=== PATIENT | female | born 1945 | race Caucasian/White ===

== ENCOUNTER → 2016-08-01 | Day surgery (SDC) | payer MEDICARE, OTHER ==
[~2016-08-01] MED LIST: ASPI325T4 PO; ATORVASTATIN CA80 MG PO; CARV12.5 PO; FURO20TA3 PO; GLIP5TAB10 PO; IV RINGERS,LACTATED 1000ML 1,000 ML IV SCH; LISI40TA PO; METF10002 PO; OMEP40CA5 PO; PROPOFOL 60 ML IV ONE; SPIR25TA3 PO
[2016-08-01 10:30] VITALS: BP 139/64
--- NOTE | 2016-08-02 18:05 | PATHOLOGY ---
PATHOLOGY REPORT * * * * * * * * FINAL DIAGNOSIS: A. Duodenal biopsy, duodenal nodule: - Lymphangiectasia. B. Small bowel biopsy: - Prominent submucosal Yenni's glands. C. Gastric biopsy, gastric nodule: - Hyperplastic polyp showing mild acute and chronic inflammation with eosinophils. D. Esophageal biopsy, distal esophagus: - Segments of gastric mucosa showing mild chronic inflammation. E. Colon biopsies, transverse colon polyp: - Tubular adenoma. F. Colon biopsies, cecal polyp: - Tubular adenoma. G. Terminal ileum biopsy: - No significant pathologic abnormalities. H. Random colon biopsy: - No significant pathologic abnormalities. I. Colon biopsy, ascending colon polyp: - Tubular adenoma. J. Colorectal biopsies, rectal polyps: - Hyperplastic polyps (2). - Tubular adenoma (1). COMMENT: Sections of the duodenal nodule biopsy reveal dilated lacteals expanding the mucosal villi and forming a polypoid mass, consistent with lymphangiectasia. Sections of the small bowel biopsy reveal segments of duodenal mucosa showing prominent submucosal Yenni's glands. There are no sprue-like changes. Sections of the gastric nodule biopsy show foveolar hyperplasia and mild acute and chronic inflammation with admixed eosinophils. An immunoperoxidase stain for Helicobacter reveals no Helicobacter organisms. The findings are consistent with a hyperplastic polyp. There are no adenomatous changes or evidence of malignancy. Sections of the distal esophageal biopsy reveal segments of gastric mucosa showing mild chronic inflammation. There is no squamous esophageal mucosa. There is no evidence of Blunt's change, dysplasia, or malignancy. Sections of the transverse colon and cecal biopsies reveal tubular adenomas showing no high-grade dysplasia or evidence of malignancy. Sections of the terminal ileum biopsy reveal small intestine mucosa. There are no sprue-like changes or significant inflammatory changes. Sections of the random colon biopsy reveal segments of colonic mucosa. There is no evidence of a chronic destructive colitis, lymphocytic colitis, or collagenous colitis. Sections of the ascending colon biopsy reveal a tubular adenoma showing no high-grade dysplasia or evidence of malignancy. Sections of the rectal biopsies reveal two hyperplastic polyps and a single tubular adenoma. There is no high-grade dysplasia or evidence of malignancy. (LENM:; d/t: 08/02/16) Special Stain Performed: Immunoperoxidase stain for Helicobacter (C1) REPORT ELECTRONICALLY SIGNED BY: Dereck Narayan M.D. DATE/TIME: 08/02/2016 17:34 * * * * * * * * GROSS PATHOLOGY: A. Received in formalin labeled "Jeffrey, Rina and duodenal nodule," is a segment of nicole soft tissue measuring 0.3 cm in maximum dimension. The specimen is submitted entirely in cassette A1. B. Received in formalin labeled "Jeffrey, Rina and small bowel," are 2 segments of nicole soft tissue measuring 0.8 x 0.2 x 0.2 cm in aggregate dimensions and measuring 0.3 and 0.5 cm in maximum dimension. The specimen is submitted entirely in cassette B1. C. Received in formalin labeled "Jeffrey, Rina and gastric nodule," is a segment of nicole soft tissue measuring 0.3 cm in maximum dimension. The specimen is submitted entirely in cassette C1. D. Received in formalin labeled "Jeffrey, Rina and distal esophagus," is a segment of nicole soft tissue measuring 0.5 cm in maximum dimension. The specimen is submitted entirely in cassette D1. E. Received in formalin labeled "Jeffrey, Rina and transverse colon polyp," are 6 segments of nicole soft tissue measuring 1.8 x 0.3 x 0.2 cm in aggregate dimensions and ranging from 0.2 to 0.5 cm in maximum dimension. The specimen is submitted entirely in cassette E1. F. Received in formalin labeled "Jeffrey, Rina and cecal polyp," are 4 segments of nicole soft tissue measuring 1.5 x 0.3 x 0.2 cm in aggregate dimensions and ranging from 0.3 to 0.5 cm in maximum dimension. The specimen is submitted entirely in cassette F1. G. Received in formalin labeled "Jeffrey, Rina and terminal ileum," are 3 segments of nicole soft tissue measuring 0.9 x 0.3 x 0.2 cm in aggregate dimensions and ranging from 0.1 to 0.6 cm in maximum dimension. The specimen is submitted entirely in cassette G1. H. Received in formalin labeled "Jeffrey, Rina and random colon bx," are 4 segments of nicole soft tissue measuring 1.7 x 0.3 x 0.2 cm in aggregate dimensions and ranging from 0.3 to 0.5 cm in maximum dimension. The specimen is submitted entirely in cassette H1. I. Received in formalin labeled "Jeffrey, Rina and ascending polyp," are 2 segments of nicole soft tissue measuring 0.3 x 0.2 x 0.1 cm in aggregate dimensions and measuring 0.1 and 0.2 cm in maximum dimension. The specimen is submitted entirely in cassette I1. J. Received in formalin labeled "Rina Murphy and rectal polyps," are 3 segments of nicole soft tissue measuring 1.0 x 0.2 x 0.2 cm in aggregate dimensions and ranging from 0.3 to 0.4 cm in maximum dimension. The specimen is submitted entirely in cassette J1. (TTL; 08/01/2016) INITIAL CPT CODE(S): A; 46448 B; 09671 C; 56727, 18388 D; 47736 E; 29133 F; 35773 G; 55366 H; 03267 I; 92154 J; 36736 Professional services performed [place] [facility] [place] [address] Technical services performed by [facility] at [address] [place] [address]. SPECIMEN(S) RECEIVED: A.Duodenal nodule B.Small bowel biopsy C.Gastric nodule D.Distal esophagus E.Transverse polyp F.Cecal polyp G.Terminal ileum biopsy H.Random colon biopsies I.Ascending colon polyp J.Rectal polyps CLINICAL HISTORY: GERD, diarrhea PATIENT: RINA MURPHY /AGE: 2 1945 (Age: 71) PATIENT #: [id number] ALT CASE #: SPECIMEN COLLECTION DATE: 08/01/2016 SPECIMEN RECEIVED DATE: 08/01/2016 [facility] - [address] [place] [address] - PHONE: [phone] * * * END OF REPORT * * *
== END | disposition home or self-care (01) ==
LOC: ENDOS 08:20
PROVIDERS: ATTEND Internal Medicine Gastroenterology
DX: K57.30 Diverticulosis of large intestine without perforation or abscess without bleeding (principal); K62.1 Rectal polyp; K64.0 First degree hemorrhoids; D12.0 Benign neoplasm of cecum; D12.3 Benign neoplasm of transverse colon; D12.2 Benign neoplasm of ascending colon; K31.9 Disease of stomach and duodenum, unspecified; K21.0 Gastro-esophageal reflux disease with esophagitis; E78.00 Pure hypercholesterolemia, unspecified; I10 Essential (primary) hypertension; E11.9 Type 2 diabetes mellitus without complications; Z90.49 Acquired absence of other specified parts of digestive tract
CPT/HCPCS: 43239; 45380; 88305; 88342; 99153; G0500; J2704; G0641

== ENCOUNTER 2017-01-17 23:18 | Inpatient (IN) | payer MEDICARE, OTHER ==
[~2017-01-17] VITALS: Ht 165.1 cm; Wt 85.7 kg
[~2017-01-17 23:18] MED LIST changes: -ASPI325T4 PO; +ASPI325T8 PO; -IV RINGERS,LACTATED 1000ML 1,000 ML IV SCH; +METF-620 PO; -METF10002 PO; -PROPOFOL 60 ML IV ONE
[2017-01-18] VITALS (15 sets, daily range): BP systolic 100–149; BP diastolic 64–93
[2017-01-18 00:05] LABS: BASO # 0.1 x10^3/uL (0.0-0.2); BASO % 1 % (0-3); EOS % 1 % (0-3); HEMATOCRIT 38.4 % (36.0-47.0); HEMOGLOBIN 12.3 g/dL (12.0-15.5); LYMPH # 1.3 x10^3/uL (1.0-4.8); LYMPH % 10 % (24-48); MEAN CORPUSCULAR HEMOGLOBIN 28 pg (25-35); MEAN CORPUSCULAR HGB CONC 32 g/dL (31-37); MEAN CORPUSCULAR VOLUME 88 fL (79-100); MONO % 5 % (0-9); NEUT % 84 % (31-73); PLATELET COUNT 197 x10^3/uL (140-400); RED BLOOD COUNT 4.36 x10^6/uL (3.50-5.40); RED CELL DISTRIBUTION WIDTH 13.6 % (11.5-14.5); WHITE BLOOD COUNT 14.2 x10^3/uL (4.0-11.0)
[2017-01-18] MEDS ORDERED: CONTRAST GIVEN MC PRN (00:15)
[2017-01-18 00:16] LABS: CALCIUM 8.8 mg/dL (8.5-10.1); CREATININE 1.2 mg/dL (0.6-1.0); GFR 44.5; POTASSIUM 4.1 mmol/L (3.5-5.1)
[2017-01-18 00:22] LABS: ALBUMIN 3.6 g/dL (3.4-5.0); ALBUMIN/GLOBULIN RATIO 1.2 (1.0-1.7); TOTAL BILIRUBIN 0.8 mg/dL (0.2-1.0); TOTAL PROTEIN 6.7 g/dL (6.4-8.2)
[2017-01-18] MEDS ORDERED: IOHEXOL 300 MG/ML 75 ML VIAL IV ONE (00:30)
[2017-01-18] MEDS ORDERED: IV NORMAL SALINE 1000ML BAG 1,000 ML IV ONE (00:30)
--- NOTE | 2017-01-18 00:36 | PHYS DOC ---
Past Medical History Past Medical History: Diabetes-Type II, DVT, Hypertension, PA Past Surgical History: Cholecystectomy, Other Additional Past Surgical Histo: CATARACT, Alcohol Use: None Drug Use: None Adult General Chief Complaint Chief Complaint: CHEST PAIN HPI HPI Patient is a 71 year old F who presents with chest pain shortness of breath for the past day. Patient states she's developed left-sided chest pain or shortness of breath that feels like her previous PA. Patient denies any stent or bypass surgery. Patient states she is a history of PEs however does not want adequate medication at this time. Patient has a history of hypertension and hypercholesterol. Patient denies any nausea/vomiting/diarrhea. Patient denies any fevers. Patient rates her pain in the emergency room 09/28 with radiation to her back. Patient has no other complaints. Review of Systems Review of Systems GEN: Denies fevers, chills, sweats HEENT: Denies blurred vision, sore throat CV: Chest pain RESP: Short of breath GI: Denies n/v/d NEURO: Denies confusion, dizziness MSK: Denies weakness, joint pain/swelling Current Medications Current Medications Current Medications Medications (Trade) Dose Ordered Sig/Radha Start Time Stop Time Status Last Admin Dose Admin Aspirin (Children'S Aspirin) 324 mg 1X ONCE 01/18/17 01:00 01/18/17 01:01 DC 01/18/17 00:36 324 MG Heparin Sodium (Porcine) (Heparin Sodium) 2,150 unit PRN Q6HRS PRN 01/18/17 01:15 Heparin Sodium/ Dextrose 500 ml @ 0 mls/hr CONT PRN 01/18/17 01:15 01/18/17 01:37 20 MLS/HR Info (Do NOT chart on this entry -- for MONITORING) 1 each PRN DAILY PRN 01/18/17 00:15 01/20/17 00:14 Iohexol (Omnipaque 300 Mg/ml) 75 ml 1X ONCE 01/18/17 00:30 01/18/17 00:31 DC 01/18/17 00:41 60 ML Sodium Chloride 1,000 ml @ 1,000 mls/hr 1X ONCE 01/18/17 00:30 01/18/17 01:29 DC 01/18/17 00:15 1,000 MLS/HR Allergies Allergies Allergies Coded Allergies Type Severity Reaction Last Updated Verified No Known Drug Allergies 4/13/17 No Physical Exam Physical Exam GEN.: No apparent distress. Alert and oriented. HEENT: Head is normocephalic, atraumatic NECK: Supple. LUNGS: CTAB. HEART: RRR, S1, S2 present. Peripheral pulses intact ABDOMEN: Soft, nontender. Positive bowel sounds. EXTREMITIES: Without any cyanosis. NEUROLOGIC: Normal speech, normal tone PSYCHIATRIC: Normal affect, normal mood. SKIN: No ulcerations Current Patient Data Vital Signs Vital Signs Date Time Temp Pulse Resp B/P (MAP) Pulse Ox O2 Delivery O2 Flow Rate FiO2 01/18/17 00:22 78 14 107/69 (82) 92 Room Air 01/17/17 23:25 97.5 97.5 Lab Values Laboratory Tests Test 01/17/17 23:24 White Blood Count 14.2 x10^3/uL (4.0-11.0) H Red Blood Count 4.36 x10^6/uL (3.50-5.40) Hemoglobin 12.3 g/dL (12.0-15.5) Hematocrit 38.4 % (36.0-47.0) Mean Corpuscular Volume 88 fL (79-100) Mean Corpuscular Hemoglobin 28 pg (25-35) Mean Corpuscular Hemoglobin Concent 32 g/dL (31-37) Red Cell Distribution Width 13.6 % (11.5-14.5) Platelet Count 197 x10^3/uL (140-400) Neutrophils (%) (Auto) 84 % (31-73) H Lymphocytes (%) (Auto) 10 % (24-48) L Monocytes (%) (Auto) 5 % (0-9) Eosinophils (%) (Auto) 1 % (0-3) Basophils (%) (Auto) 1 % (0-3) Neutrophils # (Auto) 11.9 x10^3uL (1.8-7.7) H Lymphocytes # (Auto) 1.3 x10^3/uL (1.0-4.8) Monocytes # (Auto) 0.7 x10^3/uL (0.0-1.1) Eosinophils # (Auto) 0.2 x10^3/uL (0.0-0.7) Basophils # (Auto) 0.1 x10^3/uL (0.0-0.2) Sodium Level 137 mmol/L (136-145) Potassium Level 4.1 mmol/L (3.5-5.1) Chloride Level 101 mmol/L (98-107) Carbon Dioxide Level 25 mmol/L (21-32) Anion Gap 11 (6-14) Blood Urea Nitrogen 18 mg/dL (7-20) Creatinine 1.2 mg/dL (0.6-1.0) H Estimated GFR (Cockcroft-Gault) 44.5 BUN/Creatinine Ratio 15 (6-20) Glucose Level 180 mg/dL (70-99) H Calcium Level 8.8 mg/dL (8.5-10.1) Total Bilirubin 0.8 mg/dL (0.2-1.0) Aspartate Amino Transferase (AST) 20 U/L (15-37) Alanine Aminotransferase (ALT) 23 U/L (14-59) Alkaline Phosphatase 118 U/L (46-116) H Troponin I Quantitative 1.304 ng/mL (0.000-0.055) Total Protein 6.7 g/dL (6.4-8.2) Albumin 3.6 g/dL (3.4-5.0) Albumin/Globulin Ratio 1.2 (1.0-1.7) Laboratory Tests 01/17/17 23:24 Laboratory Tests 01/17/17 23:24 EKG EKG 2327: EKG shows normal sinus rhythm rate of 83 no STEMI 0023: Repeat EKG shows normal sinus rhythm rate of 81 no STEMI and no overall change from previous EKG[] Radiology/Procedures Radiology/Procedures Chest x-ray CM[] CTA of the chest IMPRESSION: 1. No central pulmonary embolus. Limited peripherally secondary to motion. There is one region of low-attenuation within a subsegmental pulmonary artery in the right lower lung that this is in a region of motion therefore this could all be from motion artifact but a tiny nonobstructive pulmonary embolus to this region is not excluded. Please note that contrast is seen distal to this region therefore even if there is a filling defect in the area it does not appear obstructive. 2. Small pleural effusions with interstitial thickening bilaterally as well as groundglass opacities. Could be from pulmonary edema although regions of airway inflammation is not excluded given the groundglass component. Course & Med Decision Making Course & Med Decision Making Pertinent Labs and Imaging studies reviewed. (See chart for details) ED course: Patient was seen and examined emergency room cardiac workup was ordered on the patient along with a CT angios the chest to rule out PE 0015: Lab called for an elevated troponin of 1.30 4 repeat EKG was ordered at this time 0128: Discussed CC/HP/PMH with Dr. Soriano and recommends admit to the ICU on a heparin drip and a nitro drip 0136: Discussed CC/HP/PMH with Dr. Jacobs and recommends admit to the ICU MDM: After reviewing the chart, CC/HPI/PMH, physical exam, [lab results], [ radiological results], I do not believe the patient's having a STEMI after 2 EK[address] do not show ST elevations consistent with a STEMI however the patient has elevated troponin with concerning signs for unstable angina and NSTEMI. Patient will be admitted to the cardiac ICU on a heparin drip and a nitro drip to medicine with cardiology on consult. Critical care time was 35 minutes exclusive of procedures.[] Dragon Disclaimer Dragon Disclaimer This electronic medical record was generated, in whole or in part, using a voice recognition dictation system. Departure Departure Impression: Primary Impression: NSTEMI (non-ST elevated myocardial infarction) Disposition: ADMITTED INPATIENT Admitting Physician: Pita Mathur Condition: STABLE Referrals: ELIZABETH NELSON MD (PCP) MANAV MERCEDES DO Jan 18, 2017 00:36
[2017-01-18] MEDS ORDERED: ASPIRIN CHEWABLE 81 MG TABLET. PO ONE (01:00)
[2017-01-18] MEDS ORDERED: HEPARIN for IV BOLUS 10,000 UNIT/10 ML VIAL. IV PRN (01:15)
[2017-01-18] MEDS ORDERED: NITROGLYCERIN SUBLINGUAL 0.4 MG BOTTLE OF 25. SL PRN (01:30)
[2017-01-18] MEDS ORDERED: ONDANSETRON PF 4 MG/2 ML VIAL. IV PRN (01:30)
[2017-01-18] MEDS ORDERED: ACETAMINOPHEN 325 MG TABLET. PO PRN (01:30)
[2017-01-18] MEDS ORDERED: MORPHINE SULFATE 4 MG/ML DISP.SYRIN. IV PRN (01:30)
[2017-01-18] MEDS: HEPARIN 25,000UTS/500ML PREMIX 500 ML IV PRN ×2 (01:37→23:18)
--- NOTE | 2017-01-18 01:56 | RAD ---
INDICATION: chest pain and shortness of breath, hx of DVT COMPARISON: September 24, 2004 TECHNIQUE: Axial CT images obtained through the chest. Intravenous contrast utilized. Angiogram 3D images processed per protocol. One or more of the following individualized dose reduction techniques were utilized for this examination: 1. Automated exposure control; 2. Adjustment of the mA and/or kV according to patient size; 3. Use of iterative reconstruction technique. FINDINGS: Mild interstitial opacities bilaterally. There is some mild groundglass opacities bilaterally. Small pleural effusions. No evidence of pneumothorax. There is very little contrast within the thoracic aorta therefore is not well evaluated on this exam. No definite aneurysm. Calcific atherosclerosis is seen. Nodular thickening of left adrenal gland, is low-attenuation therefore favor adenoma. Coronary artery calcific atherosclerosis. Degenerative changes spine. No embolus in the central pulmonary arteries. Limited peripherally secondary to motion IMPRESSION: 1. No central pulmonary embolus. Limited peripherally secondary to motion. There is one region of low-attenuation within a subsegmental pulmonary artery in the right lower lung that this is in a region of motion therefore this could all be from motion artifact but a tiny nonobstructive pulmonary embolus to this region is not excluded. Please note that contrast is seen distal to this region therefore even if there is a filling defect in the area it does not appear obstructive. 2. Small pleural effusions with interstitial thickening bilaterally as well as groundglass opacities. Could be from pulmonary edema although regions of airway inflammation is not excluded given the groundglass component. Electronically signed by: Jonathon Bowles MD (01/18/2017 1:52 AM) [facility]
[2017-01-18] MEDS ORDERED: HEPARIN for IV BOLUS 10,000 UNIT/10 ML VIAL. IV ONE (02:00)
[2017-01-18] MEDS ORDERED: NITROGLYCERIN PREMIX 250 ML IV ONE (02:00)
[2017-01-18] MEDS ORDERED: GLIP5TAB10 PO (03:11)
[2017-01-18] MEDS ORDERED: FURO40TA4 PO (03:11)
[2017-01-18] MEDS ORDERED: CARV25TA2 PO (03:11)
[2017-01-18] MEDS: ANTI-COAG MONITOR BY PHARMACY. MC PRN ×2 (04:00→11:05)
--- NOTE | 2017-01-18 08:09 | RAD ---
Portable AP chest. History: Short of breath, chest pain AP view was taken of the chest. Patient's taken a poor inspiration. There is mild pulmonary vascular congestion. There are no confluent areas of infiltrate. There is no effusion. Impression: 1. Mild pulmonary vascular congestion or mild interstitial infiltrates.
--- NOTE | 2017-01-18 08:27 | CONS ---
DATE OF CONSULTATION: 01/18/2017 REASON FOR CONSULTATION: Non-ST elevation DE. HISTORY OF PRESENT ILLNESS: The patient is a pleasant 71-year-old woman who presented to the ER with chest pressure and discomfort yesterday evening while at a baseball game with her family. She reported that this was a similar, but not exactly in nature to her previous hospitalization several years ago for what appears to be a myocardial infarction without any intervention. The patient reports at baseline that she is functional and denies any exertional chest pain, orthopnea, PND or lower extremity edema. She follows regularly with Dr. Dias at [facility] and was due to follow up with him in the next several days. She denies any syncope or palpitations. Reports compliance with her medications. Upon arrival in the ER, she was noted to have chest discomfort which resolved with nitroglycerin and due to the elevated troponin, was started on a heparin drip and admitted to the ICU for further evaluation and treatment. Overnight, the patient reports that her chest pain is diminished, but has not completely abated. PAST MEDICAL HISTORY: 1. Hypertension. 2. Diabetes. SOCIAL HISTORY: The patient denies any alcohol, tobacco or illicit drug use. ALLERGIES: No known drug allergies. FAMILY HISTORY: Noncontributory. REVIEW OF SYSTEMS: Negative for 10 out of 14 systems reviewed, unless otherwise mentioned above in HPI. CURRENT CARDIOVASCULAR MEDICATIONS: Heparin drip. PHYSICAL EXAMINATION: VITAL SIGNS: Afebrile, 82, 20, 128/72, 96% on room air. GENERAL: She is alert and oriented, in no acute distress. HEAD AND NECK: Unremarkable. CARDIAC: Regular rate and rhythm without any murmurs, rubs or gallops. LUNGS: Clear to auscultation bilaterally. ABDOMEN: Soft, nontender, nondistended. EXTREMITIES: No clubbing, cyanosis or edema. NEUROLOGIC: No focal deficits. MUSCULOSKELETAL: No trauma. DIAGNOSTIC STUDIES: Hemoglobin 12.3, platelets 197. Creatinine 1.2. Troponin 1.3. Normal liver function panel. CTA of the chest is unremarkable for any acute pulmonary emboli. There are small bilateral pleural effusions. EKG is sinus rhythm without any acute ST or T-wave changes. IMPRESSION: 1. Unstable acute coronary syndrome with elevated troponin consistent with a non-ST elevation myocardial infarction. 2. Hypertension, controlled. 3. Diabetes. RECOMMENDATIONS: 1. Given that the patient has multiple risk factors with classic symptoms of acute coronary syndrome with elevated biomarkers, we will plan for a cardiac catheterization in the next 48 hours. If her enzymes or symptoms necessitate, we will pursue a cardiac catheterization sooner. 2. We will start the patient on aspirin 81 mg daily, continue the heparin drip as well as initiate her on metoprolol 25 mg b.i.d. in addition to atorvastatin 40 mg daily. Thank you for this consultation. IOANA QUIROS MD DR: KENNETH/dereck JOB#: [id number] / [id number]
[2017-01-18] MEDS: ASPIRIN CHEWABLE 81 MG TABLET. PO SCH (08:38)
[2017-01-18] MEDS: METOPROLOL TART IMMED RELEASE 25 MG TABLET. PO SCH ×2 (08:38→21:19)
[2017-01-18] MEDS ORDERED: FLU VACC QS2017-18 (36MOS+)/PF 0.5 ML SYRINGE. VAX IM ONE (09:00)
[2017-01-18] MEDS ORDERED: PNEUMOC CONJ VACC 23-VALENT 0.5 ML VIAL. VAX IM ONE (09:00)
[2017-01-18] MEDS ORDERED: FUROSEMIDE 40 MG/4 ML VIAL. IVP ONE (09:30)
[2017-01-18] MEDS ORDERED: DEXTROSE 50% 25 GM / 50ML DISP.SYRIN. IV PRN (10:30)
[2017-01-18] MEDS: SPIRONOLACTONE 25 MG TABLET PO SCH (11:01)
[2017-01-18] MEDS: PANTOPRAZOLE 40 MG TABLET.DR. PO SCH (11:01)
[2017-01-18] MEDS: FUROSEMIDE 40 MG TABLET. PO SCH (11:01)
[2017-01-18] MEDS: INSULIN ASPART 300 UNITS/3 ML INSULN.PEN SQ SCH ×2 (11:50→17:11)
[2017-01-18] MEDS ORDERED: PNEUMOCOCCAL VAX SCREEN BY RX. MC ONE (12:00)
[2017-01-18] MEDS ORDERED: INFLUENZA VAX SCREEN BY RX. MC ONE (12:00)
--- NOTE | 2017-01-18 12:51 | EKG ---
[facility] [address] [place] [address] Test Date: 2017-01-17 Test Time: 23:23:55 Pat Name: RINA SIN Department: Room: 114 1 Gender: F [employer]: : 1945 Requested By: MANAV MERCEDES Order Number: [id number] Reading MD: Bulmaro Gibson Measurements Intervals [place] Rate: 83 P: 31 MD: 148 QRS: 1 QRSD: 78 T: 60 QT: 354 QTc: 416 Interpretive Statements SINUS RHYTHM NONSPECIFIC ST-T WAVE CHANGES. RI6.01 Unconfirmed report No previous ECG available for comparison Electronically Signed On 02-05-2017 10:44:02 CDT by Bulmaro Gibson
--- NOTE | 2017-01-18 12:52 | EKG ---
[facility] [address] [place] [address] Test Date: 2017-01-18 Test Time: 00:29:15 Pat Name: RINA SIN Department: Room: 114 1 Gender: F Automatic [employer]: : 1945 Requested By: MANAV MERCEDES Order Number: [id number] Reading MD: Bulmaro Gibson Measurements Intervals [place] Rate: 81 P: 62 IA: 146 QRS: 17 QRSD: 86 T: 28 QT: 406 QTc: 472 Interpretive Statements SINUS RHYTHM PROLONGED QT RI6.01 Unconfirmed report No previous ECG available for comparison Electronically Signed On 02-05-2017 10:44:16 CDT by Bulmaro Gibson
--- NOTE | 2017-01-18 13:01 | PDOC1 ---
History and Physical Date of Admission Date of Admission 01/18/17 Identification/Chief Complaint Chief Complaint SOB,CP Problems: Source Source: Chart review, Patient History of Present Illness History of Present Illness Patient is a 71 year old F who presents with chest pain shortness of breath for the past day. Patient states she was at [employer] game felt [place] and nausea , on the way to car was very short winded and thought might not make it to the car, on the way developed left-sided chest pain that feels like her previous AR. Patient denies any stent or bypass surgery but had AR without intervention in past . Patient states she is a history of PE . Patient has a history of hypertension and hypercholesterolemia . Patient denies any vomiting/diarrhea. Patient denies any fevers. Patient rated her pain in the emergency room /10 with radiation to her back. Patient has no other complaints. Past Medical History Cardiovascular: CAD, CHF, HTN, AR, Hyperlipidemia Pulmonary: Bronchitis, Pulmonary embolus, Other (DVT) CENTRAL NERVOUS SYSTEM: Periperal neuropathy GI: GERD Hepatobiliary: Other (cholecystectomy) Psych: Anxiety Rheumatologic: Other (arthritis) Infectious disease: No pertinent hx Renal/: UTI Endocrine: Diabetes Dermatology: No pertinent hx Past Surgical History Past Surgical History: Cholecystectomy Family History Family History: Diabetes, Hypertension Social History Smoke: Quit ALCOHOL: rare Drugs: None Current Problem List Problem List Problems Medical Problems: (1) NSTEMI (non-ST elevated myocardial infarction) Status: Acute Current Medications Current Medications Current Medications Medications (Trade) Dose Ordered Sig/Radha Start Time Stop Time Status Last Admin Dose Admin Acetaminophen (Tylenol) 650 mg PRN Q4HRS PRN 01/18/17 01:30 01/19/17 01:29 Aspirin (Children'S Aspirin) 81 mg DAILYWBKFT 01/18/17 08:00 01/18/17 08:38 81 MG Atorvastatin Calcium (Lipitor) 80 mg QHS 01/18/17 21:00 Carvedilol (Coreg) 12.5 mg HS 01/18/17 21:00 UNV Dextrose (Dextrose 50%-Water Syringe) 12.5 gm PRN Q15MIN PRN 01/18/17 10:30 Furosemide (Lasix) 40 mg DAILY 01/18/17 11:00 01/18/17 11:01 40 MG Heparin Sodium (Porcine) (Heparin Sodium) 4,000 unit 1X ONCE 01/18/17 02:00 01/18/17 02:01 DC 01/18/17 01:31 4,000 UNIT Heparin Sodium/ Dextrose 500 ml @ 0 mls/hr CONT PRN 01/18/17 01:15 01/18/17 01:37 20 MLS/HR Influenza Virus Vaccine Quadrival (Fluarix Quad [id number] Syringe) 0.5 ml ONCE ONCE 01/18/17 09:00 01/18/17 09:01 DC 01/18/17 08:40 0.5 ML Info (Anti-Coagulation Monitoring By Pharmacy) 1 each PRN DAILY PRN 01/18/17 01:30 01/18/17 11:05 1 EACH Info (Do NOT chart on this entry -- for MONITORING) 1 each PRN DAILY PRN 01/18/17 00:15 01/20/17 00:14 Info (Do NOT chart on this placeholder) 1 each 1X ONCE 01/18/17 12:00 01/18/17 12:01 UNV Insulin Aspart (NovoLOG) 0-7 UNITS TIDWMEALS 01/18/17 12:00 01/18/17 11:50 4 UNITS Insulin Detemir (Levemir) 5 units QHS 01/18/17 21:00 Iohexol (Omnipaque 300 Mg/ml) 75 ml 1X ONCE 01/18/17 00:30 01/18/17 00:31 DC 01/18/17 00:41 60 ML Metoprolol Tartrate (Lopressor) 25 mg BID 01/18/17 09:00 01/18/17 08:38 25 MG Morphine Sulfate 4 mg PRN Q2HR PRN 01/18/17 01:30 01/19/17 01:29 Nitroglycerin (Nitrostat) 0.4 mg PRN Q5MIN PRN 01/18/17 01:30 01/19/17 01:29 Nitroglycerin/ Dextrose 250 ml @ 0 mls/hr 1X ONCE 01/18/17 02:00 01/18/17 02:01 DC 01/18/17 01:41 1.5 MLS/HR Non-Formulary Medication 1 tab DAILY 01/19/17 09:00 UNV Ondansetron HCl (Zofran) 4 mg PRN Q8HRS PRN 01/18/17 01:30 01/19/17 01:29 Pantoprazole Sodium (Protonix) 40 mg DAILYAC 01/18/17 11:00 01/18/17 11:01 40 MG Pneumococcal Polyvalent Vaccine (Do NOT chart on this placeholder) 1 each 1X ONCE 01/18/17 12:00 01/18/17 12:01 UNV Pneumococcal Polyvalent Vaccine (Pneumovax 23) 0.5 ml ONCE ONCE 01/18/17 09:00 01/18/17 09:01 DC 01/18/17 08:39 0.5 ML Sodium Chloride 1,000 ml @ 1,000 mls/hr 1X ONCE 01/18/17 00:30 01/18/17 01:29 DC 01/18/17 00:15 1,000 MLS/HR Spironolactone (Aldactone) 25 mg DAILY 01/18/17 11:00 01/18/17 11:01 25 MG Allergies Allergies Allergies Coded Allergies Type Severity Reaction Last Updated Verified No Known Drug Allergies 08/01/16 No ROS Review of System CONSTITUTIONAL: No fever or chills EYES: No recent changes SKIN: No rash or itching CARDIOVASCULAR: see HPI,No palpitations RESPIRATORY: + SOB no cough GASTROINTESTINAL: + nausea, No vomiting or abdominal pain NEUROLOGICAL: +headaches and mild weakness ENDOCRINE: No cold or heat intolerance GENITOURINARY: No urgency or frequency of urination MUSCULOSKELETAL: No back pain or joint pain LYMPHATICS: No enlarged lymph nodes Physical Exam Physical Exam GEN.: No apparent distress. Alert and oriented. HEENT: Head is normocephalic, atraumatic NECK: Supple. LUNGS: basilar rales HEART: RRR, S1, S2 present. Peripheral pulses intact ABDOMEN: Soft, nontender. Positive bowel sounds. EXTREMITIES: Without any cyanosis. NEUROLOGIC: Normal speech, normal tone PSYCHIATRIC: Normal affect, normal mood. SKIN: No ulcerations Vitals Vitals Vital Signs Date Time Temp Pulse Resp B/P (MAP) Pulse Ox O2 Delivery O2 Flow Rate FiO2 01/18/17 12:00 97.5 64 27 109/77 (88) 98 Room Air 97.5 Labs Labs Laboratory Tests Test 01/17/17 23:24 01/18/17 07:59 01/18/17 11:48 White Blood Count 14.2 x10^3/uL (4.0-11.0) Red Blood Count 4.36 x10^6/uL (3.50-5.40) Hemoglobin 12.3 g/dL (12.0-15.5) Hematocrit 38.4 % (36.0-47.0) Mean Corpuscular Volume 88 fL (79-100) Mean Corpuscular Hemoglobin 28 pg (25-35) Mean Corpuscular Hemoglobin Concent 32 g/dL (31-37) Red Cell Distribution Width 13.6 % (11.5-14.5) Platelet Count 197 x10^3/uL (140-400) Neutrophils (%) (Auto) 84 % (31-73) Lymphocytes (%) (Auto) 10 % (24-48) Monocytes (%) (Auto) 5 % (0-9) Eosinophils (%) (Auto) 1 % (0-3) Basophils (%) (Auto) 1 % (0-3) Neutrophils # (Auto) 11.9 x10^3uL (1.8-7.7) Lymphocytes # (Auto) 1.3 x10^3/uL (1.0-4.8) Monocytes # (Auto) 0.7 x10^3/uL (0.0-1.1) Eosinophils # (Auto) 0.2 x10^3/uL (0.0-0.7) Basophils # (Auto) 0.1 x10^3/uL (0.0-0.2) Sodium Level 137 mmol/L (136-145) Potassium Level 4.1 mmol/L (3.5-5.1) Chloride Level 101 mmol/L (98-107) Carbon Dioxide Level 25 mmol/L (21-32) Anion Gap 11 (6-14) Blood Urea Nitrogen 18 mg/dL (7-20) Creatinine 1.2 mg/dL (0.6-1.0) Estimated GFR (Cockcroft-Gault) 44.5 BUN/Creatinine Ratio 15 (6-20) Glucose Level 180 mg/dL (70-99) Calcium Level 8.8 mg/dL (8.5-10.1) Total Bilirubin 0.8 mg/dL (0.2-1.0) Aspartate Amino Transf (AST/SGOT) 20 U/L (15-37) Alanine Aminotransferase (ALT/SGPT) 23 U/L (14-59) Alkaline Phosphatase 118 U/L (46-116) Troponin I Quantitative 1.304 ng/mL (0.000-0.055) 1.384 ng/mL (0.000-0.055) Total Protein 6.7 g/dL (6.4-8.2) Albumin 3.6 g/dL (3.4-5.0) Albumin/Globulin Ratio 1.2 (1.0-1.7) PY-Pjg-J-Type Natriuretic Peptide 3605 pg/mL (0-124) Glucose (Fingerstick) 222 mg/dL (70-99) Laboratory Tests Test 01/17/17 23:24 01/18/17 07:59 01/18/17 11:48 White Blood Count 14.2 x10^3/uL (4.0-11.0) Red Blood Count 4.36 x10^6/uL (3.50-5.40) Hemoglobin 12.3 g/dL (12.0-15.5) Hematocrit 38.4 % (36.0-47.0) Mean Corpuscular Volume 88 fL (79-100) Mean Corpuscular Hemoglobin 28 pg (25-35) Mean Corpuscular Hemoglobin Concent 32 g/dL (31-37) Red Cell Distribution Width 13.6 % (11.5-14.5) Platelet Count 197 x10^3/uL (140-400) Neutrophils (%) (Auto) 84 % (31-73) Lymphocytes (%) (Auto) 10 % (24-48) Monocytes (%) (Auto) 5 % (0-9) Eosinophils (%) (Auto) 1 % (0-3) Basophils (%) (Auto) 1 % (0-3) Neutrophils # (Auto) 11.9 x10^3uL (1.8-7.7) Lymphocytes # (Auto) 1.3 x10^3/uL (1.0-4.8) Monocytes # (Auto) 0.7 x10^3/uL (0.0-1.1) Eosinophils # (Auto) 0.2 x10^3/uL (0.0-0.7) Basophils # (Auto) 0.1 x10^3/uL (0.0-0.2) Sodium Level 137 mmol/L (136-145) Potassium Level 4.1 mmol/L (3.5-5.1) Chloride Level 101 mmol/L (98-107) Carbon Dioxide Level 25 mmol/L (21-32) Anion Gap 11 (6-14) Blood Urea Nitrogen 18 mg/dL (7-20) Creatinine 1.2 mg/dL (0.6-1.0) Estimated GFR (Cockcroft-Gault) 44.5 BUN/Creatinine Ratio 15 (6-20) Glucose Level 180 mg/dL (70-99) Calcium Level 8.8 mg/dL (8.5-10.1) Total Bilirubin 0.8 mg/dL (0.2-1.0) Aspartate Amino Transf (AST/SGOT) 20 U/L (15-37) Alanine Aminotransferase (ALT/SGPT) 23 U/L (14-59) Alkaline Phosphatase 118 U/L (46-116) Troponin I Quantitative 1.304 ng/mL (0.000-0.055) 1.384 ng/mL (0.000-0.055) Total Protein 6.7 g/dL (6.4-8.2) Albumin 3.6 g/dL (3.4-5.0) Albumin/Globulin Ratio 1.2 (1.0-1.7) AM-Hqc-M-Type Natriuretic Peptide 3605 pg/mL (0-124) Glucose (Fingerstick) 222 mg/dL (70-99) VTE Prophylaxis Ordered VTE Prophylaxis Devices: Yes VTE Pharmacological Prophylaxi: Yes Assessment/Plan Assessment/Plan 1-NSTEMI 2-acute CHF 3-DM II 4-HTN 5-HLD pt on anticoagulation, NTG, lasix and close monitoring, plan for cath Friday noted , control pain , hold metformin and monitor BS , appreciate C.V KLEVER Sharma MD Jan 18, 2017 13:01
[2017-01-18] MEDS ORDERED: ATORVASTATIN CALCIUM 40 MG TABLET. PO SCH (21:00)
[2017-01-18] MEDS ORDERED: CARVEDILOL 12.5 MG TABLET. PO SCH (21:00)
[2017-01-18] MEDS: ATORVASTATIN CALCIUM 40 MG TABLET. PO SCH (21:19)
[2017-01-18] MEDS: INSULIN DETEMIR 300 UNITS/3 ML INSULN.PEN. SQ SCH (21:21)
[2017-01-19] VITALS: BP 117/70
[2017-01-19 03:31] LABS: BASO # 0.1 x10^3/uL (0.0-0.2); BASO % 1 % (0-3); EOS % 2 % (0-3); HEMOGLOBIN 11.9 g/dL (12.0-15.5); LYMPH # 1.7 x10^3/uL (1.0-4.8); LYMPH % 18 % (24-48); MEAN CORPUSCULAR HEMOGLOBIN 29 pg (25-35); MEAN CORPUSCULAR HGB CONC 33 g/dL (31-37); MEAN CORPUSCULAR VOLUME 88 fL (79-100); MONO % 7 % (0-9); NEUT % 73 % (31-73); PLATELET COUNT 164 x10^3/uL (140-400); RED BLOOD COUNT 4.09 x10^6/uL (3.50-5.40); RED CELL DISTRIBUTION WIDTH 13.8 % (11.5-14.5); WHITE BLOOD COUNT 9.4 x10^3/uL (4.0-11.0)
[2017-01-19 03:47] LABS: CALCIUM 8.7 mg/dL (8.5-10.1); CREATININE 1.5 mg/dL (0.6-1.0); GFR 34.4; POTASSIUM 4.1 mmol/L (3.5-5.1)
[2017-01-19 04:00] VITALS: BP 113/90
[2017-01-19] MEDS: ASPIRIN CHEWABLE 81 MG TABLET. PO SCH (07:46)
[2017-01-19] MEDS: PANTOPRAZOLE 40 MG TABLET.DR. PO SCH (07:46)
[2017-01-19] MEDS: INSULIN ASPART 300 UNITS/3 ML INSULN.PEN SQ SCH ×3 (07:46→17:00)
[2017-01-19] MEDS: FUROSEMIDE 40 MG TABLET. PO SCH (07:54)
[2017-01-19] MEDS: SPIRONOLACTONE 25 MG TABLET PO SCH (07:54)
--- NOTE | 2017-01-19 07:55 | PDOC ---
CARDIOLOGY PROGRESS NOTE SUBJECTIVE: New onset atrial fibrillation overnight. Denies any new pain/symptoms at this time. OBJECTIVE: Vital SIgns: Vital Signs Date Time Temp Pulse Resp B/P (MAP) Pulse Ox O2 Delivery O2 Flow Rate FiO2 01/19/17 04:00 98.5 122 17 113/90 (98) 97 Room Air 98.5 Objective: GEN.: No apparent distress. Alert and oriented. HEENT: Head is normocephalic, atraumatic NECK: Supple. LUNGS: Clear to auscultation. HEART: RRR, S1, S2 present. Peripheral pulses intact ABDOMEN: Soft, nontender. Positive bowel sounds. EXTREMITIES: Without any cyanosis. NEUROLOGIC: Normal speech, normal tone PSYCHIATRIC: Normal affect, normal mood. SKIN: No ulcerations CURRENT MEDICATIONS: Atorvastatin 80mg qhs Spironolactone 25mg daily Lasix 40mg daily Metop 25mg bid Hep gtt ASA 81mg daily DIAGNOSTIC TESTING: Cr 1.2 to 1.5 ASSESSMENT: 1. NSTEMI 2. HTN 3. DLP 4. RACHELLE on mild CKD 5. PAF Problems: PLAN: 1. Hold lasix, spironolactone 2. Give 500ml NS bolus 3. Repeat BMP tonight. 4. Plan for cardiac cath tomorrow unless worsening cr. 5. Strict I/O's. Discussed with family and RN. Thanks. Will follow. IOANA QUIROS MD Jan 19, 2017 07:55
[2017-01-19 08:00] VITALS: BP 154/76
[2017-01-19] MEDS ORDERED: IV NORMAL SALINE 500ML BAG 500 ML IV ONE (08:00)
[2017-01-19] MEDS: METOPROLOL TART IMMED RELEASE 25 MG TABLET. PO SCH ×2 (09:00→20:32)
[2017-01-19] MEDS ORDERED: NON FORMULARY ITEM (Carvedilol 1 TAB) PO SCH (09:00)
[2017-01-19] MEDS: ANTI-COAG MONITOR BY PHARMACY. MC PRN (10:27)
[2017-01-19 12:00] VITALS: BP 108/63
--- NOTE | 2017-01-19 12:30 | PDOC ---
SUBJECTIVE Subjective had A Fib between 3-6 AM back in sinus now, no further CP, OBJECTIVE Vital Signs Vital Signs Date Time Temp Pulse Resp B/P (MAP) Pulse Ox O2 Delivery O2 Flow Rate FiO2 01/19/17 09:00 61 154/76 01/19/17 08:00 Room Air 01/19/17 08:00 97.5 64 26 154/76 (102) 98 Room Air 97.5 01/19/17 04:00 98.5 122 17 113/90 (98) 97 Room Air 98.5 01/19/17 00:00 98.5 74 20 117/70 (86) 97 Room Air 98.5 01/18/17 21:19 75 102/65 01/18/17 20:00 98.1 86 21 141/93 (109) 100 Room Air 98.1 01/18/17 20:00 Room Air 01/18/17 16:00 97.9 69 21 102/65 (77) 98 Room Air 97.9 PHYSICAL EXAM Physical Exam lungs clear heart RRR abd soft ext no edema ASSESSMENT/PLAN Assessment/Plan 1-NSTEMI on heparin for cath in AM 2-acute CHF 3-DM II 4-HTN 5-HLD 6- paroxysmal A Fib converted to sinus spontaneously 7-acute on chronic renal failue agree with holding lasix and spironolactone recheck lab in AM Problems: COMMENT Lab Laboratory Tests Test 01/18/17 17:07 01/18/17 20:35 01/18/17 21:18 01/19/17 02:35 Glucose (Fingerstick) 178 mg/dL (70-99) 170 mg/dL (70-99) Heparin Anti-Xa Act, Unfractionated 0.43 IU/mL (0.30-0.70) 0.43 IU/mL (0.30-0.70) White Blood Count 9.4 x10^3/uL (4.0-11.0) Red Blood Count 4.09 x10^6/uL (3.50-5.40) Hemoglobin 11.9 g/dL (12.0-15.5) Hematocrit 36.0 % (36.0-47.0) Mean Corpuscular Volume 88 fL (79-100) Mean Corpuscular Hemoglobin 29 pg (25-35) Mean Corpuscular Hemoglobin Concent 33 g/dL (31-37) Red Cell Distribution Width 13.8 % (11.5-14.5) Platelet Count 164 x10^3/uL (140-400) Neutrophils (%) (Auto) 73 % (31-73) Lymphocytes (%) (Auto) 18 % (24-48) Monocytes (%) (Auto) 7 % (0-9) Eosinophils (%) (Auto) 2 % (0-3) Basophils (%) (Auto) 1 % (0-3) Neutrophils # (Auto) 6.8 x10^3uL (1.8-7.7) Lymphocytes # (Auto) 1.7 x10^3/uL (1.0-4.8) Monocytes # (Auto) 0.7 x10^3/uL (0.0-1.1) Eosinophils # (Auto) 0.1 x10^3/uL (0.0-0.7) Basophils # (Auto) 0.1 x10^3/uL (0.0-0.2) Sodium Level 141 mmol/L (136-145) Potassium Level 4.1 mmol/L (3.5-5.1) Chloride Level 103 mmol/L (98-107) Carbon Dioxide Level 28 mmol/L (21-32) Anion Gap 10 (6-14) Blood Urea Nitrogen 23 mg/dL (7-20) Creatinine 1.5 mg/dL (0.6-1.0) Estimated GFR (Cockcroft-Gault) 34.4 Glucose Level 150 mg/dL (70-99) Calcium Level 8.7 mg/dL (8.5-10.1) Test 01/19/17 07:45 01/19/17 11:36 Glucose (Fingerstick) 149 mg/dL (70-99) 176 mg/dL (70-99) KLEVER OGDEN MD Jan 19, 2017 12:30
[2017-01-19 16:00] VITALS: BP 125/65
[2017-01-19 18:35] LABS: CALCIUM 8.5 mg/dL (8.5-10.1); CREATININE 1.8 mg/dL (0.6-1.0); GFR 27.9; POTASSIUM 3.8 mmol/L (3.5-5.1)
[2017-01-19 20:00] VITALS: BP 151/70
[2017-01-19] MEDS: ATORVASTATIN CALCIUM 40 MG TABLET. PO SCH (20:31)
[2017-01-19] MEDS: INSULIN DETEMIR 300 UNITS/3 ML INSULN.PEN. SQ SCH (20:32)
[2017-01-19] MEDS: HEPARIN 25,000UTS/500ML PREMIX 500 ML IV PRN (23:55)
[2017-01-20] VITALS (12 sets, daily range): BP systolic 123–157; BP diastolic 53–98
[2017-01-20 06:01] LABS: HEMOGLOBIN 10.3 g/dL (12.0-15.5); RED BLOOD COUNT 3.52 x10^6/uL (3.50-5.40); WHITE BLOOD COUNT 5.3 x10^3/uL (4.0-11.0)
[2017-01-20 06:12] LABS: ALBUMIN 2.9 g/dL (3.4-5.0); ALBUMIN/GLOBULIN RATIO 0.9 (1.0-1.7); CALCIUM 8.7 mg/dL (8.5-10.1); CREATININE 1.3 mg/dL (0.6-1.0); GFR 40.6; TOTAL BILIRUBIN 0.4 mg/dL (0.2-1.0); TOTAL PROTEIN 6.1 g/dL (6.4-8.2)
[2017-01-20] MEDS ORDERED: LIDOCAINE 2% 20 ML VIAL. ONE (07:13)
[2017-01-20] MEDS ORDERED: HEPARIN for ARTERIAL LINE 1,500 ML ONE (07:13)
[2017-01-20] MEDS ORDERED: IODIXANOL 320 MG/ML 100 ML VIAL. ONE ×2 (07:13→08:04)
[2017-01-20] MEDS: INSULIN ASPART 300 UNITS/3 ML INSULN.PEN SQ SCH ×3 (08:00→17:32)
[2017-01-20] MEDS ORDERED: MIDAZOLAM HCL/PF 2 MG/2 ML VIAL. ONE (08:03)
[2017-01-20] MEDS ORDERED: NITROGLYCERIN 200 MCG/2 ML SYRINGE FOR CATH/VASC LAB. ONE (08:03)
[2017-01-20] MEDS ORDERED: VERAPAMIL 5 MG/2 ML VIAL. ONE (08:03)
[2017-01-20] MEDS ORDERED: fentaNYL PF VIAL 100 MCG/2 ML VIAL ONE (08:03)
--- NOTE | 2017-01-20 08:12 | PDOC ---
MODERATE SEDATION ASSESSMENT RISKS/ALTERNATIVES Risks/Alternatives Risks and alternatives of this type of sedation and procedure discussed with: RISK/ALTERNATIVES: Patient H & P ON CHART H & P H & P on chart and reviewed for co-morbid conditions and appropriate labs. H&P ON CHART: Yes STATUS PREG STATUS ASSESSED: N/A MEDS/ALLERGIES REVIEWED Meds/Allergies Reviewed Medications and Allergies including time and route of recently administered narcotics and sedatives. MEDS/ALLERGIES REVIEWED: Yes ASA RATING ASA RATING: II AIRWAY ASSESSMENT Airway Assessment Airway patency, oral function limitations, presence of caps, crowns, dentures, partials, and ability to extend neck assessed. AIRWAY ASSESSMENT: Yes MALLAMPATI SCORE MALLAMPATI SCORE: II PRE-SEDATION ASSESSMENT PRE-SEDATION ASSESSMENT: Yes IOANA QUIROS MD Jan 20, 2017 08:12
[2017-01-20] MEDS: ANTI-COAG MONITOR BY PHARMACY. MC PRN (08:21)
[2017-01-20] MEDS ORDERED: MIDAZOLAM HCL/PF 2 MG/2 ML VIAL. IV ONE (08:30)
[2017-01-20] MEDS ORDERED: fentaNYL PF VIAL 100 MCG/2 ML VIAL IV ONE (08:30)
[2017-01-20] MEDS ORDERED: IODIXANOL 320 MG/ML 100 ML VIAL. IART ONE (08:30)
[2017-01-20] MEDS ORDERED: NITROGLYCERIN 200 MCG/2 ML SYRINGE FOR CATH/VASC LAB. IART ONE (08:30)
[2017-01-20] MEDS ORDERED: HEPARIN for IV BOLUS 10,000 UNIT/10 ML VIAL. IART ONE (08:30)
[2017-01-20] MEDS ORDERED: VERAPAMIL 5 MG/2 ML VIAL. IART ONE (08:30)
[2017-01-20] MEDS ORDERED: CONTRAST GIVEN MC PRN (08:30)
[2017-01-20] MEDS: METOPROLOL TART IMMED RELEASE 25 MG TABLET. PO SCH (09:00)
--- NOTE | 2017-01-20 09:00 | CARD ---
APPROVED REPORT EXAM: Two-dimensional and M-mode echocardiogram with Doppler and color Doppler. Other Information Quality : GoodHR: 67bpm Rhythm : NSR INDICATION Non STEMI 2D DIMENSIONS Left Atrium(2D)4.5 (1.6-4.0cm)IVSd1.0 (0.7-1.1cm) Aortic Root(2D)2.2 (2.0-3.7cm)LVDd4.4 (3.9-5.9cm) LVOT Diameter2.2 (1.8-2.4cm)PWd1.0 (0.7-1.1cm) LA Gourjm30 (18-58mL)LVDs3.2 (2.5-4.0cm) FS (%) 27.0 %SV47.7 ml LVEF(%)53.0 (>50%)CO3.2 L/min M-Mode DIMENSIONS Aortic Cusp Exc1.60 (1.5-2.0cm) Aortic Valve AoV Peak Arthur.110.4cm/sAoV VTI20.2cm AO Peak GR.4.9mmHgLVOT VTI 19.07cm AO Mean GR.2mmHg Mitral Valve MV E Fhgbawqs36.9cm/sMV DECEL [id number] MV A Loicvcws76.7cm/sE/A Ratio2.6 MV A [id number] TDI Lateral E' P. V8.13cm/sMedial E' P. V7.81cm/s E/Lateral E'10.9E/Medial E'11.4 Pulmonary Valve PV Peak Adbiiyrv484.0cm/sPV Peak Grad.4mmHg Tricuspid Valve TR P. Fmlryiqu381fb/sRAP VGWWAYLN1ziKp TR Peak Gr.29moGpABTL99nrIo Pulmonary Vein S1 Xtevopaa16.3cm/sS2 Xswmjicv45.21cm/s D2 Aqefodjy56.2cm/s LEFT VENTRICLE The left ventricle is normal size. There is normal left ventricular wall thickness. The left ventricu lar systolic function is normal and the ejection fraction is within normal range. EF 65%. There is mcintyre btle basal infero-septal hypokinesis. otherwise, grossly normal wall motion. The left ventricular roberto stolic function and filling is normal for age. No left ventricle thrombus noted on this study. There is no ventricular septal defect visualized. There is no left ventricular aneurysm. There is no mass n oted in the left ventricle. RIGHT VENTRICLE The right ventricle is normal size. There is normal right ventricular wall thickness. The right ventr icular systolic function is normal. ATRIA The left atrium is mildly dilated. The right atrium size is normal. The interatrial septum is intact with no evidence for an atrial septal defect or patent foramen ovale as noted on 2-D or Doppler imagi ng. AORTIC VALVE The aortic valve is grossly normal in structure and function. Doppler and Color Flow revealed no sign ificant aortic regurgitation. There is no significant aortic valvular stenosis. There is no aortic va lvular vegetation. MITRAL VALVE The mitral valve is normal in structure and function. There is no evidence of mitral valve prolapse. There is no mitral valve stenosis. Doppler and Color-flow revealed trace mitral regurgitation. TRICUSPID VALVE The tricuspid valve is normal in structure and function. Doppler and Color Flow revealed trace to mil d tricuspid regurgitation. There is no tricuspid valve prolapse or vegetation. There is no tricuspid valve stenosis. PULMONIC VALVE Doppler and Color Flow revealed trace pulmonic valvular regurgitation. There is no pulmonic valvular stenosis. GREAT VESSELS The aortic root is normal in size. The ascending aorta is normal in size. The IVC is normal in size a nd collapses >50% with inspiration. PERICARDIAL EFFUSION There is no pleural effusion. There is no evidence of significant pericardial effusion. Critical Notification Critical Value: No <Conclusion> The left ventricular systolic function is normal and the ejection fraction is within normal range. EF 65%. There is subtle basal infero-septal hypokinesis. otherwise, grossly normal wall motion.
[2017-01-20] MEDS: ASPIRIN CHEWABLE 81 MG TABLET. PO SCH (09:40)
[2017-01-20] MEDS: PANTOPRAZOLE 40 MG TABLET.DR. PO SCH (09:41)
--- NOTE | 2017-01-20 10:12 | PDOC ---
SUBJECTIVE Subjective no chest pain OBJECTIVE Vital Signs Vital Signs Date Time Temp Pulse Resp B/P (MAP) Pulse Ox O2 Delivery O2 Flow Rate FiO2 01/20/17 09:00 59 01/20/17 08:31 22 95 Nasal Cannula 2.0 01/20/17 08:30 61 131/68 01/20/17 08:23 58 14 95 Nasal Cannula 2.0 01/20/17 04:00 96.4 51 15 125/60 (81) 96 Room Air 96.4 01/20/17 00:00 98.2 55 18 137/76 (96) 99 Room Air 98.2 01/19/17 20:32 66 151/70 01/19/17 20:00 98.2 66 25 151/70 (97) 98 Room Air 98.2 01/19/17 20:00 Room Air 01/19/17 16:00 98.4 59 25 125/65 (85) 99 Room Air 98.4 01/19/17 12:00 97.5 54 22 108/63 (78) 98 Room Air 97.5 PHYSICAL EXAM Physical Exam groin ok lungs clear heart RRR abd softand none tender ASSESSMENT/PLAN Assessment/Plan she is on heparin and coumadin for paroxysmal A Fib, home when therapeutic on INR , cath noted continue medical Tx Problems: COMMENT Lab Laboratory Tests Test 01/19/17 11:36 01/19/17 16:59 01/19/17 18:05 01/19/17 20:29 Glucose (Fingerstick) 176 mg/dL (70-99) 135 mg/dL (70-99) 210 mg/dL (70-99) Sodium Level 140 mmol/L (136-145) Potassium Level 3.8 mmol/L (3.5-5.1) Chloride Level 105 mmol/L (98-107) Carbon Dioxide Level 27 mmol/L (21-32) Anion Gap 8 (6-14) Blood Urea Nitrogen 24 mg/dL (7-20) Creatinine 1.8 mg/dL (0.6-1.0) Estimated GFR (Cockcroft-Gault) 27.9 Glucose Level 132 mg/dL (70-99) Calcium Level 8.5 mg/dL (8.5-10.1) Test 01/20/17 05:30 White Blood Count 5.3 x10^3/uL (4.0-11.0) Red Blood Count 3.52 x10^6/uL (3.50-5.40) Hemoglobin 10.3 g/dL (12.0-15.5) Hematocrit 31.0 % (36.0-47.0) Mean Corpuscular Volume 88 fL (79-100) Mean Corpuscular Hemoglobin 29 pg (25-35) Mean Corpuscular Hemoglobin Concent 33 g/dL (31-37) Red Cell Distribution Width 14.0 % (11.5-14.5) Platelet Count 124 x10^3/uL (140-400) Heparin Anti-Xa Act, Unfractionated 0.40 IU/mL (0.30-0.70) Sodium Level 143 mmol/L (136-145) Potassium Level 4.0 mmol/L (3.5-5.1) Chloride Level 107 mmol/L (98-107) Carbon Dioxide Level 27 mmol/L (21-32) Anion Gap 9 (6-14) Blood Urea Nitrogen 23 mg/dL (7-20) Creatinine 1.3 mg/dL (0.6-1.0) Estimated GFR (Cockcroft-Gault) 40.6 BUN/Creatinine Ratio 18 (6-20) Glucose Level 144 mg/dL (70-99) Calcium Level 8.7 mg/dL (8.5-10.1) Total Bilirubin 0.4 mg/dL (0.2-1.0) Aspartate Amino Transf (AST/SGOT) 13 U/L (15-37) Alanine Aminotransferase (ALT/SGPT) 16 U/L (14-59) Alkaline Phosphatase 88 U/L (46-116) Total Protein 6.1 g/dL (6.4-8.2) Albumin 2.9 g/dL (3.4-5.0) Albumin/Globulin Ratio 0.9 (1.0-1.7) KLEVER OGDEN MD Jan 20, 2017 10:12
--- NOTE | 2017-01-20 10:57 | CARD ---
APPROVED REPORT Procedure(s) performed: MODERATE SEDATION: 24 MIN HISTORY The patient is a 71 year-old female with a history of : hypertension, dyslipidemia. INDICATION The indication(s) include : non-STEMI . PROCEDURE NARRATIVE The patient was brought electively to the cardiac catheterization lab. A timeout was performed confi rming the patient's name, date of , procedure, and site of procedure. All necessary personnel w ere wearing the appropriate protective equipment and radiation monitor devices. After explaining the risks and benefits of the procedure and alternatives, informed consent was obtained. (See nursing no esa for medications administered). The right wrist was sterilely prepped and draped in the usual fas hion. The right wrist was infiltrated with 1 mL of 2% lidocaine for subcutaneous anesthesia. A 6 Fr ench Terumo glide sheath was inserted into the right radial artery without difficulty. Right and lef t coronary angiography was performed using a 6Fr TIG 4.0 catheter. Left ventricular end diastolic pr essure was obtained with a TIG catheter and pullback was performed. All catheter exchanges and advan cements were performed over a guidewire. At case completion the right radial sheath was removed and a Terumo radial band was applied with 13 ml of air. The patient tolerated the procedure well and the re were no immediate complications. HEMODYNAMICS: LVEDP 15 mm Hg No gradient on LV to aortic pullback. LEFT VENTRICULOGRAM: Deferred due to renal insufficiency. CORONARY ANGIOGRAPHY: LM is a large caliber vessel with normal angiographic appearance. LAD is a large caliber vessel with mild luminal irregularities. Ramus is a moderate caliber vessel with normal angiographic apeparance. LCx is a moderate to large caliber dominant vessel with normal angiographic appearance. Multiple small to moderate obtuse marginal vessels have mild luminal irregularities. LPDA is a moderate caliber vessel with mild luminal irregularities. RCA is a small caliber non-dominant vessel with an ostial 70% stenosis and dampening of pressure with engagement. Conclusion 1. One vessel coronary artery disease involving a small non-dominant RCA of approximately 2 mm size, not easily amenable to PCI. Recommendations 1. Medical management for now to include ASA, Plavix and Statin therapy. 2. If recurrent pain despite adequate BP control on anti-anginal therapy, will then plan for PCI of t he RCA.
[2017-01-20] MEDS ORDERED: LISINOPRIL 10 MG TABLET PO SCH (11:00)
[2017-01-20] MEDS ORDERED: CLOPIDOGREL BISULFATE 75 MG TABLET PO SCH (12:00)
[2017-01-20] MEDS: SPIRONOLACTONE 25 MG TABLET PO SCH (15:02)
[2017-01-20] MEDS ORDERED: CARVEDILOL 6.25 MG TABLET. PO SCH (17:00)
[2017-01-20] MEDS ORDERED: CLOP75TA PO (17:22)
[2017-01-20] MEDS ORDERED: LEVA (17:52)
[2017-01-20] MEDS ORDERED: INSU100V13 SQ (17:54)
[2017-01-20] MEDS ORDERED: INSU100C4 SQ (17:57)
[2017-01-20] MEDS ORDERED: INSU100I17 SQ (17:57)
[2017-01-20] MEDS ORDERED: INSULIN DETEMIR 300 UNITS/3 ML INSULN.PEN. SQ SCH (21:00)
--- NOTE | 2017-01-21 09:01 | PDOC3 ---
Discharge Summary* Date of Admission: Jan 18, 2017 Date of Discharge: Jan 20, 2017 Admitting Diagnosis Problems Medical Problems: (1) NSTEMI (non-ST elevated myocardial infarction) Status: Acute Problems: Final Diagnosis 1-NSTEMI 2-acute CHF diastolic 3-DM II 4-HTN 5-HLD 6- paroxysmal A Fib converted to sinus spontaneously 7-acute on chronic renal failue improved continue f/u out pt no Metformin for now Problems Medical Problems: (1) NSTEMI (non-ST elevated myocardial infarction) Status: Acute CONSULTS cardiology Procedures CXR, CT chest w contrast, cardiac cath Brief Hospital Course Ms. Murphy is a 71 old [sex] who presented with [ ] Disposition/Orders: D/C to Home CONDITION AT DISCHARGE: Improved Diet: Cardiac, Consistent Carbohydrate Scheduled Aspirin (Aspirin), 1 TAB PO DAILY, (Reported) Atorvastatin Calcium (Atorvastatin Calcium), 1 TAB PO HS, (Reported) Carvedilol (Coreg), 1 TAB PO HS, (Reported) Carvedilol (Carvedilol), 1 TAB PO DAILY, (Reported) Clopidogrel Bisulfate (Clopidogrel), 1 TAB PO DAILY, (Reported) Insulin Detemir (Levemir), 25 UNIT SQ BID, (Reported) Insulin Detemir (Levemir), 25 UNIT SQ BID, (Reported) Lisinopril (Lisinopril), 1 TAB PO DAILY, (Reported) Omeprazole (Omeprazole), 1 CAP PO DAILY, (Reported) Spironolactone (Spironolactone), 1 TAB PO DAILY, (Reported) Miscellaneous Medications Insulin Aspart (Novolog), 100 UNIT SQ, (Reported) Insulin Aspart (Novolog Flexpen), 1 UNIT SQ, (Reported) [leva], (Reported) Discontinued Medications Furosemide (Furosemide), 1 TAB PO 3X/WEEK, (Reported) Furosemide (Furosemide), 1 TAB PO DAILY, (Reported) Glipizide (Glipizide), 1 TAB PO DAILY, (Reported) Glipizide (Glipizide), 1 TAB PO BID, (Reported) Metformin Hcl (Metformin Hcl), 1 TAB PO BID, (Reported) FOLLOW UP APPOINTMENT: hold metformin and glipizide, use levemir 10 units Q HS, bring BS reading to office next week need CMP, on lisinopril only 10 mg and carvidolol 12.5 BID, lipitor 80, plavix and spironolactone 25 Time Spent Total time spent with patient [] minutes for coordination of care, counseling, and education. KLEVER OGDEN MD Jan 21, 2017 09:01
[2017-01-21] MEDS ORDERED: LISI10TA2 PO (09:03)
--- NOTE | 2017-02-21 12:50 | PDOC ---
Provider Note Provider Note Late entry for 01/20/2017 Cardiac rehab discussed with patient. She had an excellent functional capacity and wished to forego rehab. IOANA QUIROS MD Feb 21, 2017 12:50
[2017-02-25] MEDS ORDERED: HYDR12.53 PO (08:36)
[2017-02-25] MEDS ORDERED: HYDR-2868 PO (08:36)
[2017-02-25] MEDS ORDERED: AMLO10TA2 PO (08:36)
== END 2017-01-20 19:06 | disposition home or self-care (01) | DRG 280 ==
LOC: ER 23:18 → 1 WEST ICU 01-18 01:17
PROVIDERS: ADMIT Internal Medicine; ATTEND Internal Medicine
PROC: 4A023N7 Measurement of Cardiac Sampling and Pressure, Left Heart, Percutaneous Approach (ICD-10-PCS; principal; 2017-01-20)
PROC: B2151ZZ Fluoroscopy of Left Heart using Low Osmolar Contrast (ICD-10-PCS; 2017-01-20)
PROC: B2111ZZ Fluoroscopy of Multiple Coronary Arteries using Low Osmolar Contrast (ICD-10-PCS; 2017-01-20)
DX: I21.4 Non-ST elevation (NSTEMI) myocardial infarction (principal); I50.31 Acute diastolic (congestive) heart failure; N17.9 Acute kidney failure, unspecified; E11.22 Type 2 diabetes mellitus with diabetic chronic kidney disease; I48.0 Paroxysmal atrial fibrillation; E78.5 Hyperlipidemia, unspecified; F41.9 Anxiety disorder, unspecified; G62.9 Polyneuropathy, unspecified; I13.0 Hypertensive heart and chronic kidney disease with heart failure and stage 1 through stage 4 chronic kidney disease, or unspecified chronic kidney disease; E78.00 Pure hypercholesterolemia, unspecified; I25.110 Atherosclerotic heart disease of native coronary artery with unstable angina pectoris; K21.9 Gastro-esophageal reflux disease without esophagitis; M19.90 Unspecified osteoarthritis, unspecified site; N18.2 Chronic kidney disease, stage 2 (mild); Z82.49 Family history of ischemic heart disease and other diseases of the circulatory system; Z83.3 Family history of diabetes mellitus; I25.2 Old myocardial infarction; Z86.711 Personal history of pulmonary embolism; Z98.49 Cataract extraction status, unspecified eye; Z87.440 Personal history of urinary (tract) infections; Z90.49 Acquired absence of other specified parts of digestive tract
CPT/HCPCS: 36415; 71010; 71275; 80048; 80053; 82962; 83880; 84484; 85025; 85027; 85520; 87641; 90686; 90732; 93005; 93306; 93458; 96374; 96375; 99152; 99153; C1769; C1892; J1644; J1815; J1940; J2250; J3010; J3490; J7030; J7040; Q9967; 99291-25

== ENCOUNTER 2017-01-25 23:34 | Inpatient (IN) | payer MEDICARE, OTHER ==
[~2017-01-25] VITALS: Ht 165.1 cm; Wt 88.0 kg
[~2017-01-25 23:34] MED LIST changes: +CARV25TA2 PO; +CLOP75TA PO; +FURO40TA4 PO; +INSU100C4 SQ; +INSU100I17 SQ; +INSU100V13 SQ; +LEVA; +LISI10TA2 PO
[2017-01-26] VITALS (10 sets, daily range): BP systolic 112–193; BP diastolic 55–88
--- NOTE | 2017-01-26 00:27 | PHYS DOC ---
Past Medical History Past Medical History: Diabetes-Type II, DVT, Hypertension, CO Past Surgical History: Cholecystectomy, Other Additional Past Surgical Histo: CATARACT, Alcohol Use: None Drug Use: None Adult General Chief Complaint Chief Complaint: SHORTNESS OF BREATH HPI HPI Patient is a 71 year old female who presents with complaint of shortness of breath. Patient symptoms started worsening approximately 1 hour prior to arrival. The patient was recently admitted the hospital for treatment of NSTEMI on January 18, 2017. Patient underwent cardiac catheterization by Dr. Soriano which showed a distal small vessel stenosis that did not require stenting at that time. Patient also treated for atrial fibrillation and congestive heart failure. Patient states that she was initially doing well, however over the past 24 hours she has noticed shortness of breath which acutely worsened earlier this evening. Patient denies any fevers. Patient states that she is having dyspnea on exertion and has also noticed swelling in her lower extremities. Patient denies any nausea, vomiting, or chest pain currently. Review of Systems Review of Systems Constitutional: Denies fever or chills [] Eyes: Denies change in visual acuity, redness, or eye pain [] HENT: Denies nasal congestion or sore throat [] Respiratory: Shortness of breath[] Cardiovascular: Edema, dyspnea on exertion, denies chest pain[] GI: Denies abdominal pain, nausea, vomiting, bloody stools or diarrhea [] : Denies dysuria or hematuria [] Musculoskeletal: Denies back pain or joint pain [] Integument: Denies rash or skin lesions [] Neurologic: Denies headache, focal weakness or sensory changes [] Current Medications Current Medications Allergies Allergies Allergies Coded Allergies Type Severity Reaction Last Updated Verified No Known Drug Allergies 08/01/16 No Physical Exam Physical Exam Constitutional: Alert, afebrile, appears in mild respiratory distress[] HENT: Normocephalic, atraumatic, bilateral external ears normal, oropharynx moist, no oral exudates, nose normal. [] Eyes: PERRLA, EOMI, conjunctiva normal, no discharge. [] Neck: Normal range of motion, no tenderness, supple, no stridor. [] Cardiovascular:Heart rate regular rhythm, no murmur [] Lungs & Thorax: Mildly restricted air movement bilaterally, rales in bilateral lung bases, no wheezes[] Abdomen: Bowel sounds normal, soft, no tenderness, no masses, no pulsatile masses. [] Skin: Warm, dry, no erythema, no rash. [] Back: No tenderness, no CVA tenderness. [] Extremities: No tenderness, no cyanosis, no clubbing, ROM intact, 1+ pitting edema in the bilateral lower extremities. [] Neurologic: Alert and oriented X 3, normal motor function, normal sensory function, no focal deficits noted. [] Current Patient Data Vital Signs Vital Signs Date Time Temp Pulse Resp B/P (MAP) Pulse Ox O2 Delivery O2 Flow Rate FiO2 01/25/17 23:50 97.2 69 29 223/93 (136) 93 Room Air 97.2 EKG EKG Interpreted by me: Sinus rhythm, normal intervals, normal axis, no acute ST/T- wave abnormalities present[] Radiology/Procedures Radiology/Procedures One view AP chest x-ray interpreted by me: Interval worsening of pulmonary vascular congestion and pulmonary edema compared to previous chest x-ray, no mediastinal widening, no pneumothorax[] Course & Med Decision Making Course & Med Decision Making Pertinent Labs and Imaging studies reviewed. (See chart for details) Patient's chest x-ray shows interval worsening of pulmonary edema compared to previous chest x-ray. The patient's symptoms appear to be an acute exacerbation of congestive heart failure. Patient given IV Lasix in the emergency department. Patient's troponin level has decreased significantly from her previous approximately one week ago. We will continue to monitor her troponin levels to ensure that they are not trending upward while in the hospital. Patient admitted to Dr. Jacobs. A consult was placed to Dr. Soriano of cardiology to follow patient in hospital. Dragon Disclaimer Dragon Disclaimer This electronic medical record was generated, in whole or in part, using a voice recognition dictation system. Departure Departure Impression: Primary Impression: Acute congestive heart failure Additional Impression: Hypertension Disposition: 09 ADMITTED INPATIENT Admitting Physician: Deng Jacobs Condition: GUARDED Referrals: ELIZABETH NELSON MD (PCP) Problem Qualifiers Primary Impression: Acute congestive heart failure Congestive heart failure type: diastolic Qualified Codes: I50.31 - Acute diastolic (congestive) heart failure Additional Impression: Hypertension Hypertension type: essential hypertension Qualified Codes: I10 - Essential ( primary) hypertension CLIFF REY MD Jan 26, 2017 00:27
[2017-01-26] MEDS ORDERED: FUROSEMIDE 40 MG/4 ML VIAL. IVP ONE (00:30)
[2017-01-26 00:55] LABS: BASO # 0.1 x10^3/uL (0.0-0.2); BASO % 1 % (0-3); EOS % 3 % (0-3); HEMATOCRIT 36.9 % (36.0-47.0); LYMPH # 1.2 x10^3/uL (1.0-4.8); LYMPH % 14 % (24-48); MEAN CORPUSCULAR HEMOGLOBIN 29 pg (25-35); MEAN CORPUSCULAR HGB CONC 33 g/dL (31-37); MEAN CORPUSCULAR VOLUME 88 fL (79-100); MONO % 7 % (0-9); NEUT % 75 % (31-73); PLATELET COUNT 183 x10^3/uL (140-400); RED BLOOD COUNT 4.17 x10^6/uL (3.50-5.40); RED CELL DISTRIBUTION WIDTH 13.7 % (11.5-14.5); WHITE BLOOD COUNT 8.2 x10^3/uL (4.0-11.0)
[2017-01-26 01:07] LABS: CALCIUM 8.9 mg/dL (8.5-10.1); CREATININE 1.3 mg/dL (0.6-1.0); GFR 40.6; POTASSIUM 4.4 mmol/L (3.5-5.1)
[2017-01-26 01:13] LABS: ALBUMIN 3.4 g/dL (3.4-5.0); TOTAL BILIRUBIN 0.5 mg/dL (0.2-1.0); TOTAL PROTEIN 6.7 g/dL (6.4-8.2)
[2017-01-26] MEDS ORDERED: ACETAMINOPHEN 325 MG TABLET. PO PRN (01:15)
[2017-01-26] MEDS ORDERED: ONDANSETRON PF 4 MG/2 ML VIAL. IV PRN (01:15)
[2017-01-26 01:22] LABS: CKMB MASS 0.8 ng/mL (0.0-3.6)
[2017-01-26] MEDS ORDERED: hydrALAZINE 20 MG/ML VIAL. IVP PRN (01:30)
[2017-01-26] MEDS ORDERED: ASPI-482 PO (02:57)
[2017-01-26] MEDS ORDERED: LISI40TA PO (03:08)
[2017-01-26] MEDS ORDERED: CARV25TA PO (03:47)
[2017-01-26] MEDS ORDERED: CARVEDILOL 12.5 MG TABLET. PO ONE (04:00)
[2017-01-26] MEDS ORDERED: hydrALAZINE 20 MG/ML VIAL. IVP ONE (04:00)
[2017-01-26] MEDS ORDERED: NITROGLYCERIN SUBLINGUAL 0.4 MG BOTTLE OF 25. SL PRN (06:45)
--- NOTE | 2017-01-26 07:35 | PDOC ---
CARDIOLOGY PROGRESS NOTE SUBJECTIVE: Please see consultation note from last week for full details. 71 y.o woman known to us from last visit presented with recurrent shortness of air. She had high BP at last visit, underwent cath and noted to have had small vessel disease in a non-dominant RCA, not amenable to PCI and normal LV function with excellent dominant LCx and LAD She was treated for BP and discharged. Went home and ate multiple frozen dinners , felt like fluid came back and then presented to the ER in hypertensive urgency Denies any palpitations. No syncope. reports mild LE edema. OBJECTIVE: Vital SIgns: Vital Signs Date Time Temp Pulse Resp B/P (MAP) Pulse Ox O2 Delivery O2 Flow Rate FiO2 01/26/17 07:10 62 131/61 (84) 01/26/17 03:22 Room Air 01/26/17 03:00 97.8 18 98 97.8 Objective: GEN.: No apparent distress. Alert and oriented. HEENT: Head is normocephalic, atraumatic NECK: Supple. LUNGS: Clear to auscultation. HEART: RRR, S1, S2 present. Peripheral pulses intact ABDOMEN: Soft, nontender. Positive bowel sounds. EXTREMITIES: Without any cyanosis. Bilateral chronic venous insufficiency. NEUROLOGIC: Normal speech, normal tone PSYCHIATRIC: Normal affect, normal mood. SKIN: No ulcerations CURRENT MEDICATIONS: Current Medications Medications (Trade) Dose Ordered Sig/Radha Start Time Stop Time Status Last Admin Dose Admin Acetaminophen (Tylenol) 650 mg PRN Q4HRS PRN 01/26/17 01:15 01/27/17 01:14 01/26/17 04:13 650 MG Carvedilol (Coreg) 25 mg 1X ONCE 01/26/17 04:00 01/26/17 04:01 DC 01/26/17 04:04 25 MG Furosemide (Lasix) 40 mg 1X ONCE 01/26/17 00:30 01/26/17 00:31 DC 01/26/17 00:50 40 MG Hydralazine HCl (Apresoline) 10 mg 1X ONCE 01/26/17 04:00 01/26/17 04:01 DC 01/26/17 04:04 10 MG Isosorbide Mononitrate (Imdur) 30 mg DAILY 01/26/17 09:00 Nitroglycerin (Nitrostat) 0.4 mg PRN Q5MIN PRN 01/26/17 06:45 01/26/17 06:41 0.4 MG Ondansetron HCl (Zofran) 4 mg PRN Q8HRS PRN 01/26/17 01:15 01/27/17 01:14 DIAGNOSTIC TESTING: EKG : SR. No ST/T changes. ASSESSMENT: 1. Hypertensive urgency 2. Small vessel coronary disease 3. Anxiety Problems: PLAN: 1. I have asked patient to have her family bring in her pill bottles to determine what she has exactly been taking at home. 2. Check renal artery duplex 3. Low yield for repeat cath, elevated troponin due to BP 4. Supportive care for now. Consider imdur or renexa for chest pain, possible coronary spasm in the setting of high bp. Will follow. Thanks. IOANA QUIROS MD Jan 26, 2017 07:35
--- NOTE | 2017-01-26 07:57 | RAD ---
Portable chest, 01/25/2017: History: Shortness of breath Comparison is made to a study from 01/18/2017. The heart is at the upper limits of normal in size. The pulmonary vascularity is congested with loss of vascular margination. There are worsening interstitial and hazy airspace opacities suggesting pulmonary edema. No definite pleural fluid is seen on this AP view. IMPRESSION: Worsening pulmonary infiltrates most compatible with pulmonary edema.
[2017-01-26] MEDS: ISOSORBIDE MONONITRATE ER 30 MG TAB.ER.24H PO SCH (09:06)
--- NOTE | 2017-01-26 12:27 | EKG ---
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
--- NOTE | 2017-01-26 12:35 | RAD ---
APPROVED REPORT Patient Location: IN-PATIENT Indications HTN Renal Artery Doppler Right Renal Artery Left Renal Arter y Proximal 100.0/18.0 cm/secProximal 54.0/14.0 cm/sec Mid 109.0/19.0 cm/secMid 70.0/18.0 cm/sec Distal 100.0/19.0 cm/secDistal 89.0/19.0 cm/sec Renal/Aorta Ratio 0.86Renal/Aorta Ratio 0.70 Prox. Resistive Index 0.82Prox. Resistive Index 0.75 Mid Resistive Index 0.83Mid Resistive Index 0.74 Distal Resistive Index 0.81Distal Resistive Index 0.78 Rt. Segmental A. 37.0/10.0 cm/secLt. Segmental A. 25.0/7.0 cm/sec Renal Measurements RightLeft Kidney Zjpigb20.2 cm cmKidney Gjayow09.1 cm cm Right Additional FindingsLeft Additional Findings Findings No significant renal artery stenosis. Critical Notification Critical Value: No <Conclusion> No significant renal artery stenosis.
[2017-01-26] MEDS ORDERED: CARV12.5 PO (15:47)
--- NOTE | 2017-01-26 17:31 | PDOC ---
GENERAL General: see dictated H&P. Problems: VITAL SIGNS Vital Signs: Vital Signs Date Time Temp Pulse Resp B/P (MAP) Pulse Ox O2 Delivery O2 Flow Rate FiO2 01/26/17 14:33 97.6 63 16 126/61 (82) 97 Room Air 97.6 I & O I & O Intake and Output 01/27/17 07:00 Intake Total 120 ml Output Total 450 ml Balance -330 ml Intake Oral 120 ml Output Urine Total 450 ml ALLERGIES Allergies: Allergies Coded Allergies Type Severity Reaction Last Updated Verified liraglutide Allergy Intermediate Nausea and Vomiting 01/26/17 Yes MEDS Medications: Current Medications Medications (Trade) Dose Ordered Sig/Radha Start Time Stop Time Status Last Admin Dose Admin Acetaminophen (Tylenol) 650 mg PRN Q4HRS PRN 01/26/17 01:15 01/27/17 01:14 01/26/17 04:13 650 MG Carvedilol (Coreg) 25 mg 1X ONCE 01/26/17 04:00 01/26/17 04:01 DC 01/26/17 04:04 25 MG Furosemide (Lasix) 40 mg 1X ONCE 01/26/17 00:30 01/26/17 00:31 DC 01/26/17 00:50 40 MG Hydralazine HCl (Apresoline) 10 mg 1X ONCE 01/26/17 04:00 01/26/17 04:01 DC 01/26/17 04:04 10 MG Isosorbide Mononitrate (Imdur) 30 mg DAILY 01/26/17 09:00 01/26/17 09:06 30 MG Nitroglycerin (Nitrostat) 0.4 mg PRN Q5MIN PRN 01/26/17 06:45 01/26/17 06:41 0.4 MG Ondansetron HCl (Zofran) 4 mg PRN Q8HRS PRN 01/26/17 01:15 01/27/17 01:14 LAB Lab: Laboratory Tests Test 01/26/17 00:45 01/26/17 07:00 01/26/17 08:55 01/26/17 16:47 White Blood Count 8.2 x10^3/uL (4.0-11.0) Red Blood Count 4.17 x10^6/uL (3.50-5.40) Hemoglobin 12.0 g/dL (12.0-15.5) Hematocrit 36.9 % (36.0-47.0) Mean Corpuscular Volume 88 fL (79-100) Mean Corpuscular Hemoglobin 29 pg (25-35) Mean Corpuscular Hemoglobin Concent 33 g/dL (31-37) Red Cell Distribution Width 13.7 % (11.5-14.5) Platelet Count 183 x10^3/uL (140-400) Neutrophils (%) (Auto) 75 % (31-73) Lymphocytes (%) (Auto) 14 % (24-48) Monocytes (%) (Auto) 7 % (0-9) Eosinophils (%) (Auto) 3 % (0-3) Basophils (%) (Auto) 1 % (0-3) Neutrophils # (Auto) 6.1 x10^3uL (1.8-7.7) Lymphocytes # (Auto) 1.2 x10^3/uL (1.0-4.8) Monocytes # (Auto) 0.6 x10^3/uL (0.0-1.1) Eosinophils # (Auto) 0.2 x10^3/uL (0.0-0.7) Basophils # (Auto) 0.1 x10^3/uL (0.0-0.2) Sodium Level 143 mmol/L (136-145) Potassium Level 4.4 mmol/L (3.5-5.1) Chloride Level 107 mmol/L (98-107) Carbon Dioxide Level 25 mmol/L (21-32) Anion Gap 11 (6-14) Blood Urea Nitrogen 20 mg/dL (7-20) Creatinine 1.3 mg/dL (0.6-1.0) Estimated GFR (Cockcroft-Gault) 40.6 BUN/Creatinine Ratio 15 (6-20) Glucose Level 197 mg/dL (70-99) Calcium Level 8.9 mg/dL (8.5-10.1) Total Bilirubin 0.5 mg/dL (0.2-1.0) Aspartate Amino Transf (AST/SGOT) 14 U/L (15-37) Alanine Aminotransferase (ALT/SGPT) 21 U/L (14-59) Alkaline Phosphatase 127 U/L (46-116) Creatine Kinase 56 U/L (26-192) Creatine Kinase MB (Mass) 0.8 ng/mL (0.0-3.6) Creatine Kinase MB Relative Index 1.4 % (0-4) Troponin I Quantitative 0.073 ng/mL (0.000-0.055) 0.100 ng/mL (0.000-0.055) RD-Vmc-D-Type Natriuretic Peptide 3986 pg/mL (0-124) Total Protein 6.7 g/dL (6.4-8.2) Albumin 3.4 g/dL (3.4-5.0) Albumin/Globulin Ratio 1.0 (1.0-1.7) Glucose (Fingerstick) 136 mg/dL (70-99) 180 mg/dL (70-99) STACI LÓPEZ MD Jan 26, 2017 17:31
[2017-01-26] MEDS ORDERED: CLOPIDOGREL BISULFATE 75 MG TABLET PO SCH (18:00)
[2017-01-26] MEDS ORDERED: LISINOPRIL 40 MG TABLET. PO SCH (18:00)
[2017-01-26] MEDS ORDERED: ASPIRIN ENTERIC COATED 81 MG TABLET.DR. PO SCH (18:00)
[2017-01-26] MEDS ORDERED: PANTOPRAZOLE 40 MG TABLET.DR. PO SCH (18:00)
--- NOTE | 2017-01-26 18:12 | HP ---
ADMIT DATE: CHIEF COMPLAINT AND HISTORY OF PRESENT ILLNESS: This 71-year-old white female patient of Dr. Jacobs, presented to the Emergency Room with shortness of breath. On the day of admission, she stated symptoms had started and they got progressively worse over the hour or so prior to admission. She had been recently admitted at the end of December for non-ST elevation myocardial infarction and underwent cardiac catheterization that showed some distal right coronary artery disease not requiring any stenting at that time. She was found to have a normal circ and LAD which were dominant vessels. She was also treated at that point in time for some atrial fibrillation as well as congestive heart failure. The patient was found to have congestive heart failure on admission and admitted through the Emergency Room for the same. PAST MEDICAL HISTORY: Remarkable for type 2 diabetes, hypertension, DVT, Mi, atrial fibrillation. PAST SURGICAL HISTORY: Remarkable for cholecystectomy and cataract removal. MEDICATIONS: Brought with the patient, listed on the computer and have been addressed. ALLERGIES: Include LIRAGLUTIDE. SOCIAL HISTORY: She is and does not abuse alcohol or drugs. FAMILY HISTORY: Noncontributory. REVIEW OF SYSTEMS: Remarkable for the shortness of breath with exertion as well as . She denies any chest pain, diaphoresis, dizziness, nausea, vomiting, abdominal pain, etc., with this. PHYSICAL EXAMINATION: GENERAL: She is well-developed, well-nourished white female, breathing much better by the time of my examination and she has diuresed well. VITAL SIGNS: Remarkable for accelerated hypertension on admission, better at this point in time. HEAD, EYES, EARS, NOSE AND THROAT: Unremarkable. NECK: Supple without bruit, thyromegaly. CHEST: Clear to auscultation and percussion. HEART: Regular rate and rhythm without S3, S4, or murmur. ABDOMEN: Soft, nontender, without hepatosplenomegaly or masses. EXTREMITIES: Without cyanosis, clubbing or significant edema. NEUROLOGIC: She is intact. IMPRESSION: Congestive heart failure, likely related to accelerated hypertension with mild elevated troponin. PLAN: The patient has been admitted. Cardiology has been consulted. Diuresis would be ongoing. Renal artery ultrasound has been ordered for the hypertension and the patient will be monitored, managed and treated appropriately. STACI LÓPEZ MD DR: Nickie JOB#: [id number] / [id number]
[2017-01-26] MEDS: LISINOPRIL 40 MG TABLET. PO SCH (20:39)
[2017-01-26] MEDS: PANTOPRAZOLE 40 MG TABLET.DR. PO SCH (20:40)
[2017-01-26] MEDS: ASPIRIN ENTERIC COATED 81 MG TABLET.DR. PO SCH (20:40)
[2017-01-26] MEDS: CLOPIDOGREL BISULFATE 75 MG TABLET PO SCH (20:40)
[2017-01-26] MEDS: INSULIN DETEMIR 300 UNITS/3 ML INSULN.PEN. SQ SCH (20:43)
[2017-01-26] MEDS ORDERED: ATORVASTATIN CALCIUM 40 MG TABLET. PO SCH (21:00)
[2017-01-27 03:25] VITALS: BP 132/67
[2017-01-27 04:44] LABS: BASO # 0.1 x10^3/uL (0.0-0.2); BASO % 1 % (0-3); EOS % 3 % (0-3); HEMATOCRIT 31.3 % (36.0-47.0); HEMOGLOBIN 10.5 g/dL (12.0-15.5); LYMPH # 1.3 x10^3/uL (1.0-4.8); LYMPH % 27 % (24-48); MEAN CORPUSCULAR HEMOGLOBIN 29 pg (25-35); MEAN CORPUSCULAR HGB CONC 34 g/dL (31-37); MEAN CORPUSCULAR VOLUME 87 fL (79-100); MONO % 12 % (0-9); NEUT % 57 % (31-73); PLATELET COUNT 171 x10^3/uL (140-400); RED BLOOD COUNT 3.61 x10^6/uL (3.50-5.40); RED CELL DISTRIBUTION WIDTH 13.8 % (11.5-14.5); WHITE BLOOD COUNT 4.9 x10^3/uL (4.0-11.0)
[2017-01-27 05:14] LABS: CALCIUM 8.7 mg/dL (8.5-10.1); CREATININE 1.2 mg/dL (0.6-1.0); GFR 44.5; POTASSIUM 3.6 mmol/L (3.5-5.1)
[2017-01-27 07:00] VITALS: BP 156/75
[2017-01-27] MEDS: PANTOPRAZOLE 40 MG TABLET.DR. PO SCH (08:51)
[2017-01-27] MEDS: ISOSORBIDE MONONITRATE ER 30 MG TAB.ER.24H PO SCH (08:54)
[2017-01-27] MEDS: ASPIRIN ENTERIC COATED 81 MG TABLET.DR. PO SCH (08:54)
[2017-01-27] MEDS: CLOPIDOGREL BISULFATE 75 MG TABLET PO SCH (08:54)
[2017-01-27] MEDS: LISINOPRIL 40 MG TABLET. PO SCH (08:54)
[2017-01-27] MEDS ORDERED: SPIRONOLACTONE 25 MG TABLET PO SCH (09:00)
[2017-01-27] MEDS: INSULIN DETEMIR 300 UNITS/3 ML INSULN.PEN. SQ SCH (09:04)
[2017-01-27 11:00] VITALS: BP 147/68
[2017-01-27] MEDS ORDERED: ISOS30TA4 PO (11:54)
--- NOTE | 2017-01-27 12:02 | PDOC ---
SUBJECTIVE Subjective feels better , no further CP or SOB, improved Bp OBJECTIVE Vital Signs Vital Signs Date Time Temp Pulse Resp B/P (MAP) Pulse Ox O2 Delivery O2 Flow Rate FiO2 01/27/17 11:00 97.5 63 18 147/68 (94) 94 Room Air 97.5 01/27/17 08:54 59 167/77 01/27/17 08:54 56 167/77 01/27/17 08:00 Room Air 01/27/17 07:00 97.3 60 18 156/75 (102) 96 Room Air 97.3 01/27/17 03:25 97.4 56 18 132/67 (88) 95 Room Air 97.4 01/26/17 23:20 98.5 62 18 125/61 (82) 95 Room Air 98.5 01/26/17 20:39 66 133/61 01/26/17 19:55 Room Air 01/26/17 19:40 98.1 66 18 133/61 (85) 95 Room Air 98.1 01/26/17 14:33 97.6 63 16 126/61 (82) 97 Room Air 97.6 PHYSICAL EXAM Physical Exam lungs clear heart RRR abd soft ext no edema ASSESSMENT/PLAN Assessment/Plan renal doppler negative, discussed with Dr. Dillon, diastolic CHF due to accelerated HTN with coronary spasm, added Imdur , home today and F/U out pt Problems: COMMENT Lab Laboratory Tests Test 01/26/17 16:47 01/26/17 20:39 01/27/17 04:25 01/27/17 07:55 Glucose (Fingerstick) 180 mg/dL (70-99) 270 mg/dL (70-99) 127 mg/dL (70-99) White Blood Count 4.9 x10^3/uL (4.0-11.0) Red Blood Count 3.61 x10^6/uL (3.50-5.40) Hemoglobin 10.5 g/dL (12.0-15.5) Hematocrit 31.3 % (36.0-47.0) Mean Corpuscular Volume 87 fL (79-100) Mean Corpuscular Hemoglobin 29 pg (25-35) Mean Corpuscular Hemoglobin Concent 34 g/dL (31-37) Red Cell Distribution Width 13.8 % (11.5-14.5) Platelet Count 171 x10^3/uL (140-400) Neutrophils (%) (Auto) 57 % (31-73) Lymphocytes (%) (Auto) 27 % (24-48) Monocytes (%) (Auto) 12 % (0-9) Eosinophils (%) (Auto) 3 % (0-3) Basophils (%) (Auto) 1 % (0-3) Neutrophils # (Auto) 2.8 x10^3uL (1.8-7.7) Lymphocytes # (Auto) 1.3 x10^3/uL (1.0-4.8) Monocytes # (Auto) 0.6 x10^3/uL (0.0-1.1) Eosinophils # (Auto) 0.2 x10^3/uL (0.0-0.7) Basophils # (Auto) 0.1 x10^3/uL (0.0-0.2) Sodium Level 143 mmol/L (136-145) Potassium Level 3.6 mmol/L (3.5-5.1) Chloride Level 108 mmol/L (98-107) Carbon Dioxide Level 28 mmol/L (21-32) Anion Gap 7 (6-14) Blood Urea Nitrogen 21 mg/dL (7-20) Creatinine 1.2 mg/dL (0.6-1.0) Estimated GFR (Cockcroft-Gault) 44.5 Glucose Level 119 mg/dL (70-99) Calcium Level 8.7 mg/dL (8.5-10.1) Test 01/27/17 10:44 Glucose (Fingerstick) 264 mg/dL (70-99) KLEVER OGDEN MD Jan 27, 2017 12:02
--- NOTE | 2017-01-27 12:08 | PDOC3 ---
Discharge Summary* Date of Admission: Jan 25, 2017 Date of Discharge: Jan 27, 2017 Admitting Diagnosis Problems Medical Problems: (1) Acute congestive heart failure Status: Acute (2) Hypertension Status: Acute Problems: Final Diagnosis 1-small vessel coronary artery disease with coronary spasm due to accelerated HTN 2-acute on chronic diastolic CHF 3-DM II 4-accelerated HTN 5-HLD 6- paroxysmal A Fib converted to sinus spontaneously previous admit none this admission 7-acute on chronic renal failue improved continue f/u out pt no Metformin for now on levemir Problems Medical Problems: (1) Acute congestive heart failure Status: Acute (2) Hypertension Status: Acute CONSULTS cardiology Procedures CXR, renal doppler US negative Brief Hospital Course Ms. Murphy is a 71 old [sex] who presented with [ ] Disposition/Orders: D/C to Home CONDITION AT DISCHARGE: Improved Diet: Cardiac, Consistent Carbohydrate Scheduled Aspirin (Aspir 81), 1 TAB PO DAILY, (Reported) Atorvastatin Calcium (Atorvastatin Calcium), 1 TAB PO HS, (Reported) Carvedilol (Coreg), 1 TAB PO DAILY, (Reported) Carvedilol (Coreg), 12.5 MG PO DAILYWSUP, (Reported) Clopidogrel Bisulfate (Clopidogrel), 1 TAB PO DAILY, (Reported) Insulin Detemir (Levemir), 10 UNIT SQ BID, (Reported) Lisinopril (Lisinopril), 1 TAB PO DAILY, (Reported) Omeprazole (Omeprazole), 1 CAP PO DAILY, (Reported) Spironolactone (Spironolactone), 1 TAB PO DAILY, (Reported) Miscellaneous Medications [leva], (Reported) Discontinued Medications Aspirin (Aspirin), 1 TAB PO DAILY, (Reported) Carvedilol (Coreg), 1 TAB PO HS, (Reported) Carvedilol (Carvedilol), 1 TAB PO DAILY, (Reported) Furosemide (Furosemide), 1 TAB PO DAILY, (Reported) Glipizide (Glipizide), 1 TAB PO BID, (Reported) Insulin Aspart (Novolog), 100 UNIT SQ, (Reported) Insulin Aspart (Novolog Flexpen), 1 UNIT SQ, (Reported) Insulin Detemir (Levemir), 25 UNIT SQ BID, (Reported) Lisinopril (Lisinopril), 1 TAB PO DAILY, (Reported) Metformin Hcl (Metformin Hcl), 1 TAB PO BID, (Reported) FOLLOW UP APPOINTMENT: DR. Vera 1 week Imdur has been added, continue coreg and lisinopril, spironolactone, amlodipine, bring BS readings to office currently on levemir 10 units SQ BID Time Spent Total time spent with patient [] minutes for coordination of care, counseling, and education. KLEVER OGDEN MD Jan 27, 2017 12:08
[2017-01-27] MEDS ORDERED: CARVEDILOL 12.5 MG TABLET. PO SCH (17:00)
[2017-02-25] MEDS ORDERED: HYDR-2868 PO (08:36)
[2017-02-25] MEDS ORDERED: AMLO10TA2 PO (08:36)
[2017-02-25] MEDS ORDERED: HYDR12.53 PO (08:36)
== END 2017-01-27 13:00 | disposition home or self-care (01) | DRG 682 ==
LOC: ER 23:34 → 2 SOUTH 01-26 00:11
PROVIDERS: ADMIT Internal Medicine; ATTEND Internal Medicine
DX: N17.9 Acute kidney failure, unspecified (principal); I50.33 Acute on chronic diastolic (congestive) heart failure; I13.0 Hypertensive heart and chronic kidney disease with heart failure and stage 1 through stage 4 chronic kidney disease, or unspecified chronic kidney disease; I48.91 Unspecified atrial fibrillation; I73.9 Peripheral vascular disease, unspecified; I16.0 Hypertensive urgency; I25.10 Atherosclerotic heart disease of native coronary artery without angina pectoris; E11.9 Type 2 diabetes mellitus without complications; E78.5 Hyperlipidemia, unspecified; F41.9 Anxiety disorder, unspecified; I25.2 Old myocardial infarction; Z98.49 Cataract extraction status, unspecified eye; Z90.49 Acquired absence of other specified parts of digestive tract; Z88.8 Allergy status to other drugs, medicaments and biological substances; N18.9 Chronic kidney disease, unspecified
CPT/HCPCS: 36415; 71010; 76770; 80048; 80053; 82553; 82962; 83880; 84484; 85025; 93005; 96374; 96375; J0360; J1815; J1940; 99285-25

== ENCOUNTER → 2017-03-18 | Outpatient (CLI) | payer MEDICARE, OTHER ==
[2017-02-25 11:00] VITALS: BP 162/76
[~2017-03-18] MED LIST changes: +AMLO10TA2 PO; +ASPI-482 PO; +CARV25TA PO; +HYDR-2868 PO; +HYDR12.53 PO; +ISOS30TA4 PO
--- NOTE | 2017-03-18 14:26 | RAD ---
APPROVED REPORT Patient Location : OUT-PATIENT Indications Lower Extremity Edema : Bilateral Risk Factors Obesity Past History Compression Stockings : Yes Medications Plavix Lesser Saphenous Veins (LSV) Right Thigh extension noted : No Leftt Thigh extension noted : No Right Giacomini Vein : Present : No Reflux : No Leftt Giacomini Vein : Present : No Reflux : No Accessory Veins Right Anterior Accessory Vein : Present : Yes Reflux : No Leftt Anterior Accessory Vein : Present : Yes Reflux : No Right Posterior Accessory Vein : Present : No Reflux : No Left Posterior Accessory Vein : Present : No Reflux : No Findings Grayscale images of the bilateral greater and lesser saphenous veins were obtained and the right grea t saphenous vein in the proximal segment reveals some fibrinous strands and upon compression there is echogenic material in the vein suggestive of chronic thrombus. The lip the thrombus slightly abuts i nto the common femoral vein. There is excellent flow without any obstruction area On color Doppler and spectral images there is significant reflux in the right great saphenous vein ex tending from the proximal segment of the below calf level with a reflux time of approximately 2.5 sec onds. The right lesser saphenous vein does not show any evidence of reflux and is free of thrombus. The left great saphenous vein is compressible and does not show any evidence of thrombus. There is re flux noted in the proximal great saphenous vein and a proximally 2 seconds. The bilateral lesser saphenous veins do not show any evidence of reflux. Critical Notification Critical Value: No <Conclusion> 1. Incidental finding of a right proximal great saphenous vein DVT with minimal extension into the co mmon femoral vein. 2. Positive for reflux in the right and left great saphenous veins.
--- NOTE | 2017-03-19 06:30 | RAD ---
APPROVED REPORT Bilateral Lower Extremity Venous Study for DVT Patient Location: OUT-PATIENT Indications Lower Extremity Edema: Bilateral Findings The bilateral lower extremity deep veins were evaluated for thrombus with color Doppler, spectral and grayscale images. On the right the grayscale images of the common femoral, superficial femoral and popliteal veins do n ot demonstrate any evidence of thrombus and these veins appear to be compressible. The below-knee vei ns were not well visualized but grossly appear to be compressible. Spectral imaging and color Doppler do not reveal any evidence of obstruction to flow with normal respirophasic variation above the knee . Below the knee there is spontaneous flow noted. On the left, the grayscale images of the common femoral, superficial femoral and popliteal veins do n ot demonstrate any evidence of thrombus and these veins appear to be compressible. The below-knee vei ns again were not well visualized but grossly appear to be compressible. Spectral imaging and color D oppler do not reveal any evidence of obstruction to flow with normal respirophasic variation above th e knee. The below-knee veins demonstrate spontaneous flow. Incidental finding of a right great saphenous vein thrombus with minimal extension into the common fe moral vein. The patient does not have any history of recent venous intervention or trauma but has bee n hospitalized. Critical Notification Critical Value: No <Conclusion> 1. No evidence of deep vein thrombosis in the bilateral lower extremities. 2. Incidental finding of a right great saphenous vein thrombus, likely chronic in appearance with min imal extension to the common femoral vein.
== END | disposition home or self-care (01) ==
LOC: US 08:42
PROVIDERS: ATTEND Internal Medicine Cardiovascular Disease
DX: K21.9 Gastro-esophageal reflux disease without esophagitis (principal); E66.9 Obesity, unspecified; R60.0 Localized edema; Z86.718 Personal history of other venous thrombosis and embolism
CPT/HCPCS: 93970

== ENCOUNTER → 2017-04-22 | Outpatient (CLI) | payer MEDICARE, OTHER | END | disposition home or self-care (01) | LOC: US 09:58 | DX: I83.92 Asymptomatic varicose veins of left lower extremity (principal) | CPT/HCPCS: 93971 ==

== ENCOUNTER → 2017-08-14 | Day surgery (SDC) | payer MEDICARE, OTHER ==
[~2017-08-14] MED LIST changes: -AMLO10TA2 PO; -ASPI-482 PO; -ASPI325T8 PO; -ATORVASTATIN CA80 MG PO; -CARV12.5 PO; -CARV25TA PO; -CARV25TA2 PO; -CLOP75TA PO; -FURO20TA3 PO; -FURO40TA4 PO; -GLIP5TAB10 PO; +GLYCOPYRROLATE 1 MG/5 ML VIAL.; -HYDR-2868 PO; -HYDR12.53 PO; -INSU100C4 SQ; -INSU100I17 SQ; -INSU100V13 SQ; -ISOS30TA4 PO; -LEVA; +LIDOCAINE 1% PF 2 ML VIAL. ID; +LIDOCAINE 2% PF Vial for OR 5 ML VIAL.; -LISI10TA2 PO; -LISI40TA PO; -METF-620 PO; +MORPHINE SULFATE 4 MG/ML DISP.SYRIN. IV; -OMEP40CA5 PO; +PROCHLORPERAZINE 10 MG/2 ML VIAL. IV; +PROPOFOL 40 ML IV; -SPIR25TA3 PO; +ePHEDrine PF IN SALINE 50 MG/5 ML DISP.SYRIN IV; +fentaNYL PF VIAL 100 MCG/2 ML VIAL IV
[2017-08-14] MEDS: IV RINGERS,LACTATED 1000ML 1,000 ML IV (07:00)
[2017-08-14] MEDS: ONDANSETRON PF 4 MG/2 ML VIAL. IV (09:25)
== END | disposition home or self-care (01) ==
LOC: ENDOS 07:51
DX: Z09 Encounter for follow-up examination after completed treatment for conditions other than malignant neoplasm (principal); Z86.010 Personal history of colon polyps; D12.2 Benign neoplasm of ascending colon; K57.30 Diverticulosis of large intestine without perforation or abscess without bleeding; K64.0 First degree hemorrhoids; K21.0 Gastro-esophageal reflux disease with esophagitis; K29.80 Duodenitis without bleeding; K31.7 Polyp of stomach and duodenum; K29.50 Unspecified chronic gastritis without bleeding; K29.00 Acute gastritis without bleeding; Z88.8 Allergy status to other drugs, medicaments and biological substances; I25.2 Old myocardial infarction; Z79.01 Long term (current) use of anticoagulants; E11.9 Type 2 diabetes mellitus without complications; Z82.49 Family history of ischemic heart disease and other diseases of the circulatory system; Z83.71 Family history of colonic polyps; Z79.82 Long term (current) use of aspirin; Z90.49 Acquired absence of other specified parts of digestive tract; I25.10 Atherosclerotic heart disease of native coronary artery without angina pectoris; I11.0 Hypertensive heart disease with heart failure; I50.9 Heart failure, unspecified; E78.00 Pure hypercholesterolemia, unspecified; Z86.718 Personal history of other venous thrombosis and embolism; Z80.1 Family history of malignant neoplasm of trachea, bronchus and lung; Z79.84 Long term (current) use of oral hypoglycemic drugs
CPT/HCPCS: 43239; 45380; 88305; J2405; J2704; J3490

== ENCOUNTER 2017-11-15 07:34 | Emergency (ER) | payer MEDICARE, OTHER ==
[2017-11-15 08:52] LABS: BASO # 0.1 x10^3/uL (0.0-0.2); BASO % 1 % (0-3); EOS # 0.1 x10^3/uL (0.0-0.7); EOS % 1 % (0-3); HEMATOCRIT 35.2 % (36.0-47.0); HEMOGLOBIN 12.1 g/dL (12.0-15.5); LYMPH # 0.5 x10^3/uL (1.0-4.8); LYMPH % 4 % (24-48); MEAN CORPUSCULAR HEMOGLOBIN 29 pg (25-35); MEAN CORPUSCULAR HGB CONC 34 g/dL (31-37); MEAN CORPUSCULAR VOLUME 85 fL (79-100); MONO # 0.8 x10^3/uL (0.0-1.1); MONO % 6 % (0-9); NEUT # 11.6 x10^3uL (1.8-7.7); NEUT % 89 % (31-73); PLATELET COUNT 175 x10^3/uL (140-400); RED BLOOD COUNT 4.12 x10^6/uL (3.50-5.40); RED CELL DISTRIBUTION WIDTH 14.1 % (11.5-14.5); WHITE BLOOD COUNT 13.1 x10^3/uL (4.0-11.0)
[2017-11-15 08:53] LABS: ADD MAN DIFF? YES
[2017-11-15 09:04] LABS: ANION GAP 11 (6-14); BLOOD UREA NITROGEN 32 mg/dL (7-20); BUN/CREATININE RATIO 21 (6-20); CALCIUM 8.3 mg/dL (8.5-10.1); CARBON DIOXIDE 21 mmol/L (21-32); CHLORIDE 107 mmol/L (98-107); CREATININE 1.5 mg/dL (0.6-1.0); GFR 34.3; GLUCOSE 161 mg/dL (70-99); POTASSIUM 4.6 mmol/L (3.5-5.1); SODIUM 139 mmol/L (136-145)
[2017-11-15 09:10] LABS: ALBUMIN 3.3 g/dL (3.4-5.0); ALBUMIN/GLOBULIN RATIO 0.9 (1.0-1.7); ALK PHOS 143 U/L (46-116); ALT (SGPT) 14 U/L (14-59); AST (SGOT) 14 U/L (15-37); TOTAL BILIRUBIN 0.5 mg/dL (0.2-1.0); TOTAL PROTEIN 6.8 g/dL (6.4-8.2)
[2017-11-15 09:15] LABS: TROPONINI < 0.017 ng/mL (0.000-0.055)
[2017-11-15] MEDS: ASPIRIN CHEWABLE 81 MG TABLET. PO (09:42)
[2017-11-15] MEDS: IV NORMAL SALINE 1000ML BAG 1,000 ML IV (09:44)
[2017-11-15 09:56] LABS: POC GLUCOSE 150 mg/dL (70-99)
[2017-11-15 10:10] LABS: % BANDS 3 % (0-9); % BASOS 1 % (0-3); % EOS 1 % (0-5); % LYMPHS 4 % (24-48); % MONOS 4 % (0-10); % SEGS 87 % (35-66); PLT ESTIMATE ADEQUATE (ADEQUATE)
[2017-11-15] MEDS: AZITHROMYCIN 250 MG TABLET. PO (10:21)
== END 2017-11-15 11:45 | disposition home or self-care (01) ==
LOC: ER 07:34
DX: J18.1 Lobar pneumonia, unspecified organism (principal); I10 Essential (primary) hypertension; E11.9 Type 2 diabetes mellitus without complications; I25.2 Old myocardial infarction; Z86.718 Personal history of other venous thrombosis and embolism; Z88.8 Allergy status to other drugs, medicaments and biological substances
CPT/HCPCS: 36415; 71046; 80053; 82962; 84484; 85007; 85025; 87040; 93005; 96365; 99285-25; J0690; J7030; Q0144

== ENCOUNTER 2018-01-07 18:22 | Emergency (ER) | payer MEDICARE, OTHER ==
[~2018-01-07] VITALS: Ht 165.1 cm; Wt 90.7 kg
[~2018-01-07 18:22] MED LIST changes: +AMLO10TA6 PO; +AMOX1TAB61 PO; +ASPI-482 PO; +ASPI325T8 PO; +ATORVASTATIN CA80 MG PO; +CARV12.5 PO; +CARV25TA PO; +CARV25TA2 PO; +CLOP75TA PO; +FURO20TA3 PO; +FURO40TA4 PO; +GLIP5TAB10 PO; -GLYCOPYRROLATE 1 MG/5 ML VIAL.; +GUAI118L20 PO; +HYDR-2868 PO; +HYDR12.53 PO; +INSU100C4 SQ; +INSU100I17 SQ; +INSU100V13 SQ; +ISOS30TA4 PO; +LEVA; -LIDOCAINE 1% PF 2 ML VIAL. ID; -LIDOCAINE 2% PF Vial for OR 5 ML VIAL.; +LISI-130 PO; +LISI10TA2 PO; +METF10007 PO; -MORPHINE SULFATE 4 MG/ML DISP.SYRIN. IV; +OMEP40CA5 PO; -PROCHLORPERAZINE 10 MG/2 ML VIAL. IV; -PROPOFOL 40 ML IV; +SPIR25TA5 PO; -ePHEDrine PF IN SALINE 50 MG/5 ML DISP.SYRIN IV; -fentaNYL PF VIAL 100 MCG/2 ML VIAL IV
--- NOTE | 2018-01-07 22:07 | PHYS DOC ---
Past Medical History Past Medical History: Diabetes-Type II, DVT, Hypertension, MD Past Surgical History: Cholecystectomy, Other Additional Past Surgical Histo: CATARACT-bilateral Alcohol Use: None Drug Use: None Adult General Chief Complaint Chief Complaint: ABNORMAL LABS [facility] HPI Patient is a 72 year old female who presents to the ED after she received a phone call from her doctor's office notifying her of an abnormal potassium level. Patient states she had labs drawn yesterday and she got a phone call today and "thinks it was 5.9". She recently underwent medication changes as directed by her doctor, including discontinuing her lisinopril and her spironolactone. She denies any pain, nausea, vomiting, diarrhea, constipation, weakness, dizziness, or blurry vision. Review of Systems Review of Systems Constitutional: Denies fever or chills Eyes: Denies change in visual acuity, redness, or eye pain HENT: Denies nasal congestion or sore throat Respiratory: Denies cough or shortness of breath Cardiovascular: No additional information not addressed in HPI GI: Denies abdominal pain, nausea, vomiting, diarrhea, or constipation : Denies dysuria or hematuria Musculoskeletal: Denies back pain or joint pain Integument: Denies rash or skin lesions Neurologic: Denies headache, focal weakness or sensory changes Complete systems were reviewed and found to be within normal limits, except as documented in this note. Family History Family History Brother- heart problems Grandmother- heart problems Current Medications Current Medications Current Medications Medications (Trade) Dose Ordered Sig/Radha Start Time Stop Time Status Last Admin Dose Admin Sodium Chloride 1,000 ml @ 1,000 mls/hr 1X ONCE 01/07/18 23:15 01/08/18 00:14 DC 01/07/18 23:19 1,000 MLS/HR Allergies Allergies Allergies Coded Allergies Type Severity Reaction Last Updated Verified liraglutide Allergy Intermediate Nausea and Vomiting 01/26/17 Yes Physical Exam Physical Exam Constitutional: Well developed, well nourished, no acute distress, non-toxic appearance HENT: Normocephalic, atraumatic, oropharynx moist, no oral exudates, nose normal Eyes: Conjunctiva normal, no discharge Neck: Normal range of motion, no tenderness, supple, no meningismus Cardiovascular: Heart rate regular rhythm, no murmur Lungs & Thorax: Bilateral breath sounds clear to auscultation Abdomen: Soft, non-tender Skin: Warm, dry, no erythema, no rash Back: No tenderness, no CVA tenderness Extremities: No tenderness, ROM intact, no edema Neurologic: Alert and oriented X 3, normal motor function, normal sensory function, no focal deficits noted Psychologic: Affect normal, judgement normal, mood normal Current Patient Data Vital Signs Vital Signs Date Time Temp Pulse Resp B/P (MAP) Pulse Ox O2 Delivery O2 Flow Rate FiO2 01/07/18 23:53 59 121/60 (80) 98 Room Air 01/07/18 21:20 98.2 18 98.2 01/07/18 20:41 97.0 Lab Values Laboratory Tests Test 01/07/18 22:24 White Blood Count 4.8 x10^3/uL (4.0-11.0) Red Blood Count 4.05 x10^6/uL (3.50-5.40) Hemoglobin 11.7 g/dL (12.0-15.5) L Hematocrit 35.1 % (36.0-47.0) L Mean Corpuscular Volume 87 fL (79-100) Mean Corpuscular Hemoglobin 29 pg (25-35) Mean Corpuscular Hemoglobin Concent 33 g/dL (31-37) Red Cell Distribution Width 14.3 % (11.5-14.5) Platelet Count 180 x10^3/uL (140-400) Neutrophils (%) (Auto) 61 % (31-73) Lymphocytes (%) (Auto) 26 % (24-48) Monocytes (%) (Auto) 8 % (0-9) Eosinophils (%) (Auto) 4 % (0-3) H Basophils (%) (Auto) 2 % (0-3) Neutrophils # (Auto) 2.9 x10^3uL (1.8-7.7) Lymphocytes # (Auto) 1.2 x10^3/uL (1.0-4.8) Monocytes # (Auto) 0.4 x10^3/uL (0.0-1.1) Eosinophils # (Auto) 0.2 x10^3/uL (0.0-0.7) Basophils # (Auto) 0.1 x10^3/uL (0.0-0.2) Sodium Level 141 mmol/L (136-145) Potassium Level 5.5 mmol/L (3.5-5.1) H Chloride Level 109 mmol/L (98-107) H Carbon Dioxide Level 19 mmol/L (21-32) L Anion Gap 13 (6-14) Blood Urea Nitrogen 30 mg/dL (7-20) H Creatinine 1.6 mg/dL (0.6-1.0) H Estimated GFR (Cockcroft-Gault) 31.9 BUN/Creatinine Ratio 19 (6-20) Glucose Level 132 mg/dL (70-99) H Calcium Level 8.6 mg/dL (8.5-10.1) Magnesium Level 1.6 mg/dL (1.8-2.4) L Total Bilirubin 0.3 mg/dL (0.2-1.0) Aspartate Amino Transferase (AST) 10 U/L (15-37) L Alanine Aminotransferase (ALT) 17 U/L (14-59) Alkaline Phosphatase 118 U/L (46-116) H Total Protein 6.8 g/dL (6.4-8.2) Albumin 3.3 g/dL (3.4-5.0) L Albumin/Globulin Ratio 0.9 (1.0-1.7) L Laboratory Tests 01/07/18 22:24 Laboratory Tests 01/07/18 22:24 EKG EKG @ 23:14, NSR at 58 bpm, no prolonged QT/QTc, no ST elevations/reciprocal changes Radiology/Procedures Radiology/Procedures [] Course & Med Decision Making Course & Med Decision Making Rina Murphy is a 72 year old female who presents to the ED after she received a phone call from her doctor's office notifying her of an abnormal potassium level , which was 5.9. Pertinent labs and imaging studies were obtained and reviewed ( see chart for details). Her potassium was found to be 5.5. Her creatinine is elevated, but this is her baseline per previous records in [facility]. An EKG was ordered @ 23:14 and showed normal sinus rhythm at [address] segment elevations or reciprocal changes. She was given 1 L of fluids. Patient's case discussed with her drop crew laborer, Dr. Dillon, who recommended that her lisinopril be held and that she be discharged to followup with him. Patient stable for discharge with outpatient follow-up with Dr. Katrapatti. Discussed findings and plan with patient and family, who acknowledge understanding and agreement. Dragon Disclaimer Dragon Disclaimer This electronic medical record was generated, in whole or in part, using a voice recognition dictation system. Departure Departure Impression: Primary Impression: Hyperkalemia Additional Impression: Renal insufficiency Disposition: 01 HOME, SELF-CARE Condition: STABLE Referrals: RINA YOUNG MD (PCP) IOANA QUIROS MD Patient Instructions: Hyperkalemia, Ldxe-lo-Omgo Additional Instructions: Hold your lisinopril. Increase your other blood pressure medication as recommended by your drop crew laborer. Problem Qualifiers MARJORIE JOHNSON DO Jan 07, 2018 22:07
[2018-01-07 22:33] LABS: BASO # 0.1 x10^3/uL (0.0-0.2); BASO % 2 % (0-3); EOS # 0.2 x10^3/uL (0.0-0.7); EOS % 4 % (0-3); HEMATOCRIT 35.1 % (36.0-47.0); HEMOGLOBIN 11.7 g/dL (12.0-15.5); LYMPH # 1.2 x10^3/uL (1.0-4.8); LYMPH % 26 % (24-48); MEAN CORPUSCULAR HEMOGLOBIN 29 pg (25-35); MEAN CORPUSCULAR HGB CONC 33 g/dL (31-37); MEAN CORPUSCULAR VOLUME 87 fL (79-100); MONO # 0.4 x10^3/uL (0.0-1.1); MONO % 8 % (0-9); NEUT # 2.9 x10^3uL (1.8-7.7); NEUT % 61 % (31-73); PLATELET COUNT 180 x10^3/uL (140-400); RED BLOOD COUNT 4.05 x10^6/uL (3.50-5.40); RED CELL DISTRIBUTION WIDTH 14.3 % (11.5-14.5); WHITE BLOOD COUNT 4.8 x10^3/uL (4.0-11.0)
[2018-01-07 22:41] LABS: CALCIUM 8.6 mg/dL (8.5-10.1); CREATININE 1.6 mg/dL (0.6-1.0); GFR 31.9; POTASSIUM 5.5 mmol/L (3.5-5.1)
[2018-01-07 22:46] LABS: ALBUMIN 3.3 g/dL (3.4-5.0); ALBUMIN/GLOBULIN RATIO 0.9 (1.0-1.7); MAGNESIUM 1.6 mg/dL (1.8-2.4); TOTAL BILIRUBIN 0.3 mg/dL (0.2-1.0); TOTAL PROTEIN 6.8 g/dL (6.4-8.2)
[2018-01-07] MEDS ORDERED: IV NORMAL SALINE 1000ML BAG 1,000 ML IV ONE (23:15)
--- NOTE | 2018-01-07 23:33 | EKG ---
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
[2018-01-07 23:53] VITALS: BP 121/60
== END 2018-01-08 00:18 | disposition home or self-care (01) ==
LOC: ER 18:22
DX: E87.5 Hyperkalemia (principal); N28.9 Disorder of kidney and ureter, unspecified; I10 Essential (primary) hypertension; E11.9 Type 2 diabetes mellitus without complications; Z86.718 Personal history of other venous thrombosis and embolism; I25.2 Old myocardial infarction; Z88.8 Allergy status to other drugs, medicaments and biological substances
CPT/HCPCS: 36415; 80053; 83735; 85025; 93005; 99285; J7030

== ENCOUNTER → 2018-02-11 | Outpatient (CLI) | payer MEDICARE, OTHER ==
[2018-02-11 11:08] LABS: BASO # 0.1 x10^3/uL (0.0-0.2); BASO % 2 % (0-3); EOS # 0.2 x10^3/uL (0.0-0.7); EOS % 3 % (0-3); HEMATOCRIT 33.9 % (36.0-47.0); HEMOGLOBIN 11.2 g/dL (12.0-15.5); LYMPH # 0.9 x10^3/uL (1.0-4.8); LYMPH % 15 % (24-48); MEAN CORPUSCULAR HEMOGLOBIN 28 pg (25-35); MEAN CORPUSCULAR HGB CONC 33 g/dL (31-37); MEAN CORPUSCULAR VOLUME 85 fL (79-100); MONO # 0.5 x10^3/uL (0.0-1.1); MONO % 9 % (0-9); NEUT # 4.4 x10^3uL (1.8-7.7); NEUT % 72 % (31-73); PLATELET COUNT 229 x10^3/uL (140-400); RED BLOOD COUNT 3.97 x10^6/uL (3.50-5.40); WHITE BLOOD COUNT 6.1 x10^3/uL (4.0-11.0)
[2018-02-11 11:24] LABS: ALBUMIN 3.3 g/dL (3.4-5.0); ALBUMIN/GLOBULIN RATIO 0.9 (1.0-1.7); CALCIUM 8.4 mg/dL (8.5-10.1); CREATININE 1.6 mg/dL (0.6-1.0); GFR 31.9; POTASSIUM 4.3 mmol/L (3.5-5.1); TOTAL BILIRUBIN 0.6 mg/dL (0.2-1.0)
== END | disposition home or self-care (01) ==
LOC: LAB 10:39
PROVIDERS: ATTEND Internal Medicine Cardiovascular Disease
DX: I48.0 Paroxysmal atrial fibrillation (principal)
CPT/HCPCS: 36415; 80053; 83880; 85025

== ENCOUNTER 2018-02-17 10:11 | Day surgery (SDC) | payer MEDICARE, OTHER ==
[~2018-02-17 10:11] MED LIST changes: +HYDROmorphone 2 MG/ML VIAL IV PRN; +IV RINGERS,LACTATED 1000ML 1,000 ML IV SCH; +MORPHINE SULFATE 2 MG/ML VIAL. IV PRN; +ONDANSETRON PF 4 MG/2 ML VIAL. IV PRN; +PROCHLORPERAZINE 10 MG/2 ML VIAL. IV PRN; +fentaNYL PF VIAL 100 MCG/2 ML VIAL IV PRN
[2018-02-17] MEDS: LIDOCAINE 1% PF 2 ML VIAL. ID PRN ×2 (10:43→11:19)
[2018-02-17] MEDS ORDERED: LIDOCAINE 2% TOPICAL JELLY 5GM TUBE. TP ONE (10:45)
[2018-02-17] MEDS ORDERED: BENZOCAINE ONE 20% MUCOSAL SPRAY. MM SCH (10:45)
[2018-02-17] MEDS ORDERED: LIDOCAINE 2% VISCOUS 15 ML SOLUTION. SWSW ONE (10:45)
--- NOTE | 2018-02-17 11:00 | EKG ---
[facility] [address] [place] [address] Test Date: 2018-02-17 Test Time: 10:06:30 Pat Name: RINA SIN Department: Room: Gender: F Pe[employer] Hrms Developer: : 1945 Requested By: CRISTHIAN GOMEZ Order Number: [id number] Reading MD: Enrico Whitehead Measurements Intervals [place] Rate: 80 P: [place]: QRS: 20 QRSD: 72 T: 28 QT: 418 QTc: 486 Interpretive Statements ATRIAL FIBRILLATION Electronically Signed On 02-20-2018 10:20:18 CDT by Enrico Whitehead
[2018-02-17] MEDS ORDERED: LIDOCAINE 2% TOPICAL JELLY 30GM TUBE. TP ONE (11:03)
[2018-02-17] MEDS ORDERED: PROPOFOL 20 ML IV ONE (11:34)
[2018-02-17] MEDS ORDERED: APIXABAN 5 MG TABLET. PO STA (12:26)
--- NOTE | 2018-02-17 12:36 | EKG ---
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
[2018-02-17 12:49] LABS: BASO % 0 % (0-3); EOS # 0.1 x10^3/uL (0.0-0.7); EOS % 2 % (0-3); HEMATOCRIT 32.5 % (36.0-47.0); LYMPH # 0.8 x10^3/uL (1.0-4.8); LYMPH % 16 % (24-48); MEAN CORPUSCULAR HEMOGLOBIN 29 pg (25-35); MEAN CORPUSCULAR HGB CONC 34 g/dL (31-37); MEAN CORPUSCULAR VOLUME 84 fL (79-100); MONO # 0.4 x10^3/uL (0.0-1.1); MONO % 9 % (0-9); NEUT # 3.8 x10^3uL (1.8-7.7); NEUT % 73 % (31-73); PLATELET COUNT 213 x10^3/uL (140-400); RED BLOOD COUNT 3.87 x10^6/uL (3.50-5.40); RED CELL DISTRIBUTION WIDTH 13.6 % (11.5-14.5); WHITE BLOOD COUNT 5.2 x10^3/uL (4.0-11.0)
[2018-02-17 12:53] LABS: CALCIUM 8.5 mg/dL (8.5-10.1); CREATININE 1.6 mg/dL (0.6-1.0); GFR 31.9; POTASSIUM 3.5 mmol/L (3.5-5.1)
[2018-02-17 13:05] VITALS: BP 122/59
--- NOTE | 2018-02-17 15:15 | CARD ---
MR#: [id number] Date of Study: 02/17/2018 Ordering Physician: IOANA QUIROS, Referring Physician: IOANA QUIROS Tech: Rufina Lopez RDCS APPROVED REPORT EXAM: Transesophageal echocardiogram with color flow Doppler and Synchronized Cardioversion. INDICATION Atrial Fibrillation Reason For Test : Rule out cardiac source of emboli. PROCEDURE After obtaining informed consent, patient underwent transesophageal echo in the PACU. Type of Sedation : General Anesthesia Sedation was administered by Suresh Metcalf CRNA. Sedation was achieved with Propofol 150 mg intravenously. Transesophageal probe was inserted and advanced into esophagus by Ioana Quiros MD. The DEYVI was performed without complications. Synchronized Cardioversion attempted: Successful Synchronized Cardioversion acheived with 200 Joules after 1 attempt(s). Throughout the procedure, the blood pressure, pulse oximetry, cardiac rhythm, and rate were monitored . The patient tolerated the procedure without adverse effects. Recovery from general anesthesia was une ventful and vital signs were stable. LEFT VENTRICLE The left ventricle is normal size. There is normal left ventricular wall thickness. The left ventricu lar systolic function is normal and the ejection fraction is within normal range. The Ejection Fracti on is 55-60%. There is normal LV segmental wall motion. No left ventricle thrombus noted on this stud y. There is no left ventricular aneurysm. RIGHT VENTRICLE The right ventricle is normal size. The right ventricular systolic function is normal. ATRIA The left atrium is mildly dilated. The right atrium is mildly dilated. The interatrial septum is inta ct with no evidence for an atrial septal defect or patent foramen ovale as noted on 2-D or Doppler im aging. There is no thrombus noted in the left atrial appendage. AORTIC VALVE The aortic valve is calcified but opens well. Doppler and Color Flow revealed no significant aortic r egurgitation. There is no significant aortic valvular stenosis. MITRAL VALVE The mitral valve is normal in structure and function. There is no evidence of mitral valve prolapse. There is no mitral valve stenosis. Doppler and Color-flow revealed trace to mild mitral regurgitation . TRICUSPID VALVE The tricuspid valve is normal in structure and function. Doppler and Color Flow revealed mild tricusp id regurgitation. There is mild pulmonary hypertension. The PA pressure was estimated at 33 mmHg. The re is no tricuspid valve stenosis. PULMONIC VALVE Doppler and Color Flow revealed trace pulmonic valvular regurgitation. There is no pulmonic valvular stenosis. GREAT VESSELS The aortic root is normal in size. The IVC is normal in size and collapses >50% with inspiration. Critical Notification Critical Value: No <Conclusion> The left ventricular systolic function is normal and the ejection fraction is within normal range. Th e Ejection Fraction is 55-60%. There is normal LV segmental wall motion. There is no thrombus noted in the left atrial appendage. Doppler and Color Flow revealed mild tricuspid regurgitation. There is mild pulmonary hypertension. The PA pressure was estimated at 33 mmHg. Successful CVN to SR Signed by : Ioana Quiros, Electronically Approved : 02/17/2018 15:15:11
== END 2018-02-17 13:19 | disposition home or self-care (01) ==
LOC: SURG 10:11
PROVIDERS: ATTEND Internal Medicine Cardiovascular Disease
DX: I08.8 Other rheumatic multiple valve diseases (principal); I48.91 Unspecified atrial fibrillation; I27.20 Pulmonary hypertension, unspecified; I10 Essential (primary) hypertension; E11.9 Type 2 diabetes mellitus without complications; E78.5 Hyperlipidemia, unspecified; I25.10 Atherosclerotic heart disease of native coronary artery without angina pectoris; E66.9 Obesity, unspecified; Z68.35 Body mass index [BMI] 35.0-35.9, adult; M19.90 Unspecified osteoarthritis, unspecified site; K21.9 Gastro-esophageal reflux disease without esophagitis; Z79.82 Long term (current) use of aspirin; Z79.899 Other long term (current) drug therapy; Z88.8 Allergy status to other drugs, medicaments and biological substances; Z79.84 Long term (current) use of oral hypoglycemic drugs; Z79.01 Long term (current) use of anticoagulants
CPT/HCPCS: 36415; 80048; 82962; 83880; 85025; 92960; 93005; 93312; 93320; 93325; J1650; J2704

== ENCOUNTER → 2018-03-05 | Outpatient (CLI) | payer MEDICARE, OTHER ==
[2018-02-17 13:05] VITALS: BP 122/59
[~2018-03-05] MED LIST changes: -HYDROmorphone 2 MG/ML VIAL IV PRN; -IV RINGERS,LACTATED 1000ML 1,000 ML IV SCH; -MORPHINE SULFATE 2 MG/ML VIAL. IV PRN; -ONDANSETRON PF 4 MG/2 ML VIAL. IV PRN; -PROCHLORPERAZINE 10 MG/2 ML VIAL. IV PRN; -fentaNYL PF VIAL 100 MCG/2 ML VIAL IV PRN
[2018-03-05 10:56] LABS: HEMATOCRIT 35.9 % (36.0-47.0); HEMOGLOBIN 12.2 g/dL (12.0-15.5)
[2018-03-05 11:26] LABS: ALBUMIN 3.5 g/dL (3.4-5.0); CALCIUM 8.9 mg/dL (8.5-10.1); CREATININE 1.6 mg/dL (0.6-1.0); GFR 31.9; MAGNESIUM 1.9 mg/dL (1.8-2.4); PHOSPHORUS 4.8 mg/dL (2.6-4.7); POTASSIUM 3.9 mmol/L (3.5-5.1); URIC ACID 6.8 mg/dL (2.6-6.0)
[2018-03-05 18:12] LABS: CALCIUM PTH 8.7 mg/dL (8.7-10.3); CREATININE PTH 1.45 mg/dL (0.57-1.00); PHOSPHORUS PTH 4.5 mg/dL (2.5-4.5); PTH INTACT 99 pg/mL (15-65)
[2018-03-05 19:16] LABS: CREAT RD UR 41.9 mg/dL (Not Estab.); MICRO CREAT RATIO <7.2 mg/g creat (0.0-30.0); MICROALB RD UR <3.0 ug/mL (Not Estab.)
== END | disposition home or self-care (01) ==
LOC: LAB 10:30
PROVIDERS: ATTEND Internal Medicine Nephrology
DX: E11.22 Type 2 diabetes mellitus with diabetic chronic kidney disease (principal); I13.0 Hypertensive heart and chronic kidney disease with heart failure and stage 1 through stage 4 chronic kidney disease, or unspecified chronic kidney disease; I50.9 Heart failure, unspecified; N18.3 Chronic kidney disease, stage 3 (moderate); I25.10 Atherosclerotic heart disease of native coronary artery without angina pectoris; E11.51 Type 2 diabetes mellitus with diabetic peripheral angiopathy without gangrene; E78.00 Pure hypercholesterolemia, unspecified; E66.9 Obesity, unspecified; K21.9 Gastro-esophageal reflux disease without esophagitis; Z68.33 Body mass index [BMI] 33.0-33.9, adult; Z86.718 Personal history of other venous thrombosis and embolism; Z86.010 Personal history of colon polyps
CPT/HCPCS: 36415; 80069; 82043; 82306; 82570; 82728; 83540; 83550; 83735; 83970; 84550; 85014; 85018

== ENCOUNTER 2018-03-17 06:24 | Day surgery (SDC) | payer MEDICARE, OTHER ==
[~2018-03-17 06:24] MED LIST changes: +AMIO200T4 PO; +APIX5TAB PO; +FURO-68 PO; +HYDR-2869 PO; -HYDR12.53 PO; +HYDR12.575 PO
--- NOTE | 2018-03-17 06:55 | EKG ---
[facility] [address] [place] [address] Test Date: 2018-03-17 Test Time: 07:03:00 Pat Name: RINA SIN Department: Room: Gender: F Pheresis Specialist: BARBARA : 1945 Requested By: IOANA QUIROS Order Number: [id number] Reading MD: Bulmaro Gibson Measurements Intervals [place] Rate: 73 P: [place]: QRS: 21 QRSD: 72 T: 31 QT: 406 QTc: 451 Interpretive Statements ATRIAL FIBRILLATION. NO SPECIFIC ECG ABNORMALITIES RI6.01 Compared to ECG 02/17/2018 12:29:42 Sinus rhythm no longer present Electronically Signed On 03-18-2018 9:38:24 LIP OF SHANK CUTTER by Bulmaro Gibson
[2018-03-17] MEDS ORDERED: PROCHLORPERAZINE 10 MG/2 ML VIAL. IV PRN (07:00)
[2018-03-17] MEDS ORDERED: IV RINGERS,LACTATED 1000ML 1,000 ML IV SCH (07:00)
[2018-03-17] MEDS ORDERED: fentaNYL PF VIAL 100 MCG/2 ML VIAL IV PRN ×2 (07:00)
[2018-03-17] MEDS ORDERED: HYDROmorphone 2 MG/ML VIAL IV PRN (07:00)
[2018-03-17] MEDS ORDERED: MORPHINE SULFATE 2 MG/ML VIAL. IV PRN (07:00)
[2018-03-17] MEDS ORDERED: LIDOCAINE 1% PF 2 ML VIAL. ID PRN (07:00)
[2018-03-17] MEDS ORDERED: ONDANSETRON PF 4 MG/2 ML VIAL. IV PRN (07:00)
[2018-03-17] MEDS ORDERED: BENZOCAINE ONE 20% MUCOSAL SPRAY. (07:55)
[2018-03-17] MEDS ORDERED: LIDOCAINE 2% TOPICAL JELLY 30GM TUBE. TP ONE (07:56)
[2018-03-17] MEDS ORDERED: LIDOCAINE 2% VISCOUS 15 ML SOLUTION. ONE (07:56)
[2018-03-17] MEDS ORDERED: PROPOFOL 20 ML IV ONE (08:06)
[2018-03-17] MEDS ORDERED: LIDOCAINE 2% PF Vial for OR 5 ML VIAL. ONE (08:06)
--- NOTE | 2018-03-17 09:12 | EKG ---
[facility] [address] [place] [address] Test Date: 2018-03-17 Test Time: 09:09:28 Pat Name: RINA SIN Department: Room: Gender: F Manager Support Services: ANETA : 1945 Requested By: IOANA QUIROS Order Number: [id number] Reading MD: Bulmaro Gibson Measurements Intervals [place] Rate: 70 P: 43 [place]: 194 QRS: 31 QRSD: 88 T: 40 QT: 438 QTc: 476 Interpretive Statements SINUS RHYTHM LOW LIMB LEAD VOLTAGE PROLONGED QT NO SPECIFIC ECG ABNORMALITIES RI6.01 Compared to ECG 02/17/2018 12:29:42 Prolonged QT interval now present Electronically Signed On 03-18-2018 9:38:58 CONVICT GUARD by Bulmaro Gibson
[2018-03-17 09:25] VITALS: BP 113/60
--- NOTE | 2018-03-17 11:58 | CARD ---
MR#: [id number] Date of Study: 03/17/2018 Ordering Physician: IOANA SORIANO, Referring Physician: IOANA SORIANO, Tech: Claudine Alamo APPROVED REPORT EXAM: Transesophageal echocardiogram with color flow Doppler and Synchronized Cardioversion. INDICATION Atrial Fibrillation RISK FACTORS Hypertension Hyperlipidemia Diabetes Reason For Test : Rule out Intracardiac Thrombus. PROCEDURE After obtaining informed consent, patient underwent transesophageal echo in the PACU. Type of Sedation : General Anesthesia Sedation was administered by Dr. Tinsley. Sedation was achieved with Propofol 170mg intravenously. Transesophageal probe was inserted and advanced into esophagus by Bill Soriano MD. The DEYVI was performed without complications. Synchronized Cardioversion attempted: Successful Synchronized Cardioversion acheived with 200 Joules after 1 attempt(s). Rhythm following Synchronized Cardioversion: Normal Sinus Rhythm Throughout the procedure, the blood pressure, pulse oximetry, cardiac rhythm, and rate were monitored . LEFT VENTRICLE The left ventricle is normal size. There is normal left ventricular wall thickness. The left ventricu lar systolic function is normal and the ejection fraction is within normal range. EF 50-55% There is normal LV segmental wall motion. RIGHT VENTRICLE The right ventricle is normal size. There is normal right ventricular wall thickness. The right ventr icular systolic function is normal. ATRIA The left atrium is moderately dilated. The right atrium size is normal. The interatrial septum is int act with no evidence for an atrial septal defect or patent foramen ovale as noted on 2-D or Doppler i maging. There is no thrombus noted in the left atrial appendage. AORTIC VALVE The aortic valve is normal in structure and function. Doppler and Color Flow revealed trace aortic re gurgitation. MITRAL VALVE The mitral valve is normal in structure and function. Doppler and Color-flow revealed trace mitral re gurgitation. TRICUSPID VALVE The tricuspid valve is normal in structure and function. GREAT VESSELS The aortic root is normal in size. Critical Notification Critical Value: No <Conclusion> The left ventricular systolic function is normal and the ejection fraction is within normal range. EF 50-55% There is normal LV segmental wall motion. No MATTEO thrombus. Successful CVN to SR. Signed by : Ioana Soriano, Electronically Approved : 03/17/2018 11:56:49
== END 2018-03-17 09:54 | disposition home or self-care (01) ==
LOC: SURG 06:24
PROVIDERS: ATTEND Internal Medicine Cardiovascular Disease
DX: I48.0 Paroxysmal atrial fibrillation (principal); I08.0 Rheumatic disorders of both mitral and aortic valves; Z88.8 Allergy status to other drugs, medicaments and biological substances; Z79.899 Other long term (current) drug therapy
CPT/HCPCS: 76376; 82962; 92960; 93005; 93312; 93325; J2001; J2704

== ENCOUNTER → 2018-04-27 | Outpatient (CLI) | payer MEDICARE, OTHER ==
[2018-04-27 10:24] LABS: ALBUMIN 3.3 g/dL (3.4-5.0); ALBUMIN/GLOBULIN RATIO 0.8 (1.0-1.7); CALCIUM 9.1 mg/dL (8.5-10.1); CREATININE 1.6 mg/dL (0.6-1.0); GFR 31.9; POTASSIUM 3.7 mmol/L (3.5-5.1); TOTAL BILIRUBIN 0.6 mg/dL (0.2-1.0); TOTAL PROTEIN 7.3 g/dL (6.4-8.2)
== END | disposition home or self-care (01) ==
LOC: LAB 09:44
PROVIDERS: ATTEND Internal Medicine Cardiovascular Disease
DX: I11.0 Hypertensive heart disease with heart failure (principal); I50.33 Acute on chronic diastolic (congestive) heart failure; E11.9 Type 2 diabetes mellitus without complications; E78.5 Hyperlipidemia, unspecified; K21.9 Gastro-esophageal reflux disease without esophagitis; Z79.84 Long term (current) use of oral hypoglycemic drugs
CPT/HCPCS: 36415; 80053; 83880

== ENCOUNTER → 2018-06-19 | Outpatient (CLI) | payer MEDICARE, OTHER ==
[~2018-06-19] MED LIST changes: -AMLO10TA6 PO; +AMLO10TA8 PO; +AZIT250T PO; +ISOS60TA2 PO
[2018-06-19 11:35] LABS: ALBUMIN 3.3 g/dL (3.4-5.0); CALCIUM 8.5 mg/dL (8.5-10.1); CREATININE 1.5 mg/dL (0.6-1.0); GFR 34.2; POTASSIUM 3.6 mmol/L (3.5-5.1)
== END | disposition home or self-care (01) ==
LOC: LAB 10:10
PROVIDERS: ATTEND Internal Medicine Nephrology
DX: I13.0 Hypertensive heart and chronic kidney disease with heart failure and stage 1 through stage 4 chronic kidney disease, or unspecified chronic kidney disease (principal); E11.22 Type 2 diabetes mellitus with diabetic chronic kidney disease; I50.9 Heart failure, unspecified; N18.3 Chronic kidney disease, stage 3 (moderate); Z68.34 Body mass index [BMI] 34.0-34.9, adult
CPT/HCPCS: 36415; 80069

== ENCOUNTER → 2018-08-03 | Outpatient (CLI) | payer MEDICARE, OTHER ==
[2018-08-03 09:54] LABS: ALBUMIN 3.2 g/dL (3.4-5.0); ALBUMIN/GLOBULIN RATIO 0.9 (1.0-1.7); CALCIUM 8.1 mg/dL (8.5-10.1); CREATININE 1.5 mg/dL (0.6-1.0); GFR 34.2; MAGNESIUM 1.8 mg/dL (1.8-2.4); POTASSIUM 3.3 mmol/L (3.5-5.1); TOTAL BILIRUBIN 0.4 mg/dL (0.2-1.0); TOTAL PROTEIN 6.8 g/dL (6.4-8.2)
[2018-08-03 09:55] LABS: CHOLESTEROL/HDL RATIO 2.2
== END | disposition home or self-care (01) ==
LOC: LAB 09:08
PROVIDERS: ATTEND Internal Medicine Cardiovascular Disease
DX: I13.0 Hypertensive heart and chronic kidney disease with heart failure and stage 1 through stage 4 chronic kidney disease, or unspecified chronic kidney disease (principal); N18.3 Chronic kidney disease, stage 3 (moderate); I50.32 Chronic diastolic (congestive) heart failure
CPT/HCPCS: 36415; 80053; 80061; 83721; 83735; 83880

== ENCOUNTER → 2018-08-06 | Day surgery (SDC) | payer MEDICARE, OTHER ==
[~2018-08-06] MED LIST changes: +BENZOCAINE ONE 20% MUCOSAL SPRAY. MM; +HYDROmorphone 2 MG/ML VIAL IV PRN; +IV RINGERS,LACTATED 1000ML 1,000 ML IV SCH; +LIDOCAINE 1% PF 2 ML VIAL. ID PRN; +LIDOCAINE 2% JELLY 6ML IN APPLICATOR. MM ONE; +LIDOCAINE 2% PF 5 ML VIAL. ONE; +LIDOCAINE 2% VISCOUS 15 ML SOLUTION. SWSW ONE; +MORPHINE SULFATE 2 MG/ML VIAL. IV PRN; +ONDANSETRON PF 4 MG/2 ML VIAL. IV PRN; +PROCHLORPERAZINE 10 MG/2 ML VIAL. IV PRN; +PROPOFOL 20 ML IV ONE; +fentaNYL PF VIAL 100 MCG/2 ML VIAL IV PRN
[2018-08-06 15:41] VITALS: BP 139/51
--- NOTE | 2018-08-06 16:09 | CARD ---
MR#: [id number] Date of Study: 08/06/2018 Ordering Physician: IOANA SORIANO, Referring Physician: IOANA SORIANO, Tech: Traci Sanabria [facility] APPROVED REPORT EXAM: Transesophageal echocardiogram with color flow Doppler. INDICATION Atrial Fibrillation Reason For Test : Rule out Intracardiac Thrombus. PROCEDURE After obtaining informed consent, patient underwent transesophageal echo in the PACU. Type of Sedation : General Anesthesia Sedation was administered by Beto Vale. Sedation was achieved with Propofol 180mg intravenously. Throughout the procedure, the blood pressure, pulse oximetry, cardiac rhythm, and rate were monitored . LEFT VENTRICLE The left ventricle is normal size. There is normal left ventricular wall thickness. The left ventricu lar systolic function is normal and the ejection fraction is within normal range. The Ejection Fracti on is 55-60%. There is normal LV segmental wall motion. No left ventricle thrombus noted on this stud y. There is no ventricular septal defect visualized. There is no left ventricular aneurysm. There is no mass noted in the left ventricle. RIGHT VENTRICLE The right ventricle is normal size. There is normal right ventricular wall thickness. The right ventr icular systolic function is normal. ATRIA The left atrium size is normal. The right atrium size is normal. The interatrial septum is intact wit h no evidence for an atrial septal defect or patent foramen ovale as noted on 2-D or Doppler imaging. There is no thrombus noted in the left atrial appendage. AORTIC VALVE The aortic valve is normal in structure and function. The aortic valve is trileaflet. Doppler and Col or Flow revealed no significant aortic regurgitation. There is no significant aortic valvular stenosi s. There is no aortic valvular vegetation. MITRAL VALVE The mitral valve is normal in structure and function. There is no evidence of mitral valve prolapse. There is no mitral valve stenosis. Doppler and Color-flow revealed trace mitral regurgitation. TRICUSPID VALVE The tricuspid valve is normal in structure and function. Doppler and Color Flow revealed no tricuspid valve regurgitation noted. There is no tricuspid valve prolapse or vegetation. There is no tricuspid valve stenosis. PULMONIC VALVE The pulmonary valve is normal in structure and function. Doppler and Color Flow revealed no pulmonic valvular regurgitation. There is no pulmonic valvular stenosis. GREAT VESSELS The aortic root is normal in size. The ascending aorta is normal in size. Normal left upper pulmonary vein. Normal left lower pulmonary vein. The IVC is normal in size and collapses >50% with inspiratio n. PERICARDIAL EFFUSION There is no evidence of significant pericardial effusion. There is no pleural effusion. Critical Notification Critical Value: No <Conclusion> The left ventricular systolic function is normal and the ejection fraction is within normal range. Th e Ejection Fraction is 55-60%. There is normal LV segmental wall motion. There is no thrombus noted in the left atrial appendage. Normal left upper pulmonary vein. Normal left lower pulmonary vein. Signed by : Ioana Soriano, Electronically Approved : 08/06/2018 16:08:23
== END | disposition home or self-care (01) ==
LOC: SURG 13:39
PROVIDERS: ATTEND Internal Medicine Cardiovascular Disease
DX: I34.0 Nonrheumatic mitral (valve) insufficiency (principal); I48.0 Paroxysmal atrial fibrillation; I10 Essential (primary) hypertension; E11.9 Type 2 diabetes mellitus without complications; E78.5 Hyperlipidemia, unspecified; I25.10 Atherosclerotic heart disease of native coronary artery without angina pectoris; E66.9 Obesity, unspecified; Z68.34 Body mass index [BMI] 34.0-34.9, adult; K21.9 Gastro-esophageal reflux disease without esophagitis; M19.90 Unspecified osteoarthritis, unspecified site; Z90.49 Acquired absence of other specified parts of digestive tract; Z98.42 Cataract extraction status, left eye; Z98.41 Cataract extraction status, right eye; Z96.1 Presence of intraocular lens; Z79.84 Long term (current) use of oral hypoglycemic drugs; Z88.8 Allergy status to other drugs, medicaments and biological substances; Z79.82 Long term (current) use of aspirin; Z79.899 Other long term (current) drug therapy
CPT/HCPCS: 82962; 93312; 93320; 93325; J2001; J2704

== ENCOUNTER 2018-08-18 04:24 | Emergency (ER) | payer MEDICARE, OTHER ==
[~2018-08-18] VITALS: Ht 165.1 cm; Wt 93.9 kg
[~2018-08-18 04:24] MED LIST changes: -AZIT250T PO; -BENZOCAINE ONE 20% MUCOSAL SPRAY. MM; -HYDROmorphone 2 MG/ML VIAL IV PRN; -IV RINGERS,LACTATED 1000ML 1,000 ML IV SCH; -LIDOCAINE 1% PF 2 ML VIAL. ID PRN; -LIDOCAINE 2% JELLY 6ML IN APPLICATOR. MM ONE; -LIDOCAINE 2% PF 5 ML VIAL. ONE; -LIDOCAINE 2% VISCOUS 15 ML SOLUTION. SWSW ONE; -MORPHINE SULFATE 2 MG/ML VIAL. IV PRN; -ONDANSETRON PF 4 MG/2 ML VIAL. IV PRN; -PROCHLORPERAZINE 10 MG/2 ML VIAL. IV PRN; -PROPOFOL 20 ML IV ONE; -fentaNYL PF VIAL 100 MCG/2 ML VIAL IV PRN
--- NOTE | 2018-08-18 05:35 | RAD ---
CHEST PA LATERAL CLINICAL INDICATION: COUGH COMPARISON: None FINDINGS: Heart is normal in size. Central bilateral perihilar bronchial wall thickening. No focal consolidation. No pneumothorax or effusion. Visualized bony thorax within normal limits. IMPRESSION: Bronchitis. Electronically signed by: Jaime Smtih DO (08/18/2018 5:32 AM) [facility] [id number]
[2018-08-18 05:46] VITALS: BP 158/70
[2018-08-18] MEDS ORDERED: AZIT250T PO (05:49)
--- NOTE | 2018-08-18 05:49 | PHYS DOC ---
Past Medical History Past Medical History: Diabetes-Type II, DVT, Hypertension, OR Past Surgical History: Cholecystectomy, Other Additional Past Surgical Histo: CATARACT-bilateral Alcohol Use: None Drug Use: None Adult General Chief Complaint Chief Complaint: COUGH HPI HPI Patient is a 73 year old [f__sex] who presents with [] Review of Systems Review of Systems Constitutional: Denies fever or chills [] Eyes: Denies change in visual acuity, redness, or eye pain [] HENT: Denies nasal congestion or sore throat [] Respiratory: Denies cough or shortness of breath [] Cardiovascular: No additional information not addressed in HPI [] GI: Denies abdominal pain, nausea, vomiting, bloody stools or diarrhea [] : Denies dysuria or hematuria [] Musculoskeletal: Denies back pain or joint pain [] Integument: Denies rash or skin lesions [] Neurologic: Denies headache, focal weakness or sensory changes [] Endocrine: Denies polyuria or polydipsia [] All other systems were reviewed and found to be within normal limits, except as documented in this note. Current Medications Current Medications Current Medications Medications (Trade) Dose Ordered Sig/Radha Start Time Stop Time Status Last Admin Dose Admin Dexamethasone (Decadron) 10 mg 1X ONCE 08/18/18 06:00 08/18/18 06:01 08/18/18 05:44 10 MG Multi-Ingredient Mouthwash/Gargle (Gi Cocktail) 20 ml 1X ONCE 08/18/18 06:00 08/18/18 06:01 08/18/18 05:44 20 ML Allergies Allergies Allergies Coded Allergies Type Severity Reaction Last Updated Verified liraglutide Adverse Reaction Intermediate Nausea and Vomiting 08/06/18 Yes Physical Exam Physical Exam Constitutional: Well developed, well nourished, no acute distress, non-toxic appearance. [] HENT: Normocephalic, atraumatic, bilateral external ears normal, oropharynx moist, no oral exudates, nose normal. [] Eyes: PERRLA, EOMI, conjunctiva normal, no discharge. [] Neck: Normal range of motion, no tenderness, supple, no stridor. [] Cardiovascular:Heart rate regular rhythm, no murmur [] Lungs & Thorax: Bilateral breath sounds clear to auscultation [] Abdomen: Bowel sounds normal, soft, no tenderness, no masses, no pulsatile masses. [] Skin: Warm, dry, no erythema, no rash. [] Back: No tenderness, no CVA tenderness. [] Extremities: No tenderness, no cyanosis, no clubbing, ROM intact, no edema. [] Neurologic: Alert and oriented X 3, normal motor function, normal sensory function, no focal deficits noted. [] Psychologic: Affect normal, judgement normal, mood normal. [] Current Patient Data Vital Signs Vital Signs Date Time Temp Pulse Resp B/P (MAP) Pulse Ox O2 Delivery O2 Flow Rate FiO2 08/18/18 05:46 60 18 158/70 (99) 97 Room Air 08/18/18 04:42 98.2 98.2 EKG EKG [] Radiology/Procedures Radiology/Procedures [] Course & Med Decision Making Course & Med Decision Making Pertinent Labs and Imaging studies reviewed. (See chart for details) [] Dragon Disclaimer Dragon Disclaimer This electronic medical record was generated, in whole or in part, using a voice recognition dictation system. Departure Departure Impression: Primary Impression: Throat soreness Disposition: 01 HOME, SELF-CARE Condition: STABLE Referrals: ELIZABETH NELSON MD (PCP) Patient Instructions: Incentive Spirometer, Sore Throat, Gsfr-yf-Nauo Additional Instructions: Your sore throat is more likely secondary to recent intubation. Hold antibiotics for 48 hours. If symptoms worsen or for fever > 100.3 F after 48 hours then start antibiotics as prescribed. Scripts Azithromycin (ZITHROMAX) 250 Mg Tablet 1 PKG PO UD for bronchitis, #6 TAB Take 2 tablets on day 1 and then 1 tablet each day for the next 4 days as directed Prov: MARJORIE JOHNSON DO 08/18/18 MARJORIE JOHNSON DO Aug 18, 2018 05:49
[2018-08-18] MEDS ORDERED: DEXAMETHASONE 4 MG TABLET PO ONE (06:00)
[2018-08-18] MEDS ORDERED: LIDO:MAALOX 1:1 20 ML SINGLE DOSE. PO ONE (06:00)
== END 2018-08-18 05:58 | disposition home or self-care (01) ==
LOC: ER 04:24
DX: R07.0 Pain in throat (principal); R05 Cough; E11.36 Type 2 diabetes mellitus with diabetic cataract; I10 Essential (primary) hypertension; I25.2 Old myocardial infarction; Z86.718 Personal history of other venous thrombosis and embolism; Z90.49 Acquired absence of other specified parts of digestive tract; Z88.8 Allergy status to other drugs, medicaments and biological substances
CPT/HCPCS: 71046; 99284; J8540

== ENCOUNTER → 2018-08-24 | Outpatient (CLI) | payer MEDICARE, OTHER ==
[2018-08-18 05:46] VITALS: BP 158/70
[~2018-08-24] MED LIST changes: +AZIT250T PO
[2018-08-24 09:50] LABS: ALBUMIN 3.1 g/dL (3.4-5.0); CALCIUM 8.6 mg/dL (8.5-10.1); CREATININE 1.8 mg/dL (0.6-1.0); GFR 27.7; PHOSPHORUS 3.8 mg/dL (2.6-4.7); POTASSIUM 3.8 mmol/L (3.5-5.1)
== END | disposition home or self-care (01) ==
LOC: LAB 08:51
PROVIDERS: ATTEND Internal Medicine Nephrology
DX: I13.0 Hypertensive heart and chronic kidney disease with heart failure and stage 1 through stage 4 chronic kidney disease, or unspecified chronic kidney disease (principal); E11.22 Type 2 diabetes mellitus with diabetic chronic kidney disease; N18.3 Chronic kidney disease, stage 3 (moderate); I50.32 Chronic diastolic (congestive) heart failure; Z68.34 Body mass index [BMI] 34.0-34.9, adult
CPT/HCPCS: 36415; 80069

== ENCOUNTER → 2018-09-17 | Outpatient (CLI) | payer MEDICARE, OTHER ==
[2018-08-18 05:46] VITALS: BP 158/70
[2018-09-17 08:53] LABS: CALCIUM 8.7 mg/dL (8.5-10.1); CREATININE 1.5 mg/dL (0.6-1.0); GFR 34.2
== END | disposition home or self-care (01) ==
LOC: LAB 08:17
PROVIDERS: ATTEND Internal Medicine Nephrology
DX: E11.22 Type 2 diabetes mellitus with diabetic chronic kidney disease (principal); I12.9 Hypertensive chronic kidney disease with stage 1 through stage 4 chronic kidney disease, or unspecified chronic kidney disease; N18.3 Chronic kidney disease, stage 3 (moderate); D63.1 Anemia in chronic kidney disease; I25.10 Atherosclerotic heart disease of native coronary artery without angina pectoris; I48.91 Unspecified atrial fibrillation; Z68.34 Body mass index [BMI] 34.0-34.9, adult
CPT/HCPCS: 36415; 80048

== ENCOUNTER → 2018-12-24 | Outpatient (CLI) | payer MEDICARE, OTHER ==
[2018-12-24 12:58] LABS: CREATININE,RANDOM URINE 64.1 mg/dL (Not Establ.)
[2018-12-24 13:04] LABS: ALBUMIN 3.3 g/dL (3.4-5.0); CALCIUM 8.6 mg/dL (8.5-10.1); GFR 24.6; POTASSIUM 3.9 mmol/L (3.5-5.1); TOTAL BILIRUBIN 0.6 mg/dL (0.2-1.0); TOTAL PROTEIN 6.7 g/dL (6.4-8.2)
[2018-12-25 01:07] LABS: HEMOGLOBIN A1C 7.1 % (4.8-5.6)
[2018-12-25 03:08] LABS: CREAT RD UR 57.8 mg/dL (Not Estab.); MICRO CREAT RATIO <5.2 mg/g creat (0.0-30.0); MICROALB RD UR <3.0 ug/mL (Not Estab.)
== END | disposition home or self-care (01) ==
LOC: LAB 11:58
PROVIDERS: ATTEND Internal Medicine Nephrology
DX: E11.22 Type 2 diabetes mellitus with diabetic chronic kidney disease (principal); I12.9 Hypertensive chronic kidney disease with stage 1 through stage 4 chronic kidney disease, or unspecified chronic kidney disease; N18.9 Chronic kidney disease, unspecified; N18.3 Chronic kidney disease, stage 3 (moderate); D63.1 Anemia in chronic kidney disease; I25.10 Atherosclerotic heart disease of native coronary artery without angina pectoris; I48.91 Unspecified atrial fibrillation; Z68.34 Body mass index [BMI] 34.0-34.9, adult
CPT/HCPCS: 36415; 80053; 82043; 82570; 83036; 84100; 84156

== ENCOUNTER → 2018-12-24 | Outpatient (CLI) | payer MEDICARE, OTHER ==
--- NOTE | 2018-12-24 14:15 | RAD ---
MR#: [id number] Date of Study: 12/24/2018 Ordering Physician: IOANA SORIANO, Referring Physician: IOANA SORIANO, Tech: Hannah Sanders RVT,BRIAN APPROVED REPORT Patient Location : OUT-PATIENT Indications History of DVT Greater Saphenous Veins (GSV) Significant venous relux noted in the RIGHT GSV at the following levels : Superficial Femoral Junctio n, Proximal Thigh, Mid Thigh, Distal Thigh Significant venous relux noted in the LEFT GSV at the following levels : Superficial Femoral Junction , Proximal Thigh Findings Teague scale images of the right SFJ reveal possible chronic thrombus that is non-occlusive. Teague scale images of the left SFJ reveal normal appearance. There is a large volume of reflux at 3.5 seconds on the right GSV There is a modearte volume of reflux at 2.3 seconds on the left GSV. The right GSV measures 10 mm, LGSV measures 8 mm Negative for reflux in the bilateral lesser saphenous veins Critical Notification Critical Value: No <Conclusion> 1. Positive for reflux in the bilateral GSV. Signed by : Ioana Soriano, Electronically Approved : 12/24/2018 14:15:06
--- NOTE | 2018-12-24 14:20 | RAD ---
MR#: [id number] Date of Study: 12/24/2018 Ordering Physician: IOANA SORIANO, Referring Physician: IOANA SORIANO, Tech: Hannah Sanders RVT, [facility] APPROVED REPORT Bilateral Lower Extremity Venous Study for DVT Patient Location: OUT-PATIENT Indications DVT of Lower Extremity:Right HX of right SFJ thrombus Vein Imaging (Right) CFV (R): Compressible SFJ (R): Partially Compressible FEM (R): Compressible POP (R): Compressible DFV (R): Compressible PTV (R): Compressible GSV (R): Compressible Peroneals (R): Compressible Vein Imaging (Left) CFV (L): Compressible SFJ (L): Compressible FEM (L): Compressible POP (L): Compressible DFV (L): Compressible PTV (L): Compressible GSV (L): Compressible Peroneals (L): Compressible Findings The bilateral lower extremity deep veins were evaluated for thrombus with color Doppler, spectral and grayscale images. On the right the grayscale images of the common femoral, superficial femoral and popliteal veins do n ot demonstrate any evidence of thrombus and these veins appear to be compressible. The below-knee vei ns were not well visualized but grossly appear to be compressible. Spectral imaging and color Doppler do not reveal any evidence of obstruction to flow with normal respirophasic variation above the knee . Below the knee there is spontaneous flow noted. On the left, the grayscale images of the common femoral, superficial femoral and popliteal veins do n ot demonstrate any evidence of thrombus and these veins appear to be compressible. The below-knee vei ns again were not well visualized but grossly appear to be compressible. Spectral imaging and color D oppler do not reveal any evidence of obstruction to flow with normal respirophasic variation above th e knee. The below-knee veins demonstrate spontaneous flow. Critical Notification Critical Value: No <Conclusion> 1. Negative for DVT in the BLE. Signed by : Ioana Soriano, Electronically Approved : 12/24/2018 14:20:02
== END | disposition home or self-care (01) ==
LOC: US 13:30
PROVIDERS: ATTEND Internal Medicine Cardiovascular Disease
DX: I87.2 Venous insufficiency (chronic) (peripheral) (principal); Z86.718 Personal history of other venous thrombosis and embolism
CPT/HCPCS: 93970

== ENCOUNTER → 2019-02-03 | Outpatient (CLI) | payer MEDICARE, OTHER ==
[~2019-02-03] MED LIST changes: +OMEP40CA45 PO; -OMEP40CA5 PO
[2019-02-03 15:03] LABS: CALCIUM 8.4 mg/dL (8.5-10.1); CREATININE 1.6 mg/dL (0.6-1.0); GFR 31.8; POTASSIUM 3.9 mmol/L (3.5-5.1)
== END | disposition home or self-care (01) ==
LOC: LAB 14:18
DX: N17.9 Acute kidney failure, unspecified (principal); E11.22 Type 2 diabetes mellitus with diabetic chronic kidney disease; I12.9 Hypertensive chronic kidney disease with stage 1 through stage 4 chronic kidney disease, or unspecified chronic kidney disease; N18.3 Chronic kidney disease, stage 3 (moderate); D63.1 Anemia in chronic kidney disease; I25.10 Atherosclerotic heart disease of native coronary artery without angina pectoris; I48.91 Unspecified atrial fibrillation; E87.5 Hyperkalemia; Z79.4 Long term (current) use of insulin; Z68.32 Body mass index [BMI] 32.0-32.9, adult
CPT/HCPCS: 36415; 80048

== ENCOUNTER → 2019-02-10 | Outpatient (CLI) | payer MEDICARE, OTHER ==
--- NOTE | 2019-02-10 18:09 | RAD ---
MR#: [id number] Date of Study: 02/10/2019 Ordering Physician: IOANA QUIROS, Referring Physician: IOANA QUIROS, Tech: GOKUL Plaza, RDMI, T APPROVED REPORT Bilateral Lower Extremity Venous Study for DVT Patient Location: OUT-PATIENT Indications POST ABLATION Findings The bilateral lower extremity deep veins were evaluated for thrombus with color Doppler, spectral and grayscale images. On the right the grayscale images of the common femoral, superficial femoral and popliteal veins do n ot demonstrate any evidence of thrombus and these veins appear to be compressible. The below-knee vei ns were not well visualized but grossly appear to be compressible. Spectral imaging and color Doppler do not reveal any evidence of obstruction to flow with normal respirophasic variation above the knee . Below the knee there is spontaneous flow noted. On the left, the grayscale images of the common femoral, superficial femoral and popliteal veins do n ot demonstrate any evidence of thrombus and these veins appear to be compressible. The below-knee vei ns again were not well visualized but grossly appear to be compressible. Spectral imaging and color D oppler do not reveal any evidence of obstruction to flow with normal respirophasic variation above th e knee. The below-knee veins demonstrate spontaneous flow. Bilateral greater saphenous veins are notable for acute clot consistent with recent ablation. No sign ificant extension to the saphenofemoral junction is noted bilaterally. Critical Notification Critical Value: No <Conclusion> 1. Negative for DVT in the lower extremities 2. Successful bilateral greater saphenous vein ablations. Signed by : Ioana Quiros, Electronically Approved : 02/10/2019 18:08:42
== END | disposition home or self-care (01) ==
LOC: US 12:33
PROVIDERS: ATTEND Internal Medicine Cardiovascular Disease
DX: I87.2 Venous insufficiency (chronic) (peripheral) (principal)
CPT/HCPCS: 93970

== ENCOUNTER → 2019-04-19 | Outpatient (CLI) | payer MEDICARE, OTHER ==
[2019-04-06 11:00] VITALS: BP 158/55
[~2019-04-19] MED LIST changes: +BARIUM SULFATE 60% 355 ML SUSP PO ONE; +FAMO-63 PO; +FERR325T14 PO
--- NOTE | 2019-04-19 13:52 | RAD ---
Examination: SMALL BOWEL SERIES History: Anemia Comparison/Correlation: None Findings: [employer] view demonstrates moderate quantity of stool in the proximal and mid colon. No suspicious abdominal calcifications. No obstruction. Oral contrast was administered for small bowel series exam. Fluoroscopy was utilized for 0.7 minutes. A total of 6 images were obtained during fluoroscopy. Normal gas pattern is unremarkable. Mild degenerative changes of the lower sacroiliac joint. Contrast is noted in the distal esophagus on the initial overhead image following oral contrast administration. Contrast is noted within the right lower quadrant on the initial image within small bowel. Contrast reaches the cecum before 60 minutes. No suspicious filling defects are identified. On overhead images, there is no suspicious strictured small bowel in the right lower quadrant region. Appendix is not seen. Impression: Contrast within the distal esophagus on the initial image raises question of reflux. Unremarkable small bowel series exam. No suspicious filling defect or stricture. Electronically signed by: Casey Gaona MD (04/19/2019 1:49 PM) [facility]
== END | disposition home or self-care (01) ==
LOC: RAD 07:43
PROVIDERS: ATTEND Internal Medicine Gastroenterology
DX: D64.9 Anemia, unspecified (principal)
CPT/HCPCS: 74250

== ENCOUNTER → 2019-05-06 | Outpatient (CLI) | payer MEDICARE, OTHER ==
[2019-04-06 11:00] VITALS: BP 158/55
[~2019-05-06] MED LIST changes: -BARIUM SULFATE 60% 355 ML SUSP PO ONE
[2019-05-06 10:19] LABS: HEMATOCRIT 32.9 % (36.0-47.0); HEMOGLOBIN 10.7 g/dL (12.0-15.5)
[2019-05-06 10:46] LABS: ALBUMIN 3.1 g/dL (3.4-5.0); CALCIUM 8.4 mg/dL (8.5-10.1); CREATININE 1.7 mg/dL (0.6-1.0); GFR 29.6; PHOSPHORUS 3.9 mg/dL (2.6-4.7); POTASSIUM 4.2 mmol/L (3.5-5.1); URIC ACID 8.5 mg/dL (2.6-6.0)
[2019-05-06 18:09] LABS: CALCIUM PTH 8.7 mg/dL (8.7-10.3); CREATININE PTH 1.62 mg/dL (0.57-1.00); PTH INTACT 82 pg/mL (15-65)
== END | disposition home or self-care (01) ==
LOC: LAB 09:18
PROVIDERS: ATTEND Internal Medicine Nephrology
DX: N17.9 Acute kidney failure, unspecified (principal); I12.9 Hypertensive chronic kidney disease with stage 1 through stage 4 chronic kidney disease, or unspecified chronic kidney disease; N18.3 Chronic kidney disease, stage 3 (moderate); E11.9 Type 2 diabetes mellitus without complications; D63.1 Anemia in chronic kidney disease; I25.10 Atherosclerotic heart disease of native coronary artery without angina pectoris; I48.91 Unspecified atrial fibrillation; Z79.4 Long term (current) use of insulin; Z68.32 Body mass index [BMI] 32.0-32.9, adult
CPT/HCPCS: 36415; 80069; 82306; 83970; 84550; 85014; 85018

== ENCOUNTER → 2019-05-06 | Outpatient (CLI) | payer MEDICARE, OTHER ==
[2019-04-06 11:00] VITALS: BP 158/55
[2019-05-06 10:32] LABS: BASO # 0.1 x10^3/uL (0.0-0.2); BASO % 1 % (0-3); EOS # 0.1 x10^3/uL (0.0-0.7); EOS % 3 % (0-3); HEMATOCRIT 32.6 % (36.0-47.0); HEMOGLOBIN 10.5 g/dL (12.0-15.5); LYMPH # 0.6 x10^3/uL (1.0-4.8); LYMPH % 14 % (24-48); MEAN CORPUSCULAR HEMOGLOBIN 25 pg (25-35); MEAN CORPUSCULAR HGB CONC 32 g/dL (31-37); MEAN CORPUSCULAR VOLUME 79 fL (79-100); MONO # 0.3 x10^3/uL (0.0-1.1); MONO % 8 % (0-9); NEUT # 3.4 x10^3/uL (1.8-7.7); NEUT % 74 % (31-73); PLATELET COUNT 163 x10^3/uL (140-400); RED BLOOD COUNT 4.15 x10^6/uL (3.50-5.40); RED CELL DISTRIBUTION WIDTH 20.4 % (11.5-14.5); WHITE BLOOD COUNT 4.6 x10^3/uL (4.0-11.0)
[2019-05-06 11:10] LABS: ANISOCYTOSIS SLIGHT; OVALOCYTES OCC; PLT ESTIMATE ADEQUATE (ADEQUATE); POIKILOCYTOSIS SLIGHT; TEAR DROP CELLS FEW
[2019-05-06 23:07] LABS: HEMOGLOBIN A1C 6.5 % (4.8-5.6)
== END | disposition home or self-care (01) ==
LOC: LAB 09:07
PROVIDERS: ATTEND Family Medicine
DX: D64.9 Anemia, unspecified (principal); E11.9 Type 2 diabetes mellitus without complications; K92.2 Gastrointestinal hemorrhage, unspecified
CPT/HCPCS: 36415; 82607; 82746; 83036; 83540; 83550; 85025

== ENCOUNTER → 2019-09-14 | Outpatient (CLI) | payer MEDICARE, OTHER ==
[2018-08-18 05:46] VITALS: BP_SYST 158
[2019-04-06 11:00] VITALS: BP_DIAS 55
--- NOTE | 2019-09-14 09:08 | CARD ---
MR#: [id number] Date of Study: 09/14/2019 Ordering Physician: IOANA QUIROS, Referring Physician: IOANA QUIROS, Tech: Rufina Lopez [facility] APPROVED REPORT EXAM: Two-dimensional and M-mode echocardiogram with Doppler and color Doppler. Other Information Quality : Good INDICATION Cardiac Disease: CAD 2D DIMENSIONS RVDd3.2 (2.9-3.5cm)Left Atrium(2D)3.7 (1.6-4.0cm) IVSd1.1 (0.7-1.1cm)Aortic Root(2D)2.4 (2.0-3.7cm) LVDd4.0 (3.9-5.9cm)LVOT Diameter2.1 (1.8-2.4cm) PWd1.1 (0.7-1.1cm)LVDs2.9 (2.5-4.0cm) FS (%) 27.4 %SV38.0 ml LVEF(%)55.0 (>50%) Aortic Valve AoV Peak Arthur.129.3cm/sAoV VTI25.6cm AO Peak GR.6.7mmHgLVOT Peak Arthur.143.5cm/s AO Mean GR.3mmHgAVA (VMAX)3.71cm2 ELMER (VTI)3.40cm2 Mitral Valve MV E Cxulglae55.6cm/sMV DECEL NGGY308mf MV A Fvopzcyp59.5cm/sE/A Ratio1.4 Tricuspid Valve TR P. Syjdevmx375zi/sRAP YTJIZLUU9mdYj TR Peak Gr.79srJdSIBP41qhZe Pulmonary Vein S1 Umezvvmt75.8cm/sD2 Frmghppw95.9cm/s LEFT VENTRICLE The left ventricle is normal size. There is normal left ventricular wall thickness. The left ventricu lar systolic function is normal and the ejection fraction is within normal range. The Ejection Fracti on is 55-60%. There is normal LV segmental wall motion. RIGHT VENTRICLE The right ventricle is normal size. The right ventricular systolic function is normal. ATRIA The left atrium size is normal. The right atrium size is normal. The interatrial septum is intact wit h no evidence for an atrial septal defect or patent foramen ovale as noted on 2-D or Doppler imaging. AORTIC VALVE The aortic valve is normal in structure and function. Doppler and Color Flow revealed no significant aortic regurgitation. There is no significant aortic valvular stenosis. MITRAL VALVE The mitral valve is normal in structure and function. There is no evidence of mitral valve prolapse. There is no mitral valve stenosis. Doppler and Color Flow revealed no mitral valve regurgitation note d. TRICUSPID VALVE The tricuspid valve is normal in structure and function. Doppler and Color Flow revealed trace tricus pid regurgitation. The PA pressure was estimated at 19 mmHg. There is no tricuspid valve stenosis. PULMONIC VALVE The pulmonic valve is not well visualized. Doppler and Color Flow revealed no pulmonic valvular regur gitation. There is no pulmonic valvular stenosis. GREAT VESSELS The aortic root is normal in size. The ascending aorta is normal in size. The IVC is normal in size a nd collapses >50% with inspiration. PERICARDIAL EFFUSION There is no evidence of significant pericardial effusion. Critical Notification Critical Value: No <Conclusion> The left ventricle is normal size. The left ventricular systolic function is normal and the ejection fraction is within normal range. The Ejection Fraction is 55-60%. Doppler and Color Flow revealed no significant aortic regurgitation. There is no significant aortic valvular stenosis. Doppler and Color Flow revealed no mitral valve regurgitation noted. Doppler and Color Flow revealed trace tricuspid regurgitation. The PA pressure was estimated at 19 mmHg. Signed by : Bulmaro Gibson MD Electronically Approved : 09/14/2019 09:08:25
[2019-09-14 10:01] LABS: ALBUMIN 3.2 g/dL (3.4-5.0); TOTAL PROTEIN 6.6 g/dL (6.4-8.2)
[2019-09-14 10:02] LABS: ALBUMIN/GLOBULIN RATIO 0.9 (1.0-1.7); CALCIUM 8.5 mg/dL (8.5-10.1); CHOLESTEROL/HDL RATIO 2.3; CREATININE 1.4 mg/dL (0.6-1.0); POTASSIUM 3.8 mmol/L (3.5-5.1); TOTAL BILIRUBIN 0.4 mg/dL (0.2-1.0)
== END | disposition home or self-care (01) ==
LOC: ECHO 07:44
PROVIDERS: ATTEND Internal Medicine Cardiovascular Disease
DX: I25.10 Atherosclerotic heart disease of native coronary artery without angina pectoris (principal); I12.9 Hypertensive chronic kidney disease with stage 1 through stage 4 chronic kidney disease, or unspecified chronic kidney disease; N17.9 Acute kidney failure, unspecified; N18.3 Chronic kidney disease, stage 3 (moderate); E11.22 Type 2 diabetes mellitus with diabetic chronic kidney disease; D63.1 Anemia in chronic kidney disease; I48.91 Unspecified atrial fibrillation; E87.5 Hyperkalemia; Z79.4 Long term (current) use of insulin; Z68.32 Body mass index [BMI] 32.0-32.9, adult
CPT/HCPCS: 36415; 80053; 80061; 83721; 93306

== ENCOUNTER → 2019-09-14 | Outpatient (CLI) | payer MEDICARE, OTHER ==
[2019-04-06 11:00] VITALS: BP 158/55
[2019-09-14 08:19] LABS: HEMATOCRIT 35.7 % (36.0-47.0); HEMOGLOBIN 12.1 g/dL (12.0-15.5)
[2019-09-14 08:47] LABS: ALBUMIN 3.2 g/dL (3.4-5.0); CALCIUM 8.5 mg/dL (8.5-10.1); CREATININE 1.5 mg/dL (0.6-1.0); GFR 34.1; PHOSPHORUS 4.2 mg/dL (2.6-4.7); POTASSIUM 3.8 mmol/L (3.5-5.1); URIC ACID 4.8 mg/dL (2.6-6.0)
[2019-09-15 00:07] LABS: CALCIUM PTH 8.8 mg/dL (8.7-10.3); CREATININE PTH 1.42 mg/dL (0.57-1.00); PHOSPHORUS PTH 4.1 mg/dL (3.0-4.3); PTH INTACT 28 pg/mL (15-65)
== END | disposition home or self-care (01) ==
LOC: LAB 07:49
PROVIDERS: ATTEND Nurse Practitioner Adult Health
DX: I12.9 Hypertensive chronic kidney disease with stage 1 through stage 4 chronic kidney disease, or unspecified chronic kidney disease (principal); N18.3 Chronic kidney disease, stage 3 (moderate); E11.22 Type 2 diabetes mellitus with diabetic chronic kidney disease; N17.9 Acute kidney failure, unspecified; I25.10 Atherosclerotic heart disease of native coronary artery without angina pectoris; I48.91 Unspecified atrial fibrillation; D63.1 Anemia in chronic kidney disease; Z68.32 Body mass index [BMI] 32.0-32.9, adult; Z79.4 Long term (current) use of insulin
CPT/HCPCS: 36415; 80069; 82306; 83970; 84550; 85014; 85018

== ENCOUNTER → 2020-01-12 | Outpatient (CLI) | payer MEDICARE, OTHER ==
[2019-04-06 11:00] VITALS: BP 158/55
[2020-01-12 10:10] LABS: BASO # 0.1 x10^3/uL (0.0-0.2); BASO % 1 % (0-3); EOS # 0.1 x10^3/uL (0.0-0.7); EOS % 2 % (0-3); HEMATOCRIT 37.3 % (36.0-47.0); HEMOGLOBIN 12.4 g/dL (12.0-15.5); LYMPH # 0.9 x10^3/uL (1.0-4.8); LYMPH % 16 % (24-48); MEAN CORPUSCULAR HEMOGLOBIN 29 pg (25-35); MEAN CORPUSCULAR HGB CONC 33 g/dL (31-37); MEAN CORPUSCULAR VOLUME 88 fL (79-100); MONO # 0.4 x10^3/uL (0.0-1.1); MONO % 7 % (0-9); NEUT # 4.2 x10^3/uL (1.8-7.7); NEUT % 74 % (31-73); PLATELET COUNT 188 x10^3/uL (140-400); RED BLOOD COUNT 4.24 x10^6/uL (3.50-5.40); RED CELL DISTRIBUTION WIDTH 14.2 % (11.5-14.5); WHITE BLOOD COUNT 5.7 x10^3/uL (4.0-11.0)
[2020-01-12 10:20] LABS: ALBUMIN 3.5 g/dL (3.4-5.0); CALCIUM 8.6 mg/dL (8.5-10.1); CREATININE 1.4 mg/dL (0.6-1.0); POTASSIUM 3.9 mmol/L (3.5-5.1); TOTAL BILIRUBIN 0.5 mg/dL (0.2-1.0); TOTAL PROTEIN 7.1 g/dL (6.4-8.2)
[2020-01-12 10:21] LABS: CHOLESTEROL/HDL RATIO 2.5
== END | disposition home or self-care (01) ==
LOC: LAB 09:36
PROVIDERS: ATTEND Internal Medicine Cardiovascular Disease
DX: I10 Essential (primary) hypertension (principal); D64.9 Anemia, unspecified; E78.5 Hyperlipidemia, unspecified
CPT/HCPCS: 36415; 80053; 80061; 83721; 85025

== ENCOUNTER → 2020-03-24 | Outpatient (CLI) | payer MEDICARE, OTHER ==
[2019-04-06 11:00] VITALS: BP 158/55
[~2020-03-24] MED LIST changes: -AMIO200T4 PO; +AMIO200T6 PO; +AMLO-187 PO; -AMLO10TA8 PO
[2020-03-24 10:03] LABS: ALBUMIN 3.1 g/dL (3.4-5.0); CALCIUM 8.8 mg/dL (8.5-10.1); CREATININE 1.2 mg/dL (0.6-1.0); GFR 44.2; PHOSPHORUS 3.8 mg/dL (2.6-4.7); POTASSIUM 3.7 mmol/L (3.5-5.1)
[2020-03-24 10:28] LABS: CREATININE,RANDOM URINE 33.8 mg/dL (Not Establ.)
[2020-03-24 23:11] LABS: CREAT RD UR 36.5 mg/dL (Not Estab.); MICRO CREAT RATIO <8 mg/g creat (0-29); MICROALB RD UR <3.0 ug/mL (Not Estab.)
== END ==
LOC: LAB 09:05
PROVIDERS: ATTEND Internal Medicine Nephrology
DX: I12.9 Hypertensive chronic kidney disease with stage 1 through stage 4 chronic kidney disease, or unspecified chronic kidney disease (principal); N17.9 Acute kidney failure, unspecified; D63.1 Anemia in chronic kidney disease; I48.91 Unspecified atrial fibrillation; E55.9 Vitamin D deficiency, unspecified; E79.0 Hyperuricemia without signs of inflammatory arthritis and tophaceous disease; Z68.33 Body mass index [BMI] 33.0-33.9, adult
CPT/HCPCS: 80069; 82043; 82570; 84156

== ENCOUNTER → 2020-08-31 | Day surgery (SDC) | payer MEDICARE, OTHER ==
[~2020-08-31] VITALS: Ht 165.1 cm; Wt 93.1 kg
[~2020-08-31] MED LIST changes: +ALLO100T PO; -ISOS30TA4 PO; +ISOS30TA68 PO; -ISOS60TA2 PO; +ISOS60TA55 PO; +IV RINGERS,LACTATED 1000ML 1,000 ML IV SCH; +LIDOCAINE 2% PF 5 ML VIAL. ONE; +LISI10TA16 PO; -LISI10TA2 PO; +PROPOFOL 10 MG/ML (20ML) VIAL. IV ONE
[2020-08-31 10:07] VITALS: BP 128/60
[2020-08-31 11:40] VITALS: BP 128/60
--- NOTE | 2020-09-04 19:08 | PATHOLOGY ---
[facility] Accession Number: [id number] . 01 Material submitted: . PART A: small bowel - SMALL BOWEL BIOPSY PART B: gastrointestinal site - GASTRIC ANTRUM BIOPSY. Modifiers: ANTRUM PART C: ANTRUM - ANTRAL POLYPS BIOPSY PART D: gastrointestinal site - FUNDAL POLYPS PART E: esophagus - DISTAL ESOPHAGEAL BIOPSY. Modifiers: distal PART F: colon - ASCENDING COLON POLYP. Modifiers: ascending PART G: colon - TRANSVERSE COLON POLYP BIOPSY. Modifiers: transverse . 01 Clinical history: . GERD HX OF POLYPS EGD COLONOSCOPY . 02 Diagnosis: A. Small bowel biopsies: - Focally prominent submucosal Yenni's glands with overlying mild non-specific duodenitis. . B. Gastric biopsies, antrum: - Reactive gastropathy with mild chronic and focal mild acute inflammation. . C. Gastric biopsies, antral polyps: - Hyperplastic polyps with focal mild chronic inflammation. . D. Gastric biopsies, fundal polyps: - Hyperplastic polyps with focal mild chronic inflammation. . E. Esophageal biopsies, distal esophagus: - Segments of esophagogastric and gastric mucosa showing chronic inflammation. . F. Colon biopsies, ascending colon polyp: - Hyperplastic polyp showing focal erosion and acute and chronic inflammation. . G. Colon biopsies, transverse colon polyps: - Tubular adenomas. LBQ 09/04/2020 1342 Local . 02 Comment: Sections of the small bowel biopsy reveal multiple segments of duodenal mucosa showing focally prominent submucosal Yenni's glands with chronic inflammation and a few admixed neutrophils within the overlying duodenal mucosa. There are no sprue-like changes. . Sections of the gastric antral biopsy show congestion, edema, and foveolar hyperplasia with mild chronic and focal mild acute inflammation. A properly controlled immunoperoxidase stain for Helicobacter is negative for Helicobacter organisms. . Sections of the gastric antral and gastric fundic polyp biopsies appear similar and reveal hyperplastic polyps. There are no adenomatous changes or evidence of malignancy. . Sections of the distal esophageal biopsy reveal segments of esophagogastric and gastric mucosa showing mild to focal moderate chronic inflammation. There is no evidence of Blunt's change, dysplasia, or malignancy. . Sections of the ascending colon polyp biopsy reveal a hyperplastic polyp showing focal erosion and acute and chronic inflammation. . Sections of the transverse colon polyps biopsies reveal multiple segments of tubular adenoma and multiple segments of colonic mucosa. There is no high grade dysplasia of evidence of malignancy. (JPM/db; 09/04/2020) . 02 Electronically signed: . Dereck Narayan MD, Pathologist NPI- [id number] . 01 Gross description: . A. The specimen is received in formalin, labeled "Jeffrey, Kwasi, small bowel biopsy" and consist of 4 fragments of soft nicole tissue measuring up to 0.3 cm. Entirely submitted in A1. . B. The specimen is received in formalin, labeled "Jeffrey, Kwasi, biopsy gastric antrum" and consist of 1 fragment of soft nicole tissue measuring up to 0.3 cm. Entirely submitted in B1. . C. The specimen is received in formalin, labeled "Jeffrey, Kwasi, antral polyps biopsy" and consist of 1 fragment soft nicole tissue measuring up to 0.3 cm. Entirely submitted in C1. . D. The specimen is received in formalin, labeled "Jeffrey, Kwasi, fundal polyps biopsy" and consist of 1 fragment soft nicole tissue measuring up to 0.3 cm. Entirely submitted in D1. . E. The specimen is received in formalin, labeled "Jeffrey, Kwasi, distal esophageal biopsy" and consist of multiple fragments soft niocle tissue measuring up to 0.3 cm. Entirely submitted in E1. . F. The specimen is received in formalin, labeled "Jeffrey, Kwasi, ascending colon polyp biopsy" and consist of 2 fragments soft nicole tissue measuring up to 0.4 cm. Entirely submitted in F1. . G. The specimen is received in formalin, labeled "Jeffrey, Kwasi, transverse colon polyp biopsy" and consist of multiple fragments of soft nicole tissue measuring up to 0.3 cm. Entirely submitted in G1. ([facility]; 08/31/2020) [facility]U 08/31/2020 2325 Local . 02 Pathologist provided ICD-10: K31.9, K29.50, K31.7, K20.90, K63.5, K52.9, D12.3 . 02 CPT . 276592, 894794, 517406, 483813, 981014, 572059, 553533, J33161 Specimen Comment: A courtesy copy of this report has been sent to [phone] Specimen Comment: [id number] Specimen Comment: Report sent to / DR NELSON Performed at: 01 [facility] [address], [place] [id number] MD Rigoberto Cunningham MD Phone: [phone] Performed at: 02 [facility] [address], [place] [id number] MD Dereck Narayan MD Phone: [phone]
== END | disposition home or self-care (01) ==
LOC: SURG 09:25
PROVIDERS: ATTEND Internal Medicine Gastroenterology
DX: Z12.11 Encounter for screening for malignant neoplasm of colon (principal); K64.0 First degree hemorrhoids; K63.89 Other specified diseases of intestine; D12.3 Benign neoplasm of transverse colon; K31.7 Polyp of stomach and duodenum; K29.50 Unspecified chronic gastritis without bleeding; K21.00 Gastro-esophageal reflux disease with esophagitis, without bleeding; K31.89 Other diseases of stomach and duodenum; I11.0 Hypertensive heart disease with heart failure; I50.9 Heart failure, unspecified; E78.00 Pure hypercholesterolemia, unspecified; I48.91 Unspecified atrial fibrillation; E11.9 Type 2 diabetes mellitus without complications; E66.9 Obesity, unspecified; G47.30 Sleep apnea, unspecified; M19.90 Unspecified osteoarthritis, unspecified site; I25.10 Atherosclerotic heart disease of native coronary artery without angina pectoris; Z79.82 Long term (current) use of aspirin; Z79.899 Other long term (current) drug therapy; Z98.890 Other specified postprocedural states; Z88.8 Allergy status to other drugs, medicaments and biological substances; Z20.822 Contact with and (suspected) exposure to COVID-19
CPT/HCPCS: 43239; 45380; 87426; J2704; 88305; 88342

== ENCOUNTER → 2020-10-02 | Outpatient (CLI) | payer MEDICARE, OTHER ==
[2020-08-31 11:40] VITALS: BP 128/60
[~2020-10-02] MED LIST changes: -IV RINGERS,LACTATED 1000ML 1,000 ML IV SCH; -LIDOCAINE 2% PF 5 ML VIAL. ONE; -OMEP40CA45 PO; +OMEP40CA7 PO; -PROPOFOL 10 MG/ML (20ML) VIAL. IV ONE
[2020-10-02 09:21] LABS: HEMATOCRIT 36.4 % (36.0-47.0); HEMOGLOBIN 12.1 g/dL (12.0-15.5)
[2020-10-02 09:30] LABS: CREATININE,RANDOM URINE 75.4 mg/dL (Not Establ.)
[2020-10-02 09:57] LABS: ALBUMIN 3.3 g/dL (3.4-5.0); CALCIUM 8.3 mg/dL (8.5-10.1); CREATININE 1.4 mg/dL (0.6-1.0); GFR 36.9; PHOSPHORUS 3.7 mg/dL (2.6-4.7)
[2020-10-02 23:08] LABS: CREAT RD UR 76.3 mg/dL (Not Estab.); MICROALB RD UR 9.9 ug/mL (Not Estab.)
== END ==
LOC: LAB 08:12
PROVIDERS: ATTEND Nurse Practitioner Adult Health
DX: I12.9 Hypertensive chronic kidney disease with stage 1 through stage 4 chronic kidney disease, or unspecified chronic kidney disease (principal); N17.9 Acute kidney failure, unspecified; N18.32 Chronic kidney disease, stage 3b; E11.9 Type 2 diabetes mellitus without complications; D63.1 Anemia in chronic kidney disease; I25.10 Atherosclerotic heart disease of native coronary artery without angina pectoris; I48.91 Unspecified atrial fibrillation; E87.5 Hyperkalemia; Z79.4 Long term (current) use of insulin; E55.9 Vitamin D deficiency, unspecified; E79.0 Hyperuricemia without signs of inflammatory arthritis and tophaceous disease; Z68.34 Body mass index [BMI] 34.0-34.9, adult
CPT/HCPCS: 80069; 82043; 82570; 82728; 83540; 83550; 84156; 85014; 85018

== ENCOUNTER → 2021-05-09 | Outpatient (CLI) | payer MEDICARE, OTHER ==
[2020-08-31 11:40] VITALS: BP 128/60
[~2021-05-09] MED LIST changes: +AMIO200T53 PO; -AMIO200T6 PO
[2021-05-09 09:00] LABS: ALBUMIN 3.1 g/dL (3.4-5.0); CALCIUM 8.4 mg/dL (8.5-10.1); CREATININE 1.2 mg/dL (0.6-1.0); PHOSPHORUS 4.8 mg/dL (2.6-4.7); POTASSIUM 4.7 mmol/L (3.5-5.1)
== END ==
LOC: LAB 08:18
PROVIDERS: ATTEND Internal Medicine Nephrology
DX: I12.9 Hypertensive chronic kidney disease with stage 1 through stage 4 chronic kidney disease, or unspecified chronic kidney disease (principal); E11.22 Type 2 diabetes mellitus with diabetic chronic kidney disease; N18.32 Chronic kidney disease, stage 3b; N17.9 Acute kidney failure, unspecified; D63.1 Anemia in chronic kidney disease; I25.10 Atherosclerotic heart disease of native coronary artery without angina pectoris; I48.91 Unspecified atrial fibrillation; E87.5 Hyperkalemia; Z79.4 Long term (current) use of insulin; E55.9 Vitamin D deficiency, unspecified; E79.0 Hyperuricemia without signs of inflammatory arthritis and tophaceous disease; Z68.34 Body mass index [BMI] 34.0-34.9, adult
CPT/HCPCS: 36415; 80069

== ENCOUNTER → 2021-05-09 | Outpatient (CLI) | payer MEDICARE, OTHER ==
[2020-08-31 11:40] VITALS: BP 128/60
--- NOTE | 2021-05-09 16:18 | CARD ---
MR#: [id number] Date of Study: 05/09/2021 Ordering Physician: IOANA QUIROS, Referring Physician: IOANA QUIROS, Tech: Isabel Kim [facility] APPROVED REPORT EXAM: Two-dimensional and M-mode echocardiogram with Doppler and color Doppler. Other Information Quality : AverageHR: 60bpm Rhythm : NSR INDICATION Cardiac Disease: CAD RISK FACTORS Hypertension Obesity Hyperlipidemia 2D DIMENSIONS RVDd3.3 (2.9-3.5cm)Left Atrium(2D)4.6 (1.6-4.0cm) IVSd1.0 (0.7-1.1cm)Aortic Root(2D)2.6 (2.0-3.7cm) LVDd4.3 (3.9-5.9cm)LVOT Diameter2.0 (1.8-2.4cm) PWd1.2 (0.7-1.1cm)LVDs2.6 (2.5-4.0cm) FS (%) 39.8 %SV59.4 ml Aortic Valve AoV Peak Arthur.109.2cm/sAoV VTI28.4cm AO Peak GR.4.8mmHgLVOT Peak Arthur.100.2cm/s AO Mean GR.2mmHgAVA (VMAX)3.02cm2 Mitral Valve MV E Ckuiljhd61.0cm/sMV DECEL [id number] MV A Eorqdruj86.2cm/sE/A Ratio2.0 Pulmonary Valve PV Peak Aqhjnvpy363.2cm/s Tricuspid Valve TR P. Ukapoumd183kg/sTR Peak Gr.24mmHg LEFT VENTRICLE The left ventricle is normal size. There is borderline concentric left ventricular hypertrophy. The l eft ventricular systolic function is normal and the ejection fraction is within normal range. LV ejec tion fraction of 55 to 60%. There is normal LV segmental wall motion. The left ventricular diastolic function and filling is normal for age. RIGHT VENTRICLE The right ventricle is normal size. There is normal right ventricular wall thickness. The right ventr icular systolic function is normal. ATRIA The left atrium size is normal. The right atrium size is normal. There is a small PFO noted on Dopple r imaging, agitated contrast saline was not performed on this study. AORTIC VALVE The aortic valve is normal in structure and function. Doppler and Color Flow revealed no significant aortic regurgitation. There is no significant aortic valvular stenosis. MITRAL VALVE The mitral valve is normal in structure and function. There is no evidence of mitral valve prolapse. There is no mitral valve stenosis. Doppler and Color-flow revealed trace mitral regurgitation. TRICUSPID VALVE The tricuspid valve is normal in structure and function. Doppler and Color Flow revealed trace tricus pid regurgitation. Esitmated PAP 28 mmHg. There is no tricuspid valve stenosis. PULMONIC VALVE The pulmonary valve is normal in structure and function. Doppler and Color Flow revealed no pulmonic valvular regurgitation. GREAT VESSELS The aortic root is normal in size. The ascending aorta is normal in size. The IVC is normal in size a nd collapses >50% with inspiration. PERICARDIAL EFFUSION There is no evidence of significant pericardial effusion. Critical Notification Critical Value: No <Conclusion> The left ventricle is normal size. The left ventricular systolic function is normal and the ejection fraction is within normal range. LV ejection fraction of 55 to 60%. There is borderline concentric left ventricular hypertrophy. There is a small PFO noted on Doppler imaging, agitated contrast saline was not performed on this per dy. Doppler and Color Flow revealed no significant aortic regurgitation. There is no significant aortic valvular stenosis. Doppler and Color-flow revealed trace mitral regurgitation. Doppler and Color Flow revealed trace tricuspid regurgitation. Esitmated PAP 28 mmHg. Signed by : Bulmaro Gibson MD Electronically Approved : 05/09/2021 16:17:39
== END ==
LOC: ECHO 08:11
PROVIDERS: ATTEND Internal Medicine Cardiovascular Disease
DX: I51.7 Cardiomegaly (principal); I25.10 Atherosclerotic heart disease of native coronary artery without angina pectoris
CPT/HCPCS: 93306; C8929

== ENCOUNTER → 2021-09-06 | Day surgery (SDC) | payer MEDICARE, OTHER ==
[~2021-09-06] VITALS: Ht 162.6 cm; Wt 90.0 kg
[~2021-09-06] MED LIST changes: +ASPI-630 PO; +CHOL10004 PO; +EMPA10TA3 PO; +EPINEPHrine SYRINGE 1 MG/10 ML SYRINGE. ONE; +EPINEPHrine SYRINGE 1 MG/10 ML SYRINGE. SQ ONE; +FOLI0.8T5 PO; +HYDROmorphone 2 MG/ML INJ. IVP PRN; +INSU100I13 SQ; +IV RINGERS,LACTATED 1000ML 1,000 ML IV SCH; +LIDOCAINE 2% PF 5 ML VIAL. ONE; +LISI20TA18 PO; +MORPHINE SULFATE 2 MG/ML INJ. IVP PRN; +PHENYLEPHRINE in 0.9% NACL PF 1 MG/10 ML SYRINGE. IV ONE; +PROCHLORPERAZINE 10 MG/2 ML VIAL. IVP PRN; +PROPOFOL 10 MG/ML (20ML) VIAL. IV ONE; +ePHEDrine PF IN SALINE 50 MG/10 ML SYRINGE. IV ONE; +fentaNYL PF VIAL 100 MCG/2 ML VIAL IVP PRN
[2021-09-06 08:23] VITALS: BP 122/57
[2021-09-06 10:20] VITALS: BP 100/58
--- NOTE | 2021-09-07 16:07 | PATHOLOGY ---
[facility] Accession Number: [id number] . 01 Material submitted: . PART A: small bowel - SMALL BOWEL NODULE PART B: duodenum - 2ND PORTION DUODENUM PART C: gastrointestinal site - GASTRIC ANTRUM BIOPSY PART D: stomach - FUNDIC POLYPS PART E: esophagus - DISTAL ESOPHAGEAL BIOPSY PART F: colon - ASCENDING COLON POLYPS PART G: sigmoid colon - SIGMOID COLON POLYPS PART H: rectum - RECTAL POLYPS . 01 Clinical history: . HX POLYPS, GASTRIC POLYPS . 02 Diagnosis: A. Small bowel biopsies, small bowel nodule: - Focal lymphangiectasia. . B. Small bowel biopsies, second portion of duodenum: - No diagnostic abnormalities. . C. Gastric biopsies, antrum: - Focal foveolar hyperplasia with presence of pigmented macrophages within superficial lamina propria. . D. Gastric biopsy, fundic polyp: - Hyperplastic polyp with acute and chronic inflammation. . E. Esophageal biopsies, distal esophagus: - Segments of gastric and esophagogastric mucosa showing mild chronic inflammation. . F. Colon biopsies, ascending colon polyps: - Tubular adenomas. . G. Colon biopsy, sigmoid colon polyp: - Tubular adenoma. . H. Colorectal biopsy, rectal polyp: - Hyperplastic polyp. . (LENM:tamy; 09/07/2021) [facility] 09/07/2021 1526 Local . 02 Comment: Sections of the small bowel nodule biopsy reveal small intestine mucosa showing focal mucosal lymphangiectasia. There are no sprue-like changes or significant inflammatory changes. . Sections of the second portion of duodenum biopsy reveal duodenal and small intestine mucosa. Where best oriented, the mucosal villi show no sprue-like changes or significant inflammatory changes. . Sections of the gastric antral biopsy show focal reactive foveolar hyperplasia and presence of brown granular pigmented histiocytes within the superficial lamina propria. The pigmented material may represent iron or melanin. There is a small focus of active chronic inflammation. A properly controlled immunoperoxidase stain for Helicobacter is negative for Helicobacter organisms. . Sections of the fundic polyp biopsy reveal a hyperplastic polyp showing acute and chronic inflammation and focal acute inflammatory exudate. There are no adenomatous changes or evidence of malignancy. . Sections of the distal esophageal biopsy reveal multiple segments of gastric mucosa, one of which has an attached small portion of squamous esophageal mucosa. There is mild chronic inflammation. There is no evidence of Blunt's change, dysplasia, or malignancy. . Sections of the ascending colon and sigmoid colon biopsies reveal tubular adenomas showing no high-grade dysplasia or evidence of malignancy. . Sections of the rectal biopsy reveal a hyperplastic polyp. . (JPM:sock liner; 09/07/2021) . . . Special stain performed: Immunoperoxidase stain for Helicobacter on C1 . 02 Electronically signed: . Dereck Narayan MD, Pathologist NPI- [id number] . 01 Gross description: . A. The specimen is received in formalin, labeled "Jeffrey, Kwasi, small bowel nodule". Received are 2 segments of pale nicole tissue ranging in size from 0.2 cm to 0.3 cm in maximum dimensions. The specimen is submitted entirely in cassette A1. . B. The specimen is received in formalin, labeled "Jeffrey, Kwasi, second portion duodenum BX". Received are 3 segments of pale nicole tissue ranging in size from 0.1 to 0.4 cm in maximum dimensions. The specimen is submitted entirely in cassette B1. . C. The specimen is received in formalin, labeled "Jeffrey, Kwasi, gastric antrum BX". Received is a segment of pale nicole tissue measuring 0.5 cm in maximum dimensions. The specimen is submitted entirely in cassette C1. . D. The specimen is received in formalin, labeled "Jeffrey, Kwasi, fundic polyp". Received is a segment of pale nicole tissue measuring 0.4 cm in maximum dimensions. The specimen is submitted entirely in cassette D1. . E. The specimen is received in formalin, labeled "Jeffrey, Kwasi, distal esophagus BX". Received are 3 segments of pale nicole tissue ranging in size from 0.2 cm to 0.5 cm in maximum dimensions. The specimen is submitted entirely in cassette E1. . F. The specimen is received in formalin, labeled "Jeffrey, Kwasi, ascending colon polyps". Received are multiple segments of light nicole tissue measuring 0.9 x 0.3 x 0.1 cm in aggregate dimensions. The specimen is filtered and entirely submitted in cassette F1. . G. The specimen is received in formalin, labeled "Jeffrey, Kwasi, sigmoid colon polyps". Received is a segment of pale nicole tissue measuring 0.3 cm in maximum dimensions. The specimen is submitted entirely in cassette G1. . H. The specimen is received in formalin, labeled "Jeffrey, Kwasi, rectal polyps". Received is a segment of pale nicole tissue measuring 0.2 cm in maximum dimensions. The specimen is submitted entirely in cassette H1.([facility]; 09/06/2021) [facility] 09/07/2021 1239 Local . 02 Pathologist provided ICD-10: K29.50, K20.90, D12.2, D12.5, K63.5 . 02 CPT . 249980, 270617, 630375, 242860, 999430, 126864, 028280, 878853, G80130 Specimen Comment: A courtesy copy of this report has been sent to [phone] Specimen Comment: [id number] Specimen Comment: Report sent to / DR CALABRESE Performed at: 01 [facility] [address], [place] [id number] MD Rigoberto Cunningham MD Phone: [phone] Performed at: 02 [facility] [address] [place], [place] [id number] MD Dereck Narayan MD Phone: [phone]
== END | disposition home or self-care (01) ==
LOC: ENDOS 08:06
PROVIDERS: ATTEND Internal Medicine Gastroenterology
DX: Z12.11 Encounter for screening for malignant neoplasm of colon (principal); D12.2 Benign neoplasm of ascending colon; D12.5 Benign neoplasm of sigmoid colon; K29.50 Unspecified chronic gastritis without bleeding; K21.00 Gastro-esophageal reflux disease with esophagitis, without bleeding; K63.89 Other specified diseases of intestine; K31.89 Other diseases of stomach and duodenum; I11.0 Hypertensive heart disease with heart failure; I50.9 Heart failure, unspecified; I48.91 Unspecified atrial fibrillation; E78.00 Pure hypercholesterolemia, unspecified; I25.10 Atherosclerotic heart disease of native coronary artery without angina pectoris; G47.30 Sleep apnea, unspecified; E66.9 Obesity, unspecified; E11.9 Type 2 diabetes mellitus without complications; M19.90 Unspecified osteoarthritis, unspecified site; Z79.82 Long term (current) use of aspirin; Z79.4 Long term (current) use of insulin; Z79.899 Other long term (current) drug therapy; Z98.890 Other specified postprocedural states; Z88.8 Allergy status to other drugs, medicaments and biological substances
CPT/HCPCS: 43239; 43255; 45380; 88305; 88342; J0171; J2370; J2704

== ENCOUNTER → 2021-09-12 | Outpatient (CLI) | payer MEDICARE, OTHER ==
[2021-09-06 10:20] VITALS: BP 100/58
[~2021-09-12] MED LIST changes: -EPINEPHrine SYRINGE 1 MG/10 ML SYRINGE. ONE; -EPINEPHrine SYRINGE 1 MG/10 ML SYRINGE. SQ ONE; -HYDROmorphone 2 MG/ML INJ. IVP PRN; -IV RINGERS,LACTATED 1000ML 1,000 ML IV SCH; -LIDOCAINE 2% PF 5 ML VIAL. ONE; -MORPHINE SULFATE 2 MG/ML INJ. IVP PRN; -PHENYLEPHRINE in 0.9% NACL PF 1 MG/10 ML SYRINGE. IV ONE; -PROCHLORPERAZINE 10 MG/2 ML VIAL. IVP PRN; -PROPOFOL 10 MG/ML (20ML) VIAL. IV ONE; -ePHEDrine PF IN SALINE 50 MG/10 ML SYRINGE. IV ONE; -fentaNYL PF VIAL 100 MCG/2 ML VIAL IVP PRN
[2021-09-12 10:39] LABS: ALBUMIN/GLOBULIN RATIO 0.8 (1.0-1.7); CALCIUM 8.5 mg/dL (8.5-10.1); CREATININE 1.9 mg/dL (0.6-1.0); GFR 25.8; POTASSIUM 4.4 mmol/L (3.5-5.1); TOTAL BILIRUBIN 0.5 mg/dL (0.2-1.0); TOTAL PROTEIN 6.6 g/dL (6.4-8.2)
== END ==
LOC: LAB 09:39
PROVIDERS: ATTEND Internal Medicine Cardiovascular Disease
DX: I10 Essential (primary) hypertension (principal)
CPT/HCPCS: 36415; 80053; 82550; 83615; 83735